=== PATIENT | female | born 1945 | race Caucasian/White ===

== ENCOUNTER 2017-09-01 05:35 | Day surgery (SDC) | payer MEDICARE ==
[2017-09-01] MEDS ORDERED: DIPRIVAN 200 MG/20 ML IV ONE (05:36)
[2017-09-01] MEDS ORDERED: Ketamine HCl 50 MG/ML IJ ONE (05:36)
[2017-09-01] MEDS ORDERED: Lactated Ringers 1,000 ML IV SCH (06:00)
[2017-09-01] MEDS ORDERED: Xopenex 1.25 MG/0.5 ML UD NEBULE IH ONE ×2 (06:27→06:43)
[2017-09-01] MEDS ORDERED: Sodium Chloride 3 ML UD NEBULES IH ONE (06:27)
[2017-09-01] MEDS ORDERED: Lactated Ringers 1,000 ML IV ONE (08:14)
[2017-09-01 09:10] VITALS: BP 149/70; O2SAT 92
[2017-09-01 09:12] VITALS: PULSE 101
--- NOTE | 2017-09-01 09:35 | OP ---
SURGERY DATE/TIME: 09/01/2017 0707 PREOPERATIVE DIAGNOSES: 1) Screening colonoscopy. 2) Family history of colon cancer. POSTOPERATIVE DIAGNOSIS: Five colon polyps. PROCEDURE: Colonoscopy. SURGEON: Dimitry June M.D. ANESTHESIA: MAC by Napoleon Juarez CRNA. ESTIMATED BLOOD LOSS: Minimal. SPECIMENS: Five hot forceps polypectomies. DESCRIPTION OF PROCEDURE: After informed written consent was obtained, the patient was taken to the endoscopy suite. She underwent monitored anesthesia and digital rectal exam showed normal sphincter tone. The scope was inserted into the rectum and sequentially the entire colonic mucosa was traversed. The level of cecum was reached and verified with direct visualization of ileocecal valve. Upon withdrawal there was a single sessile polyp in the ascending colon which was grasped with forceps and cauterized. The lesion was removed and sent for pathology. Two more lesions were encountered in similar fashion in the transverse colon and likewise removed with hot forceps. There were two more small sessile polyps encountered in the sigmoid colon region which were also removed with hot forceps and sent for pathology testing. Retroflexion was performed prior to withdrawal and showed no obvious internal lesions. The scope was removed and the patient was transferred to the recovery room in excellent condition.
== END 2017-09-01 09:05 | disposition home or self-care (01) ==
LOC: SDC 05:35
PROVIDERS: ATTEND Family Medicine
PROC: 0DBK8ZX Excision of Ascending Colon, Via Natural or Artificial Opening Endoscopic, Diagnostic (ICD-10-PCS; principal; 2017-09-01)
PROC: 0DBL8ZX Excision of Transverse Colon, Via Natural or Artificial Opening Endoscopic, Diagnostic (ICD-10-PCS; 2017-09-01)
PROC: 0DBN8ZX Excision of Sigmoid Colon, Via Natural or Artificial Opening Endoscopic, Diagnostic (ICD-10-PCS; 2017-09-01)
DX: K63.5 Polyp of colon (principal); Z12.11 Encounter for screening for malignant neoplasm of colon; Z80.0 Family history of malignant neoplasm of digestive organs
CPT/HCPCS: 00810; 36415; 82962; 94640; 99100; J2704; A9270-GY

== ENCOUNTER 2018-10-12 10:03 | Inpatient (IN) | payer MEDICARE ==
[2018-10-12] MEDS ORDERED: Sodium Chloride 0.9% 10 ML FLUSH Syringe IV PRN (12:15)
[2018-10-12] MEDS ORDERED: DUONEB 0.5-3 MG/3 ml Neb IH SCH (15:00)
[2018-10-12] MEDS: Zithromax 500 MG/ 250 ML NaCl Premix 500 MG/250 ML IVPB IV SCH (16:02)
[2018-10-12] MEDS: solu-MEDROL 125 MG IV SCH ×2 (16:02→17:21)
[2018-10-12] MEDS: Sodium Chloride 0.9% 10 ML FLUSH Syringe IV SCH ×2 (16:03→21:49)
[2018-10-12 16:04] LABS: BASOPHIL % 0.3 % (0.0-0.4); Basophil (Absolute #) 0.04 (0-0.4); Eosinophil % 1.9 % (0.00-5.0); Eosinophil (Absolute #) 0.25 (0-0.5); Granulocyte Absolute (ANC) 9.93 (1.4-6.9); Granulocytes % 76.8 % (36.0-66.0); Hematocrit 41.4 % (35-47); Hemoglobin 13.2 gm/dl (12.0-16.0); Lymphocytes % 14.7 % (24.0-44.0); Mean Cell Volume 92.4 fl (78-100); Mean Corpuscular Hemoglobin 29.5 pg (26-32); Mean Corpuscular Hgb Concent. 31.9 g/dl (32-36); Mean Platelet Volume 10.4 fl (6-9.5); Monocyte (Absolute #) 0.81 (0.0-1.3); Monocytes % 6.3 % (0.0-12.0); Platelet Count 336 K/mm3 (150-450); Red Blood Count 4.48 M/mm3 (4.1-5.4); Red Cell Distribution Width 13.3 % (11.5-14.0); White Blood Count 12.9 K/mm3 (4.0-10.5)
--- NOTE | 2018-10-12 16:12 | XRAY ---
Indication: Wheezing and cough. COPD. Comparison: March 13, 2017. PA/lateral chest remains clear. Heart and mediastinal structures within normal limits. Bony thorax intact again with mild osteopenia and degenerative changes. Again previous left carotid endarterectomy. Impression: Stable nonacute chest with chronic features.
[2018-10-12] MEDS: ROCEPHIN 1 Gm-D5w 50 ml Bag** 1 G/50 ML IVPB IV SCH (16:20)
[2018-10-12 16:49] LABS: ALBUMIN 4.2 g/dL (3.5-5.0); ALKALINE PHOSPHATASE 73 U/L (38-126); ANION GAP 12.7 MEQ/L (5-15); BLOOD UREA NITROGEN 13 mg/dL (7-17); CHLORIDE 96 mmol/L (98-107); Calcium 9.5 mg/dL (8.4-10.2); Carbon Dioxide 28 mmol/L (22-30); Creatinine 1 0.64 mg/dL (0.52-1.04); Glucose 146 mg/dL (74-106); Potassium 3.7 mmol/L (3.5-5.1); SGOT/AST 26 U/L (14-36); SGPT/ALT 16 U/L (0-35); SODIUM 134 mmol/L (137-145); Total Protein 7.3 g/dL (6.3-8.2)
[2018-10-12] MEDS ORDERED: NYSTOP POWDER 15 GM TP PRN (17:30)
[2018-10-12] MEDS ORDERED: Ventolin Hfa MDI IH PRN (17:30)
[2018-10-12] MEDS: NovoLOG Insulin SQ PRN ×2 (17:49→21:50)
[2018-10-12] MEDS: PROVENTIL 2.5 MG/3 ML NEB IH SCH (18:46)
[2018-10-12] MEDS: Advair Hfa 115/21 Common canister IH SCH (18:48)
[2018-10-12] MEDS: Spiriva 18 Mcg/Cap Inhaler IH SCH (18:49)
[2018-10-12] MEDS ORDERED: PROVENTIL 2.5 MG/3 ML NEB IH SCH (19:00)
[2018-10-12] MEDS: PLAVIX 75 MG Tablet PO SCH (21:48)
[2018-10-12] MEDS: Toprol Xl 50 MG PO SCH (21:48)
[2018-10-12] MEDS: Ambien 10 MG PO SCH (21:48)
[2018-10-12] MEDS: ZOCOR 20MG PO SCH (21:49)
[2018-10-12 21:59] LABS: Appearance CLEAR (CLEAR); Bilirubin NEGATIVE (NEGATIVE); Blood NEGATIVE Ery/ul (0-5); Glucose NEGATIVE (NEGATIVE); Ketones NEGATIVE (NEGATIVE); Leukocyte Esterase NEGATIVE (NEGATIVE); Nitrite NEGATIVE (NEGATIVE); Protein,Urine Dip NEGATIVE (Negative); Specific Gravity 1.008 (1.005-1.025); Urobilinogen NEGATIVE mg/dL (0-1)
[2018-10-12] MEDS ORDERED: ADVAIR 250-50 DISKUS 14 DOSE IH SCH (22:00)
[2018-10-13] MEDS: solu-MEDROL 125 MG IV SCH ×4 (00:10→18:15)
[2018-10-13] MEDS: Sodium Chloride 0.9% 10 ML FLUSH Syringe IV SCH ×3 (05:35→21:31)
[2018-10-13] MEDS: PROVENTIL 2.5 MG/3 ML NEB IH SCH ×4 (06:52→18:43)
[2018-10-13] MEDS: Advair Hfa 115/21 Common canister IH SCH ×2 (06:52→18:45)
[2018-10-13] MEDS ORDERED: MEDICATION INTERVENTION MC SCH (07:45)
[2018-10-13] MEDS: NovoLOG Insulin SQ SCH ×3 (08:11→16:33)
[2018-10-13] MEDS: NovoLOG Insulin SQ PRN ×4 (08:12→21:31)
--- NOTE | 2018-10-13 08:52 | PCM.NOTE ---
Date and Time: 10/13/18846 Subjective Assessment: Pt admitted from office yesterday with COPD exacerbation, failed OP antibiotics and steroid injection. Today she says she is feeling a little better, breathing easier. fletcher po. Objective Exam General Appearance: no apparent distress, obese Neurologic Exam: alert, oriented x 3, cooperative, other (R hand tremor at rest) Skin Exam: normal color, warm, dry, No rash Eye Exam: eyes nml inspection Ears, Nose, Throat Exam: moist mucous membranes Respiratory Exam: diminished breath sounds, prolonged expirations, wheezing ( throughout), No crackles/rales, No rhonchi Cardiovascular Exam: regular rate/rhythm, normal heart sounds, No murmur Extremity Exam: No pedal edema, No swelling OBJECTIVE DATA Vital Signs: Vital Signs - 24 hr Temp Pulse Resp BP Pulse Ox 10/13/18 08:00 22 10/13/18 06:57 76 22 94 L 10/13/18 06:56 97.7 F 88 20 133/63 93 L 10/13/18 04:00 97.9 F 75 20 124/59 95 10/13/18 00:00 98.3 F 86 18 126/58 96 10/12/18 20:00 18 10/12/18 19:33 98.8 F 104 H 18 136/64 91 L 10/12/18 18:46 103 H 19 90 L 10/12/18 16:30 97.8 F 101 H 20 136/72 96 10/12/18 15:50 101 H 20 96 Oxygen-Last 24 hours O2 Percentage 4 Liters = 36% Oxygen Flowrate (L/min)-RT 93 Pain Assessment - Last Documented Pain Scale Used 0-10 Pain Scale Intake and Output: Intake & Output 10/10/18 10/11/18 10/12/18 10/13/18 11:59 11:59 11:59 11:59 Intake Total 1020 Output Total 1300 Balance -280 Weight 104.8 kg Lab Results: Accuchecks Date 10/13/18 Date 10/12/18 Date 10/12/18 Date 10/12/18 Time 07:30 Time 21:00 Time 17:00 Time 16:30 Accucheck Value: 316 Accucheck Value: 250 Accucheck Value: 154 Accucheck Value: 154 Lab Results-Last 24 Hours 10/12/18 10/12/1818 Range/Units 15:43 15:43 15:43 WBC 12.9 H (4.0-10.5) K/mm3 RBC 4.48 (4.1-5.4) M/mm3 Hgb 13.2 (12.0-16.0) gm/dl Hct 41.4 (35-47) % MCV 92.4 (78-100) fl MCH 29.5 (26-32) pg MCHC 31.9 L (32-36) g/dl RDW 13.3 (11.5-14.0) % Plt Count 336 (150-450) K/mm3 MPV 10.4 H (6-9.5) fl Gran % 76.8 H (36.0-66.0) % Eos # (Auto) 0.25 (0-0.5) Absolute Lymphs (auto) 1.90 (1.0-4.6) Absolute Monos (auto) 0.81 (0.0-1.3) Lymphocytes % 14.7 L (24.0-44.0) % Monocytes % 6.3 (0.0-12.0) % Eosinophils % 1.9 (0.00-5.0) % Basophils % 0.3 (0.0-0.4) % Absolute Granulocytes 9.93 H (1.4-6.9) Basophils # 0.04 (0-0.4) Sodium 134 L (137-145) mmol/L Potassium 3.7 (3.5-5.1) mmol/L Chloride 96 L (98-107) mmol/L Carbon Dioxide 28 (22-30) mmol/L Anion Gap 12.7 (5-15) MEQ/L BUN 13 (7-17) mg/dL Creatinine 0.64 (0.52-1.04) mg/dL Estimated GFR > 60.0 ML/MIN Glucose 146 H (74-106) mg/dL Hemoglobin A1c 7.33 H (4.5-6.0) % Calcium 9.5 (8.4-10.2) mg/dL Total Bilirubin 0.40 (0.2-1.3) mg/dL AST 26 (14-36) U/L ALT 16 (0-35) U/L Alkaline Phosphatase 73 (38-126) U/L Serum Total Protein 7.3 (6.3-8.2) g/dL Albumin 4.2 (3.5-5.0) g/dL Urine Color (YELLOW) Urine Appearance (CLEAR) Urine pH (5-6) Ur Specific [place] (1.005-1.025) Urine Protein (Negative) Urine Ketones (NEGATIVE) Urine Blood (0-5) Tony/ul Urine Nitrite (NEGATIVE) Urine Bilirubin (NEGATIVE) Urine Urobilinogen (0-1) mg/dL Ur Leukocyte Esterase (NEGATIVE) Urine WBC (Auto) (0-5) /HPF Urine RBC (Auto) (0-2) /HPF U Epithel Cells (Auto) (FEW) /HPF Urine Bacteria (Auto) (NEGATIVE) /HPF Urine Glucose (NEGATIVE) mg/dL 10/12/18 Range/Units 21:32 WBC (4.0-10.5) K/mm3 RBC (4.1-5.4) M/mm3 Hgb (12.0-16.0) gm/dl Hct (35-47) % MCV (78-100) fl MCH (26-32) pg MCHC (32-36) g/dl RDW (11.5-14.0) % Plt Count (150-450) K/mm3 MPV (6-9.5) fl Gran % (36.0-66.0) % Eos # (Auto) (0-0.5) Absolute Lymphs (auto) (1.0-4.6) Absolute Monos (auto) (0.0-1.3) Lymphocytes % (24.0-44.0) % Monocytes % (0.0-12.0) % Eosinophils % (0.00-5.0) % Basophils % (0.0-0.4) % Absolute Granulocytes (1.4-6.9) Basophils # (0-0.4) Sodium (137-145) mmol/L Potassium (3.5-5.1) mmol/L Chloride (98-107) mmol/L Carbon Dioxide (22-30) mmol/L Anion Gap (5-15) MEQ/L BUN (7-17) mg/dL Creatinine (0.52-1.04) mg/dL Estimated GFR ML/MIN Glucose (74-106) mg/dL Hemoglobin A1c (4.5-6.0) % Calcium (8.4-10.2) mg/dL Total Bilirubin (0.2-1.3) mg/dL AST (14-36) U/L ALT (0-35) U/L Alkaline Phosphatase (38-126) U/L Serum Total Protein (6.3-8.2) g/dL Albumin (3.5-5.0) g/dL Urine Color YELLOW (YELLOW) Urine Appearance CLEAR (CLEAR) Urine pH 7.0 (5-6) Ur Specific [place] 1.008 (1.005-1.025) Urine Protein NEGATIVE (Negative) Urine Ketones NEGATIVE (NEGATIVE) Urine Blood NEGATIVE (0-5) Tony/ul Urine Nitrite NEGATIVE (NEGATIVE) Urine Bilirubin NEGATIVE (NEGATIVE) Urine Urobilinogen NEGATIVE (0-1) mg/dL Ur Leukocyte Esterase NEGATIVE (NEGATIVE) Urine WBC (Auto) NONE (0-5) /HPF Urine RBC (Auto) NONE (0-2) /HPF U Epithel Cells (Auto) NONE (FEW) /HPF Urine Bacteria (Auto) NONE SEEN (NEGATIVE) /HPF Urine Glucose NEGATIVE (NEGATIVE) mg/dL Radiology Exams: Radiology Procedures Category Date Time Status CHEST 2 VIEWS (PA AND LAT) Routine Exams 10/12/18 15:45 Completed Assessment/Plan (1) COPD exacerbation Current Visit: Yes Status: Acute Assessment & Plan: on IV rocephin and zithromax, and solumedrol 80mg IV q6h. Doing better. Will likely be here several days. Code(s): J44.1 - CHRONIC OBSTRUCTIVE PULMONARY DISEASE W (ACUTE) EXACERBATION (2) Diabetes mellitus Current Visit: Yes Status: Acute Qualifiers: Diabetes mellitus type: type 2 Diabetes mellitus middle or intermediate school principal insulin use: with mcc use Diabetes mellitus complication status: with unspecified complications Qualified Code(s): E11.8 - Type 2 diabetes mellitus with unspecified complications; Z79.4 - alf (current) use of insulin Assessment & Plan: To clarify, she takes 22 units lantus at home- fixing in EMR (our record indicated 100 units qhs). Will increase to 30 units here since BS will be elevated due to steroids. Code(s): E11.9 - TYPE 2 DIABETES MELLITUS WITHOUT COMPLICATIONS (3) Morbid obesity Current Visit: Yes Status: Chronic Code(s): E66.01 - MORBID (SEVERE) OBESITY DUE TO EXCESS CALORIES (4) Osteoarthritis Current Visit: Yes Status: Chronic Code(s): M19.90 - UNSPECIFIED OSTEOARTHRITIS, UNSPECIFIED SITE (5) CAD (coronary artery disease) Current Visit: Yes Status: Chronic Qualifiers: Coronary Disease-Associated Artery/Lesion type: [place] artery [place] vs. transplanted heart: [place] heart Associated angina: without angina Qualified Code(s): I25.10 - Atherosclerotic heart disease of [place] coronary artery without angina pectoris Code(s): I25.10 - ATHSCL HEART DISEASE OF [place] CORONARY ARTERY W/O ANG PCTRS (6) Hypothyroid Current Visit: Yes Status: Chronic Qualifiers: Hypothyroidism type: acquired Qualified Code(s): E03.9 - Hypothyroidism, unspecified Code(s): E03.9 - HYPOTHYROIDISM, UNSPECIFIED (7) Hypertension Current Visit: Yes Status: Chronic Qualifiers: Hypertension type: essential hypertension Qualified Code(s): I10 - Essential (primary) hypertension Code(s): I10 - ESSENTIAL (PRIMARY) HYPERTENSION (8) Tremor Current Visit: Yes Status: Chronic Assessment & Plan: Pt with tremor at rest, seems consistent with Parkinson's disease but I have not discussed this with pt as she has appt in November with neurology for workup and dx. Code(s): R25.1 - TREMOR, UNSPECIFIED
[2018-10-13] MEDS: ROCEPHIN 1 Gm-D5w 50 ml Bag** 1 G/50 ML IVPB IV SCH (09:28)
[2018-10-13] MEDS: ENOXAPARIN SODIUM SQ SCH (09:29)
[2018-10-13] MEDS: SYNTHROID 50 MCG PO SCH (09:30)
[2018-10-13] MEDS: CLARITIN 10 MG PO SCH (09:36)
[2018-10-13] MEDS: NORVASC 5 MG PO SCH (09:37)
[2018-10-13] MEDS: LASIX 20 MG PO SCH (09:37)
[2018-10-13] MEDS: MAG-OX 400 PO SCH (09:37)
[2018-10-13] MEDS: Cymbalta 30 MG Capsule PO SCH (09:37)
[2018-10-13] MEDS: Toprol Xl 50 MG PO SCH ×2 (09:38→21:30)
[2018-10-13] MEDS: Zithromax 500 MG/ 250 ML NaCl Premix 500 MG/250 ML IVPB IV SCH (09:38)
[2018-10-13] MEDS ORDERED: NON-FORMULARY ITEM (Aripiprazole [Abilify] 2 MG) PO SCH (10:00)
[2018-10-13] MEDS ORDERED: ARIPIPRAZOLE PO SCH (10:00)
[2018-10-13] MEDS ORDERED: NON-FORMULARY ITEM (Duloxetine Hcl [Cymbalta] 60 MG) PO SCH (10:00)
[2018-10-13] MEDS ORDERED: NON-FORMULARY ITEM (Pravastatin Sodium [Pravastatin Sodium] 80 MG) PO SCH (10:00)
[2018-10-13] MEDS ORDERED: NON-FORMULARY ITEM (Magnesium [Magnesium] 500 MG) PO SCH (10:00)
[2018-10-13] MEDS ORDERED: NON-FORMULARY ITEM (Amlodipine Besylate [Norvasc] 2.5 MG) PO SCH (10:00)
[2018-10-13] MEDS ORDERED: NON-FORMULARY ITEM (Cetirizine Hcl [Cetirizine Hcl] 10 MG) PO SCH (10:00)
[2018-10-13] MEDS: Spiriva 18 Mcg/Cap Inhaler IH SCH ×2 (18:47→18:51)
[2018-10-13] MEDS: ZOCOR 20MG PO SCH (21:30)
[2018-10-13] MEDS: Ambien 10 MG PO SCH (21:30)
[2018-10-13] MEDS: PLAVIX 75 MG Tablet PO SCH (21:30)
[2018-10-13] MEDS: Lantus Insulin SQ SCH (21:31)
[2018-10-14] MEDS: solu-MEDROL 125 MG IV SCH ×4 (00:48→17:42)
[2018-10-14] MEDS: Sodium Chloride 0.9% 10 ML FLUSH Syringe IV SCH ×3 (06:10→21:03)
[2018-10-14] MEDS: PROVENTIL 2.5 MG/3 ML NEB IH SCH (06:40)
[2018-10-14] MEDS: Advair Hfa 115/21 Common canister IH SCH ×2 (06:40→19:14)
[2018-10-14] MEDS: NovoLOG Insulin SQ SCH ×3 (08:06→17:42)
[2018-10-14] MEDS: NovoLOG Insulin SQ PRN ×2 (08:06→12:42)
--- NOTE | 2018-10-14 09:02 | PCM.NOTE ---
Date and Time: 10/14/18 0900 Subjective Assessment: Pt feels like she's worse. RT thinks she is having a reaction to her nebs because she seems worse afterward, almost like a bronchospasm. Pt fletcher po. Not on O2. - Review of Systems Constitutional: No Fever Respiratory: Cough, Short Of Breath Objective Exam General Appearance: no apparent distress, alert, obese Neurologic Exam: oriented x 3, cooperative Skin Exam: normal color, warm, dry, No rash Respiratory Exam: diminished breath sounds (poor to fair air exchange), wheezing (throughout), No crackles/rales, No rhonchi Cardiovascular Exam: regular rate/rhythm, normal heart sounds, No murmur OBJECTIVE DATA Vital Signs: Vital Signs - 24 hr Temp Pulse Resp BP Pulse Ox 10/14/18 07:04 98.1 F 70 20 120/58 92 L 10/14/18 06:42 75 20 92 L 10/14/18 04:00 98.6 F 75 21 111/56 93 L 10/14/18 00:00 18 10/13/18 23:40 98.3 F 73 18 121/56 92 L 10/13/18 20:00 18 10/13/18 19:14 98.6 F 86 18 170/65 99 10/13/18 18:43 79 20 95 10/13/18 16:10 98.1 F 87 20 126/57 94 L 10/13/18 16:00 20 10/13/18 14:53 82 20 92 L 10/13/18 12:00 20 10/13/18 11:11 85 20 92 L 10/13/18 11:09 98.2 F 83 20 137/61 94 L Pain Assessment - Last Documented Pain Intensity 0 Pain Scale Used 0-10 Pain Scale Intake and Output: Intake & Output 10/11/18 10/12/18 10/13/18 10/14/18 11:59 11:59 11:59 11:59 Intake Total 1380 1020 Output Total 1500 1950 Balance -120 -930 Weight 104.8 kg Lab Results: Accuchecks Date 10/13/18 Date 10/13/18 Date 10/13/18 Time 21:30 Time 16:30 Time 11:30 Accucheck Value: 367 Accucheck Value: 312 Accucheck Value: 261 Accucheck Value: 359 Radiology Exams: Radiology Procedures Category Date Time Status CHEST 2 VIEWS (PA AND LAT) Routine Exams 10/12/18 15:45 Completed Assessment/Plan (1) COPD exacerbation Current Visit: Yes Status: Acute Assessment & Plan: will add theophylline and mucinex today. hold breathing tx. if not improving will consult pulmonology. 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 insulin use: with ferry terminal agent use Diabetes mellitus complication status: with unspecified complications Qualified Code(s): E11.8 - Type 2 diabetes mellitus with unspecified complications; Z79.4 - alf (current) use of insulin Code(s): E11.9 - TYPE 2 DIABETES MELLITUS WITHOUT COMPLICATIONS (3) Morbid obesity Current Visit: Yes Status: Chronic Code(s): E66.01 - MORBID (SEVERE) OBESITY DUE TO EXCESS CALORIES (4) Osteoarthritis Current Visit: Yes Status: Chronic Code(s): M19.90 - UNSPECIFIED OSTEOARTHRITIS, UNSPECIFIED SITE (5) CAD (coronary artery disease) Current Visit: Yes Status: Chronic Qualifiers: Coronary Disease-Associated Artery/Lesion type: [place] artery [place] vs. transplanted heart: [place] heart Associated angina: without angina Qualified Code(s): I25.10 - Atherosclerotic heart disease of [place] coronary artery without angina pectoris Code(s): I25.10 - ATHSCL HEART DISEASE OF [place] CORONARY ARTERY W/O ANG PCTRS (6) Hypothyroid Current Visit: Yes Status: Chronic Qualifiers: Hypothyroidism type: acquired Qualified Code(s): E03.9 - Hypothyroidism, unspecified Code(s): E03.9 - HYPOTHYROIDISM, UNSPECIFIED (7) Hypertension Current Visit: Yes Status: Chronic Qualifiers: Hypertension type: essential hypertension Qualified Code(s): I10 - Essential (primary) hypertension Code(s): I10 - ESSENTIAL (PRIMARY) HYPERTENSION (8) Tremor Current Visit: Yes Status: Chronic Code(s): R25.1 - TREMOR, UNSPECIFIED
[2018-10-14] MEDS ORDERED: THEOPHYLLINE ER 24HR PO SCH (10:00)
[2018-10-14] MEDS: NORVASC 5 MG PO SCH (10:16)
[2018-10-14] MEDS: CLARITIN 10 MG PO SCH (10:17)
[2018-10-14] MEDS: Cymbalta 30 MG Capsule PO SCH (10:17)
[2018-10-14] MEDS: MAG-OX 400 PO SCH (10:17)
[2018-10-14] MEDS: Mucinex 600MG ER Tabs PO SCH ×2 (10:17→21:02)
[2018-10-14] MEDS: SYNTHROID 50 MCG PO SCH (10:18)
[2018-10-14] MEDS: ENOXAPARIN SODIUM SQ SCH (10:19)
[2018-10-14] MEDS: LASIX 20 MG PO SCH (10:19)
[2018-10-14] MEDS: ROCEPHIN 1 Gm-D5w 50 ml Bag** 1 G/50 ML IVPB IV SCH (10:22)
[2018-10-14] MEDS: Toprol Xl 50 MG PO SCH ×2 (10:29→21:02)
[2018-10-14] MEDS: Zithromax 500 MG/ 250 ML NaCl Premix 500 MG/250 ML IVPB IV SCH (11:03)
[2018-10-14] MEDS: Aminophylline 500 MG/20 ML*** 500 MG in Dextrose 5%/Water IV Soln. 500 ML 480 ML IV SCH (11:06)
[2018-10-14] MEDS: Abilify 10 MG PO SCH (17:38)
[2018-10-14] MEDS: Spiriva 18 Mcg/Cap Inhaler IH SCH (19:15)
[2018-10-14] MEDS: Lantus Insulin SQ SCH (21:01)
[2018-10-14] MEDS: Ambien 10 MG PO SCH (21:02)
[2018-10-14] MEDS: ZOCOR 20MG PO SCH (21:02)
[2018-10-14] MEDS: PLAVIX 75 MG Tablet PO SCH (21:02)
[2018-10-15] MEDS: solu-MEDROL 125 MG IV SCH ×5 (01:11→23:02)
[2018-10-15] MEDS: Sodium Chloride 0.9% 10 ML FLUSH Syringe IV SCH ×3 (06:49→21:04)
[2018-10-15] MEDS: Advair Hfa 115/21 Common canister IH SCH ×2 (07:04→20:33)
[2018-10-15] MEDS: NovoLOG Insulin SQ PRN ×3 (08:24→21:05)
[2018-10-15] MEDS: NovoLOG Insulin SQ SCH ×3 (08:24→17:05)
[2018-10-15] MEDS: ROCEPHIN 1 Gm-D5w 50 ml Bag** 1 G/50 ML IVPB IV SCH (09:18)
[2018-10-15] MEDS: ENOXAPARIN SODIUM SQ SCH (09:18)
[2018-10-15] MEDS: MAG-OX 400 PO SCH (09:18)
[2018-10-15] MEDS: Cymbalta 30 MG Capsule PO SCH (09:19)
[2018-10-15] MEDS: Mucinex 600MG ER Tabs PO SCH ×2 (09:19→21:04)
[2018-10-15] MEDS: LASIX 20 MG PO SCH (09:19)
[2018-10-15] MEDS: SYNTHROID 50 MCG PO SCH (09:19)
[2018-10-15] MEDS: CLARITIN 10 MG PO SCH (09:19)
[2018-10-15] MEDS: NORVASC 5 MG PO SCH (09:19)
[2018-10-15] MEDS: Abilify 10 MG PO SCH (09:19)
[2018-10-15] MEDS: Toprol Xl 50 MG PO SCH ×2 (09:19→21:04)
[2018-10-15] MEDS: Aminophylline 500 MG/20 ML*** 500 MG in Dextrose 5%/Water IV Soln. 500 ML 480 ML IV SCH (12:14)
--- NOTE | 2018-10-15 13:06 | PCM.NOTE ---
Date and Time: 10/15/18 1302 Subjective Assessment: Pt is feeling better, breathing is better. Having a hard time sleeping, she thinks due to steroids. Jemal po well. On room air in the day, and on home O2 of 4L at night. - Review of Systems Constitutional: No Fever Respiratory: Cough, Short Of Breath Objective Exam General Appearance: no apparent distress, alert, obese Neurologic Exam: oriented x 3, cooperative Skin Exam: normal color, warm, dry, No rash Ears, Nose, Throat Exam: moist mucous membranes Neck Exam: normal inspection Respiratory Exam: diminished breath sounds (fair to good air exchange), wheezing (exp wheezes throughout, but decreased from yesterday), No crackles/ rales, No rhonchi Cardiovascular Exam: regular rate/rhythm, normal heart sounds, No murmur OBJECTIVE DATA Vital Signs: Vital Signs - 24 hr Temp Pulse Resp BP Pulse Ox 10/15/18 12:00 18 10/15/18 11:40 99.1 F 65 18 161/67 93 L 10/15/18 08:00 98.2 F 64 20 148/66 93 L 10/15/18 07:07 65 22 92 L 10/15/18 04:00 98.5 F 64 18 116/59 96 10/15/18 00:00 21 10/14/18 23:44 98.9 F 67 21 120/58 94 L 10/14/18 20:00 21 10/14/18 19:55 67 22 93 L 10/14/18 19:33 98.2 F 76 18 118/57 94 L 10/14/18 15:40 98.7 F 71 18 115/55 94 L Oxygen-Last 24 hours O2 Percentage 4 Liters = 36% O2 Percentage 4 Liters = 36% Pain Assessment - Last Documented Pain Intensity 0 Pain Scale Used 0-10 Pain Scale Intake and Output: Intake & Output 10/13/18 10/14/18 10/15/18 10/16/18 11:59 11:59 11:59 11:59 Intake Total 1380 1020 1785 Output Total 1500 1950 8361 Balance -476 -832 -9246 Weight 104.8 kg 104.8 kg Lab Results: Accuchecks Date 10/15/18 Date 10/15/18 Date 10/14/18 Time 11:22 Time 08:53 Time 21:00 Accucheck Value: 236 Accucheck Value: 255 Accucheck Value: 150 Accucheck Value: 139 Lab Results-Last 24 Hours 10/15/18 Range/Units 05:35 Theophylline 5.6 L (10-20) ug/mL Assessment/Plan (1) COPD exacerbation Current Visit: Yes Status: Acute Onset Date: ~10/12/18 Assessment & Plan: Doing better on theophylline drip. Also on rocephin day #4. Had 3 days of IV zithromax. on Solumedrol 80mg IV q6h. My plan is decrease the steroid slightly , to 60mg IV q6h, and leave her on the theophylline drip until tomorrow. Code(s): J44.1 - CHRONIC OBSTRUCTIVE PULMONARY DISEASE W (ACUTE) EXACERBATION (2) Diabetes mellitus Current Visit: Yes Status: Chronic Qualifiers: Diabetes mellitus type: type 2 Diabetes mellitus assisted insulin use: with assisted use Diabetes mellitus complication status: with unspecified complications Qualified Code(s): E11.8 - Type 2 diabetes mellitus with unspecified complications; Z79.4 - assisted (current) use of insulin Code(s): E11.9 - TYPE 2 DIABETES MELLITUS WITHOUT COMPLICATIONS (3) Morbid obesity Current Visit: Yes Status: Chronic Code(s): E66.01 - MORBID (SEVERE) OBESITY DUE TO EXCESS CALORIES (4) Osteoarthritis Current Visit: Yes Status: Chronic Qualifiers: Osteoarthritis location: unspecified site Osteoarthritis type: unspecified Qualified Code(s): M19.90 - Unspecified osteoarthritis, unspecified site Code(s): M19.90 - UNSPECIFIED OSTEOARTHRITIS, UNSPECIFIED SITE (5) CAD (coronary artery disease) Current Visit: Yes Status: Chronic Qualifiers: Coronary Disease-Associated Artery/Lesion type: [place] artery [place] vs. transplanted heart: [place] heart Associated angina: without angina Qualified Code(s): I25.10 - Atherosclerotic heart disease of [place] coronary artery without angina pectoris Code(s): I25.10 - ATHSCL HEART DISEASE OF [place] CORONARY ARTERY W/O ANG PCTRS (6) Hypothyroid Current Visit: Yes Status: Chronic Qualifiers: Hypothyroidism type: acquired Qualified Code(s): E03.9 - Hypothyroidism, unspecified Code(s): E03.9 - HYPOTHYROIDISM, UNSPECIFIED (7) Hypertension Current Visit: Yes Status: Chronic Qualifiers: Hypertension type: essential hypertension Qualified Code(s): I10 - Essential (primary) hypertension Assessment & Plan: bp 115-161/55-67. The higher BP is isolated so will continue current medications and observe. Code(s): I10 - ESSENTIAL (PRIMARY) HYPERTENSION (8) Tremor Current Visit: Yes Status: Chronic Code(s): R25.1 - TREMOR, UNSPECIFIED
[2018-10-15] MEDS: Spiriva 18 Mcg/Cap Inhaler IH SCH (20:34)
[2018-10-15] MEDS: Ambien 10 MG PO SCH (21:04)
[2018-10-15] MEDS: ZOCOR 20MG PO SCH (21:04)
[2018-10-15] MEDS: Lantus Insulin SQ SCH (21:04)
[2018-10-15] MEDS: PLAVIX 75 MG Tablet PO SCH (21:04)
[2018-10-16] MEDS: Sodium Chloride 0.9% 10 ML FLUSH Syringe IV SCH ×3 (05:57→21:40)
[2018-10-16] MEDS: solu-MEDROL 125 MG IV SCH ×4 (05:57→23:29)
[2018-10-16] MEDS: Advair Hfa 115/21 Common canister IH SCH ×2 (07:20→19:27)
[2018-10-16] MEDS: NovoLOG Insulin SQ SCH ×3 (08:20→18:05)
[2018-10-16] MEDS: SYNTHROID 50 MCG PO SCH (08:21)
[2018-10-16] MEDS: NovoLOG Insulin SQ PRN ×3 (08:21→21:38)
[2018-10-16] MEDS: Abilify 10 MG PO SCH (08:22)
[2018-10-16] MEDS: Mucinex 600MG ER Tabs PO SCH ×2 (08:22→21:37)
[2018-10-16] MEDS: LASIX 20 MG PO SCH (08:22)
[2018-10-16] MEDS: CLARITIN 10 MG PO SCH (08:22)
[2018-10-16] MEDS: Cymbalta 30 MG Capsule PO SCH (08:22)
[2018-10-16] MEDS: NORVASC 5 MG PO SCH (08:22)
[2018-10-16] MEDS: MAG-OX 400 PO SCH (08:22)
[2018-10-16] MEDS: Toprol Xl 50 MG PO SCH ×2 (08:22→21:37)
[2018-10-16] MEDS: ENOXAPARIN SODIUM SQ SCH (08:22)
[2018-10-16] MEDS: ROCEPHIN 1 Gm-D5w 50 ml Bag** 1 G/50 ML IVPB IV SCH (09:36)
--- NOTE | 2018-10-16 14:50 | PCM.NOTE ---
Date and Time: 10/16/18 1448 Subjective Assessment: She is feeling much better. Would like to go home. Objective Exam General Appearance: no apparent distress, alert, obese Neurologic Exam: oriented x 3, cooperative Skin Exam: normal color, warm, dry, No rash Respiratory Exam: diminished breath sounds (good air exchange), wheezing ( scattered exp wheezes), No crackles/rales, No rhonchi Cardiovascular Exam: regular rate/rhythm, normal heart sounds, No murmur Gastrointestinal/Abdomen Exam: soft, No tenderness Extremity Exam: normal inspection OBJECTIVE DATA Vital Signs: Vital Signs - 24 hr Temp Pulse Resp BP Pulse Ox 10/16/18 11:39 98.3 F 63 18 115/74 96 10/16/18 08:00 20 10/16/18 07:22 65 20 92 L 10/16/18 07:17 98.3 F 62 18 121/61 92 L 10/16/18 04:00 98.5 F 68 18 156/68 94 L 10/16/18 00:00 19 10/15/18 23:41 98.6 F 65 19 120/57 94 L 10/15/18 21:07 61 18 95 10/15/18 20:00 18 10/15/18 19:36 98.7 F 74 18 112/59 94 L 10/15/18 16:00 98.2 F 66 20 144/66 94 L Oxygen-Last 24 hours O2 Percentage 4 Liters = 36% Pain Assessment - Last Documented Pain Intensity 0 Pain Scale Used 0-10 Pain Scale,FLACC Intake and Output: Intake & Output 10/14/18 10/15/18 10/16/18 10/17/18 11:59 11:59 11:59 11:59 Intake Total 1020 1785 850 Output Total 5436 8084 3800 Balance -611 -5142 -5497 Weight 104.8 kg Lab Results: Accuchecks Date 10/16/18 Date 10/15/18 Date 10/15/18 Time 08:21 Time 21:09 Time 16:39 Accucheck Value: 218 Accucheck Value: 196 Accucheck Value: 139 Lab Results-Last 24 Hours 10/16/18 Range/Units 10:15 Theophylline 9.1 L (10-20) ug/mL Multi-Disciplinary Progress Notes: Multi-Disciplinary Progress Notes 10/16/18 10:12 Case Management Note by Araceli San REVIEWED, PLANS TO RETURN HOME TO PRE EPISODIC LEVEL OF [facility]. WEARS HOME OXYGEN AT NOC, 4L PER NC. DENIES NEEDS FOR DISCHARGE, INDEPENDENT WITH ALL ADL'S. Initialized on 10/16/18 10:12 - END OF NOTE Assessment/Plan (1) COPD exacerbation Current Visit: Yes Status: Acute Onset Date: ~10/12/18 Assessment & Plan: Doing much better. Will d/c the aminophylline drip. Likely d/c home tomorrow.on day #5 rocephin IV (completed 3d zithromax IV). 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 Code(s): E11.9 - TYPE 2 DIABETES MELLITUS WITHOUT COMPLICATIONS (3) Morbid obesity Current Visit: Yes Status: Chronic Code(s): E66.01 - MORBID (SEVERE) OBESITY DUE TO EXCESS CALORIES (4) Osteoarthritis Current Visit: Yes Status: Chronic Qualifiers: Osteoarthritis location: unspecified site Osteoarthritis type: unspecified Qualified Code(s): M19.90 - Unspecified osteoarthritis, unspecified site Code(s): M19.90 - UNSPECIFIED OSTEOARTHRITIS, UNSPECIFIED SITE (5) CAD (coronary artery disease) Current Visit: Yes Status: Chronic Qualifiers: Coronary Disease-Associated Artery/Lesion type: [place] artery [place] vs. transplanted heart: [place] heart Associated angina: without angina Qualified Code(s): I25.10 - Atherosclerotic heart disease of [place] coronary artery without angina pectoris Code(s): I25.10 - ATHSCL HEART DISEASE OF [place] CORONARY ARTERY W/O ANG PCTRS (6) Hypothyroid Current Visit: Yes Status: Chronic Qualifiers: Hypothyroidism type: acquired Qualified Code(s): E03.9 - Hypothyroidism, unspecified Code(s): E03.9 - HYPOTHYROIDISM, UNSPECIFIED (7) Hypertension Current Visit: Yes Status: Chronic Qualifiers: Hypertension type: essential hypertension Qualified Code(s): I10 - Essential (primary) hypertension Code(s): I10 - ESSENTIAL (PRIMARY) HYPERTENSION (8) Tremor Current Visit: Yes Status: Chronic Code(s): R25.1 - TREMOR, UNSPECIFIED
[2018-10-16] MEDS: Spiriva 18 Mcg/Cap Inhaler IH SCH (19:31)
[2018-10-16] MEDS: ZOCOR 20MG PO SCH (21:37)
[2018-10-16] MEDS: PLAVIX 75 MG Tablet PO SCH (21:37)
[2018-10-16] MEDS: Ambien 10 MG PO SCH (21:37)
[2018-10-16] MEDS: Lantus Insulin SQ SCH (21:38)
[2018-10-17] MEDS: solu-MEDROL 125 MG IV SCH (06:35)
[2018-10-17] MEDS: Sodium Chloride 0.9% 10 ML FLUSH Syringe IV SCH (06:37)
[2018-10-17 07:13] VITALS: BP 133/71
[2018-10-17] MEDS: Advair Hfa 115/21 Common canister IH SCH (07:21)
[2018-10-17 07:24] VITALS: PULSE 62; O2SAT 90
[2018-10-17] MEDS: NovoLOG Insulin SQ SCH (09:04)
[2018-10-17] MEDS: Abilify 10 MG PO SCH (09:05)
[2018-10-17] MEDS: SYNTHROID 50 MCG PO SCH (09:05)
[2018-10-17] MEDS: MAG-OX 400 PO SCH (09:07)
[2018-10-17] MEDS: NORVASC 5 MG PO SCH (09:07)
[2018-10-17] MEDS: Toprol Xl 50 MG PO SCH (09:07)
[2018-10-17] MEDS: Cymbalta 30 MG Capsule PO SCH (09:07)
[2018-10-17] MEDS: CLARITIN 10 MG PO SCH (09:08)
[2018-10-17] MEDS: Mucinex 600MG ER Tabs PO SCH (09:08)
[2018-10-17] MEDS: LASIX 20 MG PO SCH (09:08)
[2018-10-17] MEDS: ENOXAPARIN SODIUM SQ SCH (09:09)
--- NOTE | 2018-10-17 09:13 | PCM.DS ---
Discharge Summary Date of Admission: 10/12/18 15:11 Admitting Physician: ALFREDITO BELLO Primary Care Provider: ALFREDITO BELLO Allergies Allergies acetaminophen [From Lortab] Allergy (Mild, Verified 09/01/17 06:00) Nausea hydrocodone bitartrate [From Lortab] Allergy (Mild, Verified 09/01/17 06:00) Hospital Summary - Hospital Course Hospital Course: Pt is 73 yo female pt of mine from [facility] with COPD and DM admitted through office with COPD exacerbation, failed OP antibiotics and IM steroids. CXR was stable, non-acute. She was here for several days with some improvement, then one morning was extremely wheezy. RT thought she was worsening with breathing treatments so those were discontinued. She was started on aminophylline drip with improvement. After 48 h that was discontinued and this morning she states her breathing is still "100% better" and she would like to go home. Pt wanted to go home yesterday but we were just stopping her aminophylline drip yesterday. O2 sat still 90% and up during the day (pt typically wears O2 at night). - Vitals & Intake/Output Vital Signs: Vital Signs Temperature 97.9 F 10/17/18 07:12 Pulse Rate 62 10/17/18 07:21 Respiratory Rate 18 10/17/18 07:21 Blood Pressure 133/71 10/17/18 07:12 O2 Sat by Pulse Oximetry 90 L 10/17/18 07:21 Oxygen-Last Documented O2 Percentage 4 Liters = 36% Intake & Output: Intake & Output 10/14/18 10/15/18 10/16/18 10/17/18 11:59 11:59 11:59 11:59 Intake Total 1020 1785 850 882 Output Total 4319 5844 3800 1000 Balance -930 -4065 -2950 -118 Weight 104.8 kg - Lab Result Diagrams: 10/12/18 15:43 10/12/18 15:43 Lab Results-Last 24 Hrs: Accuchecks Date 10/16/18 Date 10/16/18 Date 10/16/18 Time 22:00 Time 16:30 Time 12:00 Accucheck Value: 209 Accucheck Value: 124 Accucheck Value: 264 Lab Results-Last 24 Hours 10/16/18 Range/Units 10:15 Theophylline 9.1 L (10-20) ug/mL Micro Results-Entire Visit: Accuchecks Date 10/16/18 Date 10/16/18 Date 10/16/18 Time 22:00 Time 16:30 Time 12:00 Accucheck Value: 209 Accucheck Value: 124 Accucheck Value: 264 - Procedures and Test Procedures and Tests throughout Hospitalization: Therapy Orders & Screens 10/12/18 15:30 Oxygen NASAL CANNULA 2 lpm Comment: to keep sats >88-93% Respiratory Nebulizer UD Comment: to keep sats >88-93% Diagnosis: Duoneb QID 10/12/18 15:45 Respiratory Therapy Assessment DAILY Comment: 10/12/18 15:50 Peak Expiratory Flow Rate ONCE Comment: Reason For Exam: 10/12/18 15:53 Respiratory MDI UD Comment: SPIRIVA HS 10/12/18 16:53 Smoking Cessation Education ONCE Comment: Diagnosis: copd. MD bahena 2. Smoking Status: Current every day smoker How long have you smoked: 45 Have you smoked in the past 12 months: Yes Approximately how many cigarettes per day: 4-5 ppd Do you dip or chew tobacco: No 10/14/18 22:03 FLUTTER [Flutter Therapy] UD Comment: Diagnosis: copd. type 2. Discharge Exam General Appearance: no apparent distress, obese Neurologic Exam: alert, oriented x 3, cooperative Skin Exam: normal color, warm, dry, No rash Respiratory Exam: diminished breath sounds (good air exchange), wheezing (exp wheezing present throughout), No crackles/rales, No rhonchi Cardiovascular Exam: regular rate/rhythm, normal heart sounds, No murmur Gastrointestinal/Abdomen Exam: soft, normal bowel sounds, No tenderness Extremity Exam: normal inspection, No pedal edema, No swelling Final Diagnosis/Problem List - Final Discharge Diagnosis/Problem (1) COPD exacerbation Current Visit: Yes Status: Acute Onset Date: ~10/12/18 Assessment & Plan: She is feeling better - still wheezing but less than previously. No increased O2 requirement. Would like for her to start Daliresp when she is feeling better. Home on antibiotic (levaquin, as she failed OP augmentin) and steroid - f/u with me in 2 days. Pt to call [facility] and stop levaquin if any increased joint or muscle pain. (2) Diabetes mellitus Current Visit: Yes Status: Chronic (3) Morbid obesity Current Visit: Yes Status: Chronic (4) Osteoarthritis Current Visit: Yes Status: Chronic (5) CAD (coronary artery disease) Current Visit: Yes Status: Chronic (6) Hypothyroid Current Visit: Yes Status: Chronic (7) Hypertension Current Visit: Yes Status: Chronic (8) Tremor Current Visit: Yes Status: Chronic - Discharge Disposition: Home, Self-Care Condition: Stable Prescriptions: New Prednisone 20 mg [Deltasone 20 mg] 20 mg PO DAILY #21 tablet Levofloxacin [Levaquin] 500 mg PO DAILY #10 tablet Guaifenesin 600 mg ER [Mucinex 600MG ER Tabs] 600 mg PO BID PRN #15 tablet PRN Reason: Cough Continue Zolpidem Tartrate [Ambien] 10 mg PO HS Insulin Aspart [NovoLOG Insulin] 18 units SQ TIDWM Alendronate Sodium 70 mg [Fosamax 70 MG] 70 mg PO WEEKLY Metoprolol Succinate 50 mg [Toprol Xl 50 MG] 50 mg PO BID Levothyroxine Sodium 50 Mcg [Synthroid 50 Mcg] 50 mcg PO DAILY Aripiprazole [Abilify] 2 mg PO DAILY Amlodipine Besylate [Norvasc] 2.5 mg PO DAILY Pravastatin Sodium 80 mg PO DAILY Furosemide 20 mg [Lasix 20 mg] 20 mg PO DAILY Duloxetine HCl [Cymbalta] 60 mg PO DAILY Ergocalciferol (Vitamin D2) [Vitamin D] 50,000 unit PO WEEKLY Tiotropium [place] Inhaler [Spiriva 18 Mcg/Cap Inhaler] 2 puff IH DAILY Albuterol Sulfate [Proair Hfa] 1 - 2 puff IH Q4-6HPRN PRN PRN Reason: Shortness Of Breath Melatonin 5 - 10 mg PO HSPRN PRN PRN Reason: Insomnia Cetirizine HCl 10 mg PO DAILY Magnesium 400 mg PO DAILY Albuterol 2.5 mg/3 ml Neb [Proventil 2.5 mg/3 ml Neb] 2.5 mg IH TID Fluticasone/Salmeterol [Advair 250-50 Diskus] 1 puff IH BID Clopidogrel Bisulfate 75 mg [PLAVIX 75 MG Tablet] 75 mg PO HS Nystatin Powder 15 gm [Nystop Powder 15 gm] 15 gm TP BIDPRN PRN PRN Reason: Redness/Irritation Nitroglycerin 0.4 mg Tablet [Nitrostat 0.4 MG Tablet] 0.4 mg SL Q5MIN PRN MR X 3 PRN PRN Reason: Chest Pain Follow up with: ALFREDITO BELLO [Primary Care Provider] - 1 Week QUINN MOTT [NON-STAFF PHY W/O PRIVILEGES] - 11/21/18
== END 2018-10-17 09:50 | disposition home or self-care (01) | DRG 192 ==
LOC: OBSVTOIN 15:11 → MED SURG 15:11
PROVIDERS: ADMIT Family Medicine; ATTEND Family Medicine
DX: J44.1 Chronic obstructive pulmonary disease with (acute) exacerbation (principal); E11.9 Type 2 diabetes mellitus without complications; Z79.4 Long term (current) use of insulin; E66.01 Morbid (severe) obesity due to excess calories; M19.90 Unspecified osteoarthritis, unspecified site; I25.10 Atherosclerotic heart disease of native coronary artery without angina pectoris; E03.9 Hypothyroidism, unspecified; I10 Essential (primary) hypertension; R25.1 Tremor, unspecified; F32.9 Major depressive disorder, single episode, unspecified; K21.9 Gastro-esophageal reflux disease without esophagitis
CPT/HCPCS: 36415; 71046; 80053; 80198; 81001; 82962; 83036; 85025; 94150; 94640; 94667; 94668; 94760; J0280; J0456; J0696; J1650; J2930; J7609; A9270-GY

== ENCOUNTER 2019-07-27 08:20 | Emergency (ER) | payer MEDICARE ==
--- NOTE | 2019-07-27 08:37 | ERPHSYRPT ---
- History of Present Illness Time Seen by Provider: 07/27/19 08:25 Source: patient Exam Limitations: no limitations Patient Subjective Stated Complaint: Pt state "about an hour ago I fell and hurt my right arm and shoulder." Triage Nursing Assessment: Pt presented via ambulance scat 1 and placed in room 6. PT alert and oriented X 3, skin pwd Pt able to speak in clear full sentneces. pt in no apparent respiratory distress. Physician History: Right shoulder and upper arm pain after fall from bed onto the front of her shoulder when she leaned over to turn off her fan. Occurred: this morning Method of Injury: fell Quality: constant, aching Severity of Pain-Max: severe (with movement) Severity of Pain-Current: mild Extremities Pain Location: shoulder: right (front part), arm: right (upper arm) Modifying Factors: Improves With: immobilization, rest. Worsens With: movement Associated Symptoms: none Allergies/Adverse Reactions: acetaminophen [From Lortab] Allergy (Mild, Verified 09/01/17 06:00) Nausea hydrocodone bitartrate [From Lortab] Allergy (Mild, Verified 09/01/17 06:00) Home Medications: Alendronate Sodium 70 mg [Fosamax 70 MG] 70 mg PO WEEKLY 09/01/17 [History ] Amlodipine Besylate [Norvasc] 2.5 mg PO DAILY 09/01/17 [History] Aripiprazole [Abilify] 2 mg PO DAILY 09/01/17 [History] Duloxetine HCl [Cymbalta] 60 mg PO DAILY 09/01/17 [History] Ergocalciferol (Vitamin D2) [Vitamin D] 50,000 unit PO WEEKLY 09/01/17 [History] Furosemide 20 mg [Lasix 20 mg] 20 mg PO DAILY 09/01/17 [History] Insulin Aspart [NovoLOG Insulin] 18 units SQ TIDWM 09/01/17 [History] Levothyroxine Sodium 50 Mcg [Synthroid 50 Mcg] 50 mcg PO DAILY 09/01/17 [ History] Metoprolol Succinate 50 mg [Toprol Xl 50 MG] 50 mg PO BID 09/01/17 [ History] Pravastatin Sodium 80 mg PO DAILY 09/01/17 [History] Tiotropium [place] Inhaler [Spiriva 18 Mcg/Cap Inhaler] 2 puff IH DAILY [History] Zolpidem Tartrate [Ambien] 10 mg PO HS 09/01/17 [History] Albuterol 2.5 mg/3 ml Neb [Proventil 2.5 mg/3 ml Neb] 2.5 mg IH TID [History] Albuterol Sulfate [Proair Hfa] 1 - 2 puff IH Q4-6HPRN PRN 10/12/18 [History] Cetirizine HCl 10 mg PO DAILY 10/12/18 [History] Clopidogrel Bisulfate 75 mg [PLAVIX 75 MG Tablet] 75 mg PO HS 10/12/18 [ History] Fluticasone/Salmeterol [Advair 250-50 Diskus] 1 puff IH BID 10/12/18 [History] Magnesium 400 mg PO DAILY 10/12/18 [History] Melatonin 5 - 10 mg PO HSPRN PRN 10/12/18 [History] Nitroglycerin 0.4 mg Tablet [Nitrostat 0.4 MG Tablet] 0.4 mg SL Q5MIN PRN MR X 3 PRN 10/12/18 [History] Nystatin Powder 15 gm [Nystop Powder 15 gm] 15 gm TP BIDPRN PRN 10/12/18 [ History] Hx Tetanus, Diphtheria Vaccination/Date Given: No Hx Influenza Vaccination/Date Given: Yes Hx Pneumococcal Vaccination/Date Given: No Immunizations Up to Date: Yes - Review of Systems Constitutional: No Fever, No Chills Eyes: No Eye Pain, No Vision Changes Ears, Nose, & Throat: No Nose Pain, No Nose Discharge, No Epistaxis, No Mouth Swelling Respiratory: No Cough, No Dyspnea Cardiac: No Chest Pain, No Edema, No Syncope Abdominal/Gastrointestinal: No Abdominal Pain, No Nausea, No Vomiting, No Diarrhea Genitourinary Symptoms: No Dysuria, No Frequency, No Flank Pain Musculoskeletal: No Back Pain, No Neck Pain Skin: No Rash Neurological: No Dizziness, No Focal Weakness, No Sensory Changes Psychological: No Symptoms Endocrine: No Symptoms Hematologic/Lymphatic: No Easy Bleeding, No Easy Bruising All Other Systems: Reviewed and Negative - Past Medical History Pertinent Past Medical History: Yes Neurological History: Migraines, Peripheral Neuropathy ENT History: No Pertinent History Cardiac History: Coronary Artery Disease, Hypertension, Peripheral Vascular Disease Respiratory History: COPD, Pneumonia Endocrine Medical History: Diabetes Type II, Hypothyroidism Musculoskeletal History: No Pertinent History GI Medical History: No Pertinent History History: No Pertinent History Psycho-Social History: Depression Female Reproductive Disorders: No Pertinent History - Past Surgical History Past Surgical History: Yes Neuro Surgical History: No Pertinent History Cardiac: No Pertinent History, Cardiac Catheterization, Cardiac Stent, Vascular Surgery Respiratory: No Pertinent History Gastrointestinal: No Pertinent History Genitourinary: No Pertinent History Musculoskeletal: Joint Replacement, Orthopedic Surgery Female Surgical History: Section, Hysterectomy Other Surgical History: stent placed to l leg, priti. knee replacement, left femur fx with hdwe placed,right hip repair with hdwe placed - Social History Smoking Status: Former smoker How long have you smoked: 45 Exposure to second hand smoke: No Drug Use: none Patient Lives Alone: No - Female History Hx Now: No - Nursing Vital Signs Nursing Vital Signs: Initial Vital Signs Temperature 97.8 F 07/27/19 08:21 Pulse Rate 94 H 07/27/19 08:21 Respiratory Rate 16 07/27/19 08:21 Blood Pressure 111/62 07/27/19 08:21 O2 Sat by Pulse Oximetry 94 L 07/27/19 08:21 Pain Scale Pain Intensity 4 - Physical Exam General Appearance: no apparent distress, alert Eyes, Ears, Nose, Throat Exam: moist mucous membranes Neck Exam: normal inspection, non-tender, supple, full range of motion, No meningismus, No lymphadenopathy (R) Cardiovascular/Respiratory Exam: chest non-tender, normal breath sounds, regular rate/rhythm, no respiratory distress Abdominal Exam: non-tender, soft, No no organomegaly, No no hernia, No guarding Back Exam: normal inspection, No normal range of motion, No CVA tenderness, No vertebral tenderness Shoulder Exam: bone tenderness (right side only), limited ROM (right side only) , pain (right side only) Elbow/Forearm Exam: normal inspection, non-tender, no evidence of injury, normal ROM Wrist Exam: normal inspection, non-tender, no evidence of injury, normal ROM Hand Exam: normal inspection, non-tender, no evidence of injury, normal ROM DTR - Upper Extremity Exam: tricep (R): 2+, tricep (L): 2+ Neuro/Tendon Exam: normal sensation, normal motor functions, normal tendon functions Mental Status Exam: alert, oriented x 3, cooperative Skin Exam: normal color, warm, dry, No abrasion, No cyanosis, No laceration SpO2 Interpretation: normal SpO2: 94 O2 Delivery: Room Air - Radiology Exams Right Shoulder X-ray Interpretation: Reviewed by me, No Fracture (per radiologist interpretation: Right shoulder done straight some mild osteopenia, moderate a.c. degenerative arthropathy, glenoid process/humeral head degenerative subcortical cysts, and mild multilevel thoracic degenerative spondylosis. No other bony, articular, or soft tissue abnormalities.), Other Ordered Tests: Active Orders 24 hr Category Date Time Status SHOULDER Stat Exams 07/27/19 08:30 Completed - Progress Progress: improved Progress Note: 07/27/19 09:05 Counseled pt/family regarding: diagnosis, need for follow-up, rad results - Departure Departure Disposition: Home Clinical Impression: Right shoulder pain Qualifiers: Chronicity: acute Qualified Code(s): M25.511 - Pain in right shoulder Sprain of right shoulder Qualifiers: Encounter type: initial encounter Shoulder sprain type: unspecified sprain Qualified Code(s): S43.401A - Unspecified sprain of right shoulder joint, initial encounter Degenerative arthritis of right shoulder region Qualifiers: Osteoarthritis type: unspecified Qualified Code(s): M19.011 - Primary osteoarthritis, right shoulder Condition: Good Critical Care Time: No Referrals: ALFREDITO BELLO [Primary Care Provider] - 07/31/19 Instructions: Shoulder Tendinopathy (DC), Shoulder Sprain (DC), Osteoarthritis (DC) Additional Instructions: Your x-rays were read as negative today by the ED physician and radiologist. You did have some degenerative changes in the shoulder at multiple places. Followup with your doctor if pain is still significant on 07/31/2019. Return immediately back to the emergency room if any discoloration to the hand, loss of sensation the hand, loss of function to the hand, worsening pain, or any other new signs and symptoms of pain or injury that were not present at today's emergency department visit for immediate reevaluation in the emergency department. Continue to use your right shoulder and continue to use all range of motion to help prevent stiffness and loss of function to that right shoulder. Prescriptions: Meloxicam 7.5 mg [Mobic 7.5 MG] 7.5 mg PO DAILY PRN #14 tablet PRN Reason: Pain
--- NOTE | 2019-07-27 08:54 | XRAY ---
Indication: Pain following fall. Comparison: None 3 views of the right shoulder demonstrates mild osteopenia, moderate AC degenerative arthropathy, glenoid process/humeral head degenerative subcortical cysts, and mild multilevel thoracic degenerative spondylosis. No other bony, articular, or soft tissue abnormalities.
[2019-07-27 09:17] VITALS: BP 109/63; PULSE 90; O2SAT 98
== END 2019-07-27 09:25 | disposition home or self-care (01) ==
LOC: ED 08:20
DX: M25.511 Pain in right shoulder (principal); M19.011 Primary osteoarthritis, right shoulder; W06.XXXA Fall from bed, initial encounter
CPT/HCPCS: 73030; 99283

== ENCOUNTER 2019-07-28 06:03 | Emergency (ER) | payer MEDICARE ==
[2019-07-28 06:17] VITALS: O2SAT 94
--- NOTE | 2019-07-28 06:35 | ERPHSYRPT ---
- History of Present Illness Time Seen by Provider: 07/28/19 06:20 Source: patient Exam Limitations: no limitations Patient Subjective Stated Complaint: pt states she fell yesterday and came to er. today pt wrist is hurting but was not hurting yesterday after the fall. Triage Nursing Assessment: pt presents in er with redness and swelling on surface of wrist. pt rates pain in wrist at 9/10 Physician History: Left wrist pain after fall yesterday out of bed, which was mainly pain to the right shoulder. No x-ray imaging of the left wrist performed on 07/27/2019. Occurred: yesterday Method of Injury: fell (out of bed) Quality: constant, aching Severity of Pain-Max: moderate Severity of Pain-Current: moderate Extremities Pain Location: wrist: left Modifying Factors: Improves With: immobilization, pain medication. Worsens With : movement Associated Symptoms: No back pain, No chills, No chest discomfort, No chest pain , No dyspnea, No fever, No jaw pain, No nausea, No neck pain, No sweating, No short of breath, No vomiting Allergies/Adverse Reactions: acetaminophen [From Lortab] Allergy (Mild, Verified 07/28/19 06:16) Nausea hydrocodone bitartrate [From Lortab] Allergy (Mild, Verified 07/28/19 06:16) Home Medications: Alendronate Sodium 70 mg [Fosamax 70 MG] 70 mg PO WEEKLY 09/01/17 [History ] Amlodipine Besylate [Norvasc] 2.5 mg PO DAILY 09/01/17 [History] Aripiprazole [Abilify] 2 mg PO DAILY 09/01/17 [History] Duloxetine HCl [Cymbalta] 60 mg PO DAILY 09/01/17 [History] Ergocalciferol (Vitamin D2) [Vitamin D] 50,000 unit PO WEEKLY 09/01/17 [History] Furosemide 20 mg [Lasix 20 mg] 20 mg PO DAILY 09/01/17 [History] Insulin Aspart [NovoLOG Insulin] 18 units SQ TIDWM 09/01/17 [History] Levothyroxine Sodium 50 Mcg [Synthroid 50 Mcg] 50 mcg PO DAILY 09/01/17 [ History] Metoprolol Succinate 50 mg [Toprol Xl 50 MG] 50 mg PO BID 09/01/17 [ History] Pravastatin Sodium 80 mg PO DAILY 09/01/17 [History] Tiotropium [place] Inhaler [Spiriva 18 Mcg/Cap Inhaler] 2 puff IH DAILY [History] Zolpidem Tartrate [Ambien] 10 mg PO HS 09/01/17 [History] Albuterol 2.5 mg/3 ml Neb [Proventil 2.5 mg/3 ml Neb] 2.5 mg IH TID [History] Albuterol Sulfate [Proair Hfa] 1 - 2 puff IH Q4-6HPRN PRN 10/12/18 [History] Cetirizine HCl 10 mg PO DAILY 10/12/18 [History] Clopidogrel Bisulfate 75 mg [PLAVIX 75 MG Tablet] 75 mg PO HS 10/12/18 [ History] Fluticasone/Salmeterol [Advair 250-50 Diskus] 1 puff IH BID 10/12/18 [History] Magnesium 400 mg PO DAILY 10/12/18 [History] Melatonin 5 - 10 mg PO HSPRN PRN 10/12/18 [History] Nitroglycerin 0.4 mg Tablet [Nitrostat 0.4 MG Tablet] 0.4 mg SL Q5MIN PRN MR X 3 PRN 10/12/18 [History] Nystatin Powder 15 gm [Nystop Powder 15 gm] 15 gm TP BIDPRN PRN 10/12/18 [ History] Hx Tetanus, Diphtheria Vaccination/Date Given: No Hx Influenza Vaccination/Date Given: Yes Hx Pneumococcal Vaccination/Date Given: No - Review of Systems Constitutional: No Fever, No Chills Eyes: No Discharge, No Eye Pain Ears, Nose, & Throat: No Ear Pain, No Mouth Pain Respiratory: No Cough, No Dyspnea Cardiac: No Chest Pain, No Edema, No Syncope Abdominal/Gastrointestinal: No Abdominal Pain, No Nausea, No Vomiting Genitourinary Symptoms: No Dysuria, No Flank Pain Musculoskeletal: No Back Pain, No Neck Pain Skin: No Pruritis, No Rash Neurological: No Dizziness, No Focal Weakness, No Sensory Changes Psychological: No Symptoms Endocrine: No Symptoms All Other Systems: Reviewed and Negative - Past Medical History Pertinent Past Medical History: Yes Neurological History: Migraines, Peripheral Neuropathy ENT History: No Pertinent History Cardiac History: Coronary Artery Disease, Hypertension, Peripheral Vascular Disease Respiratory History: COPD, Pneumonia Endocrine Medical History: Diabetes Type II, Hypothyroidism Musculoskeletal History: No Pertinent History GI Medical History: No Pertinent History History: No Pertinent History Psycho-Social History: Depression Female Reproductive Disorders: No Pertinent History - Past Surgical History Past Surgical History: Yes Neuro Surgical History: No Pertinent History Cardiac: No Pertinent History, Cardiac Catheterization, Cardiac Stent, Vascular Surgery Respiratory: No Pertinent History Gastrointestinal: No Pertinent History Genitourinary: No Pertinent History Musculoskeletal: Joint Replacement, Orthopedic Surgery Female Surgical History: Section, Hysterectomy Other Surgical History: stent placed to l leg, priti. knee replacement, left femur fx with hdwe placed,right hip repair with hdwe placed - Social History Smoking Status: Former smoker How long have you smoked: 45 Exposure to second hand smoke: No Drug Use: none Patient Lives Alone: No - Nursing Vital Signs Nursing Vital Signs: Initial Vital Signs Temperature 97.9 F 07/28/19 06:07 Pulse Rate 88 07/28/19 06:07 Respiratory Rate 18 07/28/19 06:07 Blood Pressure 172/80 07/28/19 06:07 O2 Sat by Pulse Oximetry 94 L 07/28/19 06:07 Pain Scale Pain Intensity 9 - Physical Exam General Appearance: no apparent distress, alert Eyes, Ears, Nose, Throat Exam: moist mucous membranes Neck Exam: normal inspection, non-tender, supple Cardiovascular/Respiratory Exam: chest non-tender, normal breath sounds, regular rate/rhythm, no respiratory distress Abdominal Exam: non-tender, No guarding Back Exam: No normal range of motion, No CVA tenderness, No vertebral tenderness Elbow/Forearm Exam: normal inspection, non-tender, no evidence of injury, normal ROM Wrist Exam: bone tenderness (left wist at distal radial styloid), pain (left wist), soft tissue tenderness (left wist), swelling (left wist) Hand Exam: normal inspection, non-tender, no evidence of injury, normal ROM Neuro/Tendon Exam: normal sensation, normal motor functions Mental Status Exam: alert, oriented x 3, cooperative Skin Exam: normal color, warm, dry SpO2 Interpretation: normal SpO2: 94 O2 Delivery: Room Air Procedures - Splinting Location of Splint: Left, Wrist Type of Splint: Other (Orthoglass Reverse sugar tong splint) Splint Applied By: ED Nurse Pre-Proc Neuro Vasc Exam: normal Post-Proc Neuro Vasc Exam: neurovascular intact, unchanged from pre-exam - Course Nursing assessment & vital signs reviewed: Yes - Radiology Exams Left Wrist X-ray Interpretation: Interpreted by me, Reviewed by me, Displaced Fracture ( distal radial metaphyseal fracture with shortening and angulation) Ordered Tests: Active Orders 24 hr Category Date Time Status Sling Application STAT Care 07/28/19 06:51 Ordered Splint STAT Care 07/28/19 06:50 Ordered WRIST (MIN 3 VIEWS) Stat Exams 07/28/19 06:28 Ordered - Progress Progress: improved Counseled pt/family regarding: diagnosis, need for follow-up, rad results - Departure Departure Disposition: Home Clinical Impression: Colles' fracture of left radius, initial encounter for closed fracture Hypertension Qualifiers: Hypertension type: essential hypertension Qualified Code(s): I10 - Essential ( primary) hypertension Condition: Good Critical Care Time: No Referrals: ALFREDITO BELLO [Primary Care Provider] - 07/28/19 Instructions: Wrist Fracture, High Blood Pressure (DC) Additional Instructions: Follow-up with [facility] in [place], [place] in one hour. You have a fracture of your left wrist. It is important to follow-up for definitive therapy by Orthopedic Surgery.
[2019-07-28 07:30] VITALS: BP 158/86; PULSE 74
--- NOTE | 2019-07-28 08:47 | XRAY ---
Indication: Pain following fall. Comparison: None 3 views of the left wrist demonstrates nondisplaced slightly comminuted fracture involving the distal radius with intra-articular extension and soft tissue swelling. Elsewhere osteopenia, mild degenerative changes of all MCP/IP joints, and moderate degenerative changes of the 1st metacarpal multangular articulation.
== END 2019-07-28 07:30 | disposition home or self-care (01) ==
LOC: ED 06:03
DX: S52.532A Colles' fracture of left radius, initial encounter for closed fracture (principal); W08.XXXA Fall from other furniture, initial encounter; Y93.89 Activity, other specified; Y92.003 Bedroom of unspecified non-institutional (private) residence as the place of occurrence of the external cause; Z79.899 Other long term (current) drug therapy; I10 Essential (primary) hypertension; I25.10 Atherosclerotic heart disease of native coronary artery without angina pectoris; I73.9 Peripheral vascular disease, unspecified; J44.9 Chronic obstructive pulmonary disease, unspecified; E11.9 Type 2 diabetes mellitus without complications; Z79.4 Long term (current) use of insulin; E03.9 Hypothyroidism, unspecified; F32.9 Major depressive disorder, single episode, unspecified
CPT/HCPCS: 73110; 99284

== ENCOUNTER 2020-11-22 16:51 | Observation (INO) | payer MEDICARE ==
[2020-11-22] MEDS ORDERED: MORPHINE SULFATE 4 MG INJ IV PRN (17:40)
[2020-11-22] MEDS ORDERED: Zofran 4 MG/2 ML VIAL IV PRN (17:41)
[2020-11-22] MEDS ORDERED: HUMALOG SQ PRN (17:45)
[2020-11-22] MEDS: Sodium Chloride 0.9% 1000 ML 1,000 ML IV SCH (18:22)
[2020-11-22] MEDS ORDERED: Lantus Insulin SQ ONE ×2 (22:00)
[2020-11-22] MEDS ORDERED: Sinemet 25/100 MG PO ONE (22:00)
[2020-11-22] MEDS ORDERED: PLAVIX 75 MG Tablet PO ONE (22:00)
--- NOTE | 2020-11-22 22:11 | XRAY ---
Indication: Left abdomen pain. Constipation. Multiple contiguous axial images obtained through the abdomen and pelvis using 80 cc Isovue 370 contrast. Enteric contrast also used. Comparison: None Lung bases demonstrates minimal bibasilar fibrosis/scarring. No infiltrate or effusion. Heart is enlarged. Contrasted stomach and bowel loops appear nonobstructed. Normal appendix. There is mild scattered colonic fecal debris predominantly in the ascending and transverse colon. Scattered descending and sigmoid diverticulosis. Previous hysterectomy. No free fluid/air. 2 cm left adrenal gland mass, possible adenoma. Both kidneys enhance and excrete without hydronephrosis. Left mid kidney demonstrates 1 cm cyst. Right lower pole demonstrates 8mm cyst. Urinary bladder is significantly distended concerning for outlet obstruction versus neurogenic bladder. Remaining liver, gallbladder, pancreas, spleen, adrenal glands, kidneys, ureters, and bladder are unremarkable. Heavy scattered vascular calcifications. No AAA or pathologic retroperitoneal lymphadenopathy. Osseous structures demonstrates mild osteopenia, mild/moderate multilevel thoracolumbar degenerative spondylosis, remote L1/L2 compression fractures, and old bilateral femur fractures with incompletely visualized orthopedic hardware. Impression: 1. 2 cm left adrenal gland mass, possible adenoma. Noncontrast CT exam could confirm if clinically warranted. 2. Significantly distended urinary bladder. Rule out outlet obstruction versus neurogenic bladder. 3. Incidental cardiomegaly, bilateral renal cysts, colonic diverticulosis, extensive arteriosclerotic disease, and chronic bony findings. Comment: Preliminary interpretation was made by [facility] who does not report incidental distended urinary bladder.
[2020-11-22] MEDS ORDERED: NORVASC 5 MG ONE (22:50)
[2020-11-22] MEDS ORDERED: NORVASC 5 MG PO ONE (22:52)
[2020-11-23 06:20] LABS: Absolute Neutrophil Ct (ANC) 11.11 (1.4-6.9); BASOPHIL % 0.2 % (0.0-0.4); Basophil (Absolute #) 0.03 (0-0.4); Eosinophil % 0.8 % (0.00-5.0); Eosinophil (Absolute #) 0.11 (0-0.5); Hematocrit 38.1 % (35-47); Hemoglobin 11.9 gm/dl (12.0-16.0); Lymphocyte (Absolute #) 1.51 (1.0-4.6); Lymphocytes % 11.1 % (24.0-44.0); Mean Cell Volume 90.9 fl (78-100); Mean Corpuscular Hemoglobin 28.4 pg (26-32); Mean Corpuscular Hgb Concent. 31.2 g/dl (32-36); Mean Platelet Volume 10.7 fl (7.5-11.0); Monocyte (Absolute #) 0.88 (0.0-1.3); Monocytes % 6.5 % (0.0-12.0); Neutrophil % 81.4 % (36.0-66.0); Platelet Count 330 K/mm3 (150-450); Red Blood Count 4.19 M/mm3 (4.1-5.4); Red Cell Distribution Width 13.5 % (11.5-14.0); White Blood Count 13.6 K/mm3 (4.0-10.5)
[2020-11-23 06:28] LABS: ALKALINE PHOSPHATASE 83 U/L (38-126); ANION GAP 9.9 MEQ/L (5-15); BLOOD UREA NITROGEN 14 mg/dL (7-17); CHLORIDE 93 mmol/L (98-107); Calcium 9.1 mg/dL (8.4-10.2); Carbon Dioxide 27 mmol/L (22-30); Creatinine 1 0.72 mg/dL (0.52-1.04); EST GLOMERULAR FILTRATION RATE > 60.0 ML/MIN; Glucose 166 mg/dL (74-106); Potassium 4.5 mmol/L (3.5-5.1); SGOT/AST 23 U/L (14-36); SODIUM 126 mmol/L (137-145); Total Protein 7.2 g/dL (6.3-8.2)
[2020-11-23 06:58] LABS: SGPT/ALT 5 U/L (0-35)
[2020-11-23] MEDS: Sodium Chloride 0.9% 1000 ML 1,000 ML IV SCH ×3 (07:37→20:54)
--- NOTE | 2020-11-23 08:46 | PCM.NOTE ---
Date and Time: 11/23/2044 Subjective Assessment: c/o abdominal pain - Review of Systems Constitutional: No Fever, No Chills Eyes: No Symptoms Ears, Nose, & Throat: No Symptoms Respiratory: No Cough, No Short Of Breath Cardiac: No Chest Pain, No Edema, No Syncope Abdominal/Gastrointestinal: Abdominal Pain, No Nausea, No Vomiting, No Diarrhea Genitourinary Symptoms: No Dysuria Musculoskeletal: No Back Pain, No Neck Pain Skin: No Rash Neurological: No Dizziness, No Focal Weakness, No Sensory Changes Psychological: No Symptoms Endocrine: No Symptoms Hematologic/Lymphatic: No Symptoms Immunological/Allergic: No Symptoms Objective Exam General Appearance: no apparent distress, alert Neurologic Exam: alert, oriented x 3, cooperative, normal mood/affect, nml cerebellar function, sensation nml, No motor deficits Skin Exam: normal color, warm, dry Eye Exam: PERRL, EOMI, eyes nml inspection Ears, Nose, Throat Exam: normal ENT inspection, pharynx normal, moist mucous membranes Neck Exam: normal inspection, non-tender, supple, full range of motion Respiratory Exam: normal breath sounds, lungs clear, No respiratory distress Cardiovascular Exam: regular rate/rhythm, normal heart sounds Gastrointestinal/Abdomen Exam: soft, No tenderness, No mass Extremity Exam: normal inspection, normal range of motion Back Exam: normal inspection, normal range of motion, No CVA tenderness, No vertebral tenderness Pelvic Exam: deferred Rectal Exam: deferred OBJECTIVE DATA Vital Signs: Vital Signs - 24 hr Temp Pulse Resp BP Pulse Ox 11/23/20 08:00 98.5 F 88 18 164/72 95 11/23/20 07:32 98.5 F 92 H 18 164/72 95 11/23/20 04:00 98.3 F 95 H 19 138/91 97 11/23/20 00:00 98.3 F 76 19 144/64 95 11/22/20 20:00 98.3 F 76 19 144/64 95 11/22/20 18:27 98.7 F 106 H 24 186/82 96 11/22/20 17:56 98.7 F 106 H 186/82 96 11/22/20 17:55 98.7 F 106 H 186/82 106 H Pain Assessment - Last Documented Pain Intensity 0 Intake and Output: Intake & Output 11/20/20 11/21/20 11/22/20 11/23/20 11:59 11:59 11:59 11:59 Intake Total 1046 Balance 1046 Weight 118.5 kg Lab Results: Lab Results-Last 24 Hours 11/22/20 11/22/20 11/22/20 Range/Units 14:07 17:36 20:37 WBC (4.0-10.5) K/mm3 RBC (4.1-5.4) M/mm3 Hgb (12.0-16.0) gm/dl Hct (35-47) % MCV (78-100) fl MCH (26-32) pg MCHC (32-36) g/dl RDW (11.5-14.0) % Plt Count (150-450) K/mm3 MPV (7.5-11.0) fl Gran % (36.0-66.0) % Eos # (Auto) (0-0.5) Absolute Lymphs (auto) (1.0-4.6) Absolute Monos (auto) (0.0-1.3) Lymphocytes % (24.0-44.0) % Monocytes % (0.0-12.0) % Eosinophils % (0.00-5.0) % Basophils % (0.0-0.4) % Absolute Granulocytes (1.4-6.9) Basophils # (0-0.4) Sodium (137-145) mmol/L Potassium (3.5-5.1) mmol/L Chloride (98-107) mmol/L Carbon Dioxide (22-30) mmol/L Anion Gap (5-15) MEQ/L BUN (7-17) mg/dL Creatinine (0.52-1.04) mg/dL Estimated GFR ML/MIN Glucose (74-106) mg/dL POC Glucometer 176 H (74 to 106) mg/dL Hemoglobin A1c 6.91 H (4.5-6.0) % Lactic Acid 1.5 (0.4-2.0) Calcium (8.4-10.2) mg/dL Total Bilirubin (0.2-1.3) mg/dL AST (14-36) U/L ALT (0-35) U/L Alkaline Phosphatase (38-126) U/L Serum Total Protein (6.3-8.2) g/dL Albumin (3.5-5.0) g/dL 11/23/20 11/23/20 11/23/20 Range/Units 05:20 05:20 07:19 WBC 13.6 H (4.0-10.5) K/mm3 RBC 4.19 (4.1-5.4) M/mm3 Hgb 11.9 L (12.0-16.0) gm/dl Hct 38.1 (35-47) % MCV 90.9 (78-100) fl MCH 28.4 (26-32) pg MCHC 31.2 L (32-36) g/dl RDW 13.5 (11.5-14.0) % Plt Count 330 (150-450) K/mm3 MPV 10.7 (7.5-11.0) fl Gran % 81.4 H (36.0-66.0) % Eos # (Auto) 0.11 (0-0.5) Absolute Lymphs (auto) 1.51 (1.0-4.6) Absolute Monos (auto) 0.88 (0.0-1.3) Lymphocytes % 11.1 L (24.0-44.0) % Monocytes % 6.5 (0.0-12.0) % Eosinophils % 0.8 (0.00-5.0) % Basophils % 0.2 (0.0-0.4) % Absolute Granulocytes 11.11 H (1.4-6.9) Basophils # 0.03 (0-0.4) Sodium 126 L (137-145) mmol/L Potassium 4.5 (3.5-5.1) mmol/L Chloride 93 L (98-107) mmol/L Carbon Dioxide 27 (22-30) mmol/L Anion Gap 9.9 (5-15) MEQ/L BUN 14 (7-17) mg/dL Creatinine 0.72 (0.52-1.04) mg/dL Estimated GFR > 60.0 ML/MIN Glucose 166 H (74-106) mg/dL POC Glucometer 181 H (74 to 106) mg/dL Hemoglobin A1c (4.5-6.0) % Lactic Acid (0.4-2.0) Calcium 9.1 (8.4-10.2) mg/dL Total Bilirubin 0.90 (0.2-1.3) mg/dL AST 23 (14-36) U/L ALT 5 (0-35) U/L Alkaline Phosphatase 83 (38-126) U/L Serum Total Protein 7.2 (6.3-8.2) g/dL Albumin 4.0 (3.5-5.0) g/dL Radiology Exams: Radiology Procedures Category Date Time Status ABDOMEN AND PELVIS W CONTRAST [CT] Urgent Exams 11/22/20 17:41 Completed Multi-Disciplinary Progress Notes: Multi-Disciplinary Progress Notes 11/22/20 19:36 Respiratory Note by Maria Antonia Vasquez Patient stated that she no longer takes respiratory medications because she didn't need them. Assessed patient: SpO2 96% on room air, HR 98, RR 20, B/S clear and diminished throughout anterior/posterior. Initialized on 11/22/20 19:36 - END OF NOTE
[2020-11-23] MEDS: Flagyl 500 MG PO SCH ×2 (10:25→17:05)
[2020-11-23] MEDS ORDERED: NYSTOP POWDER 15 GM TP PRN ×2 (10:50→11:15)
[2020-11-23] MEDS ORDERED: Nitrostat 0.4 MG Tablet SL PRN (10:50)
[2020-11-23 11:01] LABS: 027 TOX PROD PRESUMPTIVE NEGATIVE (NEGATIVE); TOXIGENIC C. DIFF ORG NEGATIVE (NEGATIVE)
[2020-11-23] MEDS: Abilify 10 MG PO SCH (11:30)
[2020-11-23] MEDS: SYNTHROID 50 MCG PO SCH (11:30)
[2020-11-23] MEDS: LASIX 20 MG PO SCH (11:30)
[2020-11-23] MEDS: ECOTRIN 81 MG PO SCH (11:30)
[2020-11-23] MEDS: Paxil 20 MG PO SCH (11:30)
[2020-11-23] MEDS: Sinemet 25/100 MG PO SCH ×3 (11:32→21:00)
[2020-11-23] MEDS: PLAVIX 75 MG Tablet PO SCH ×2 (11:36→20:59)
[2020-11-23] MEDS ORDERED: Lomotil PO ONE (11:40)
[2020-11-23] MEDS: HUMALOG SQ SCH ×3 (11:41→17:34)
[2020-11-23] MEDS ORDERED: INSULIN ASPART 18 UNIT SQ SCH (12:00)
[2020-11-23] MEDS ORDERED: ZOCOR 20MG PO SCH (22:00)
[2020-11-23] MEDS ORDERED: NORVASC 5 MG PO SCH (22:00)
[2020-11-23] MEDS ORDERED: Lantus Insulin SQ SCH (22:00)
[2020-11-23] MEDS ORDERED: INSULIN GLARGINE HUM REC ANLOG 15 UNIT SQ SCH (22:00)
[2020-11-24] MEDS: Flagyl 500 MG PO SCH ×2 (02:06→09:17)
[2020-11-24 05:53] LABS: Absolute Neutrophil Ct (ANC) 14.01 (1.4-6.9); BASOPHIL % 0.2 % (0.0-0.4); Basophil (Absolute #) 0.03 (0-0.4); Eosinophil % 0.4 % (0.00-5.0); Eosinophil (Absolute #) 0.06 (0-0.5); Hematocrit 34.6 % (35-47); Hemoglobin 10.7 gm/dl (12.0-16.0); Lymphocyte (Absolute #) 1.23 (1.0-4.6); Lymphocytes % 7.6 % (24.0-44.0); Mean Cell Volume 92.8 fl (78-100); Mean Corpuscular Hemoglobin 28.7 pg (26-32); Mean Corpuscular Hgb Concent. 30.9 g/dl (32-36); Mean Platelet Volume 10.8 fl (7.5-11.0); Monocyte (Absolute #) 0.89 (0.0-1.3); Monocytes % 5.5 % (0.0-12.0); Neutrophil % 86.3 % (36.0-66.0); Platelet Count 299 K/mm3 (150-450); Red Blood Count 3.73 M/mm3 (4.1-5.4); Red Cell Distribution Width 13.8 % (11.5-14.0); White Blood Count 16.2 K/mm3 (4.0-10.5)
[2020-11-24] MEDS ORDERED: Fosamax 70 MG PO SCH (06:00)
[2020-11-24 06:16] LABS: ALBUMIN 3.4 g/dL (3.5-5.0); ALKALINE PHOSPHATASE 75 U/L (38-126); ANION GAP 9.9 MEQ/L (5-15); BLOOD UREA NITROGEN 15 mg/dL (7-17); CHLORIDE 100 mmol/L (98-107); Calcium 8.8 mg/dL (8.4-10.2); Carbon Dioxide 25 mmol/L (22-30); Creatinine 1 0.75 mg/dL (0.52-1.04); EST GLOMERULAR FILTRATION RATE > 60.0 ML/MIN; Glucose 203 mg/dL (74-106); Potassium 4.4 mmol/L (3.5-5.1); SGOT/AST 19 U/L (14-36); SODIUM 130 mmol/L (137-145); Total Protein 6.3 g/dL (6.3-8.2)
[2020-11-24 06:17] LABS: SGPT/ALT 4 U/L (0-35)
[2020-11-24] MEDS: HUMALOG SQ SCH ×2 (08:21→12:02)
[2020-11-24] MEDS: Abilify 10 MG PO SCH (09:17)
[2020-11-24] MEDS: SYNTHROID 50 MCG PO SCH (09:17)
[2020-11-24] MEDS: Sinemet 25/100 MG PO SCH (09:17)
[2020-11-24] MEDS: ECOTRIN 81 MG PO SCH (09:18)
[2020-11-24] MEDS: LASIX 20 MG PO SCH (09:18)
[2020-11-24] MEDS: Paxil 20 MG PO SCH (09:18)
[2020-11-24] MEDS ORDERED: VITAMIN D2 PO SCH (10:00)
[2020-11-24] MEDS ORDERED: NON-FORMULARY ITEM (Pravastatin Sodium [Pravastatin Sodium] 80 MG) PO SCH (10:00)
[2020-11-24] MEDS ORDERED: NON-FORMULARY ITEM (Paroxetine Hcl [Paroxetine Hcl] 40 MG) PO SCH (10:00)
[2020-11-24 11:38] VITALS: BP 154/68; PULSE 82; O2SAT 95
--- NOTE | 2020-11-24 11:42 | PCM.DS ---
Discharge Summary Date of Admission: 11/22/20 17:33 Admitting Physician: ALFREDITO RICHTER Primary Care Provider: ALFREDITO RICHTER Allergies Allergies acetaminophen [From Lortab] Allergy (Mild, Verified 07/28/19 06:16) Nausea hydrocodone bitartrate [From Lortab] Allergy (Mild, Verified 07/28/19 06:16) Hospital Summary - Hospital Course Hospital Course: Chief Complaint Diagnosis Abdominal pain Allergies Allergy/AdvReac Type Severity Reaction Status Date / Time acetaminophen [From Lortab] Allergy Mild Nausea Verified 07/28/19 06:16 hydrocodone bitartrate Allergy Mild Verified 07/28/19 06:16 [From Lortab] Vital Signs (Last 24 hours) Temp Pulse Resp BP Pulse Ox 11/24/20 11:37 97.6 F 82 16 154/68 95 11/24/20 07:57 98.6 F 66 16 168/72 94 L 11/24/20 04:00 98.7 F 95 H 12 146/65 94 L 11/23/20 23:55 99.1 F 90 16 149/64 96 11/23/20 19:54 98.2 F 79 23 132/63 95 11/23/20 16:00 98.5 F 79 17 144/65 95 Home Medications Medication Instructions Recorded Confirmed Last Taken Type Amlodipine Besylate 5 mg 10 mg PO QHS 11/22/20 11/22/20 11/22/20 08:30 History [Norvasc 5 mg] Aripiprazole 10 mg [Abilify 10 10 mg PO DAILY 11/22/20 11/22/20 11/21/20 09:00 History MG] Aspirin EC 81 mg [Ecotrin 81 81 mg PO DAILY 11/22/20 11/22/20 11/22/20 08:30 History mg] Carbidopa/Levodopa [Carbidopa-Levo 1.5 each PO TID 11/22/20 11/22/20 11/22/20 15:00 History 25-100 Tab] Insulin Glargine,Hum.rec.anlog 15 unit SQ HS 11/22/20 11/22/20 11/21/20 22:30 History [Lantus Solostar] PARoxetine HCL [Paroxetine HCl] 40 mg PO DAILY 11/22/20 11/22/20 11/22/20 08:30 History Current Medications Generic Name Dose Route Start Last Admin Trade Name Freq PRN Reason Stop Dose Admin Alendronate Sodium 70 mg 11/24/20 06:00 Fosamax 70 Mg PO 12/24/20 05:59 WEEKLY MICHAELA Amlodipine Besylate 10 mg 11/23/20 22:00 11/23/20 20:59 Norvasc 5 Mg PO 12/23/20 21:59 10 mg QHS MICHAELA Administration Aripiprazole 10 mg 11/23/20 10:00 11/24/20 09:17 Abilify 10 Mg PO 12/23/20 09:59 10 mg DAILY MICHAELA Administration Aspirin 81 mg 11/23/20 10:00 11/24/20 09:18 Ecotrin 81 Mg PO 12/23/20 09:59 81 mg DAILY MICHAELA Administration Carbidopa/Levodopa 1.5 tab 11/23/20 11:00 11/24/20 09:17 Sinemet 25/100 Mg PO 12/23/20 10:59 1.5 tab TID MICHAELA Administration Clopidogrel Bisulfate 75 mg 11/23/20 11:00 11/23/20 20:59 Plavix 75 Mg Tablet PO 12/23/20 10:59 75 mg HS MICHAELA Administration Ergocalciferol 50,000 unit 11/24/20 10:00 Vitamin D2 PO 12/24/20 09:59 WEEKLY MICHAELA Furosemide 20 mg 11/23/20 10:00 11/24/20 09:18 Lasix 20 Mg PO 12/23/20 09:59 20 mg DAILY MICHAELA Administration Sodium Chloride 1,000 mls @ 80 mls/hr 11/22/20 17:45 11/23/20 20:54 Sodium Chloride 0.9% 1000 Ml IV 12/22/20 17:44 80 mls/hr .[id number] MICHAELA Administration Insulin Glargine 15 unit 11/23/20 22:00 11/23/20 20:59 Lantus Insulin SQ 12/23/20 21:59 Not Given HS MICHAELA Insulin Human Lispro 0 unit 11/22/20 17:45 Humalog SQ 12/22/20 17:44 UD PRN Insulin Human Lispro 18 unit 11/23/20 12:00 11/24/20 08:21 Humalog SQ 12/23/20 11:59 18 unit TIDWM MICHAELA Administration Levothyroxine Sodium 50 mcg 11/23/20 11:15 11/24/20 09:17 Synthroid 50 Mcg PO 12/23/20 11:14 50 mcg DAILY MICHAELA Administration Metronidazole 500 mg 11/23/20 10:00 11/24/20 09:17 Flagyl 500 Mg PO 12/23/20 09:59 500 mg Q8H MICHAELA Administration Morphine Sulfate 4 mg 11/22/20 17:40 Morphine Sulfate 4 Mg Inj IV 11/27/20 17:39 Q4H PRN PRN PAIN Nitroglycerin 0.4 mg 11/23/20 10:50 Nitrostat 0.4 Mg Tablet SL 12/23/20 10:49 Q5MIN PRN MR X 3 PRN CHEST PAIN Nystatin 1 gm 11/23/20 11:15 11/23/20 21:36 Nystop Powder 15 Gm TP 12/23/20 10:49 1 gm BIDPRN PRN Administration REDNESS/IRRITATION Ondansetron HCl 4 mg 11/22/20 17:41 Zofran 4 Mg/2 Ml Vial IV 12/22/20 17:40 Q4H PRN PRN Paroxetine HCl 40 mg 11/23/20 10:00 11/24/20 09:18 Paxil 20 Mg PO 12/23/20 09:59 40 mg DAILY MICHAELA Administration Simvastatin 40 mg 11/23/20 22:00 11/23/20 20:59 Zocor 20mg PO 12/23/20 21:59 40 mg HS MICHAELA Administration Discontinued Medications Generic Name Dose Route Start Last Admin Trade Name Freq PRN Reason Stop Dose Admin Amlodipine Besylate Confirm 11/22/20 22:50 Norvasc 5 Mg Administered 11/22/20 22:51 Dose 10 mg .ROUTE .STK-MED ONE Amlodipine Besylate 10 mg 11/22/20 22:52 11/22/20 22:52 Norvasc 5 Mg PO 11/22/20 22:53 10 mg ONCE ONE Administration Carbidopa/Levodopa 1.5 tab 11/22/20 22:00 11/22/20 22:40 Sinemet 25/100 Mg PO 11/22/20 22:01 1.5 tab ONCE ONE Administration Clopidogrel Bisulfate 75 mg 11/22/20 22:00 11/22/20 22:40 Plavix 75 Mg Tablet PO 11/22/20 22:01 75 mg ONCE ONE Administration Diphenoxylate HCl/Atropine 2 tablet 11/23/20 11:40 11/23/20 11:46 Lomotil PO 11/23/20 11:41 2 tablet STAT ONE Administration Insulin Glargine 100 unit 11/22/20 22:00 11/22/20 23:09 Lantus Insulin SQ 11/22/20 22:01 Not Given ONCE ONE Insulin Glargine 15 unit 11/22/20 22:00 11/22/20 22:40 Lantus Insulin SQ 11/22/20 22:01 15 unit ONCE ONE Administration Nystatin 15 gm 11/23/20 10:50 Nystop Powder 15 Gm TP 12/23/20 10:49 BIDPRN PRN REDNESS/IRRITATION Intake & Output (Last 24 hours) 11/21/20 11/22/20 11/23/20 11/24/20 11:59 11:59 11:59 11:59 Intake Total 1526 2909 Output Total 300 2200 Balance 1226 709 Weight 118.5 kg Laboratory Results (Last 24 hours) 11/24/20 11/24/20 11/23/20 05:22 05:22 20:57 WBC 16.2 H RBC 3.73 L Hgb 10.7 L Hct 34.6 L MCV 92.8 MCH 28.7 MCHC 30.9 L RDW 13.8 Plt Count 299 MPV 10.8 Gran % 86.3 H Eos # (Auto) 0.06 Absolute Lymphs (auto) 1.23 Absolute Monos (auto) 0.89 Lymphocytes % 7.6 L Monocytes % 5.5 Eosinophils % 0.4 Basophils % 0.2 Absolute Granulocytes 14.01 H Basophils # 0.03 Sodium 130 L Potassium 4.4 Chloride 100 Carbon Dioxide 25 Anion Gap 9.9 BUN 15 Creatinine 0.75 Estimated GFR > 60.0 Glucose 203 H POC Glucometer 95 Calcium 8.8 Total Bilirubin 0.70 AST 19 ALT 4 Alkaline Phosphatase 75 Serum Total Protein 6.3 Albumin 3.4 L 11/23/20 11/23/20 20:18 15:54 WBC RBC Hgb Hct MCV MCH MCHC RDW Plt Count MPV Gran % Eos # (Auto) Absolute Lymphs (auto) Absolute Monos (auto) Lymphocytes % Monocytes % Eosinophils % Basophils % Absolute Granulocytes Basophils # Sodium Potassium Chloride Carbon Dioxide Anion Gap BUN Creatinine Estimated GFR Glucose POC Glucometer 59 L 92 Calcium Total Bilirubin AST ALT Alkaline Phosphatase Serum Total Protein Albumin Orders (Last 24 hours) Category Date Time Status CBC W DIFF AM.LAB Lab 11/24/20 05:22 Completed CMP AM.LAB Lab 11/24/20 05:22 Completed POCT GLUCOSE Stat Lab 11/23/20 11:14 Completed POCT GLUCOSE Stat Lab 11/23/20 15:54 Completed POCT GLUCOSE Stat Lab 11/23/20 20:18 Completed POCT GLUCOSE Stat Lab 11/23/20 20:57 Completed Alendronate Sodium 70 mg [Fosamax 70 MG] Med 11/24/20 06:00 Active 70 mg PO WEEKLY Amlodipine Besylate 5 mg [Norvasc 5 mg] Med 11/23/20 22:00 Active 10 mg PO QHS Carbidopa/Levodopa 25/100 mg [Sinemet 25/100 MG] Med 11/23/20 11:00 Active 1.5 tab PO TID Clopidogrel Bisulfate 75 mg [PLAVIX 75 MG Tablet] Med 11/23/20 11:00 Active 75 mg PO HS Diphenoxylate HCl/Atropine [Lomotil] Med 11/23/20 11:40 Discontinued 2 tablet PO STAT ONE Ergocalciferol (Vitamin D2) [Vitamin D2] Med 11/24/20 10:00 Active 50,000 unit PO WEEKLY Insulin Glargine [Lantus Insulin] Med 11/23/20 22:00 Active 15 unit SQ HS Insulin Lispro [Humalog] Med 11/23/20 12:00 Active 18 unit SQ TIDWM Levothyroxine Sodium 50 Mcg [Synthroid 50 Mcg] Med 11/23/20 11:15 Active 50 mcg PO DAILY Nitroglycerin 0.4 mg Tablet [Nitrostat 0.4 MG Tablet Med 11/23/20 10:50 Active ] 0.4 mg SL Q5MIN PRN MR X 3 PRN Nystatin Powder 15 gm [Nystop Powder 15 gm] Med 11/23/20 11:15 Active 1 gm TP BIDPRN PRN Nystatin Powder 15 gm [Nystop Powder 15 gm] Med 11/23/20 10:50 Discontinued 15 gm TP BIDPRN PRN Simvastatin 20Mg [Zocor 20Mg] Med 11/23/20 22:00 Active 40 mg PO HS - Vitals & Intake/Output Vital Signs: Vital Signs Temperature 97.6 F 11/24/20 11:37 Pulse Rate 82 11/24/20 11:37 Respiratory Rate 16 11/24/20 11:37 Blood Pressure 154/68 11/24/20 11:37 O2 Sat by Pulse Oximetry 95 11/24/20 11:37 Intake & Output: Intake & Output 11/21/20 11/22/20 11/23/20 11/24/20 11:59 11:59 11:59 11:59 Intake Total 1526 2909 Output Total 300 2200 Balance 1226 709 Weight 118.5 kg - Lab Result Diagrams: 11/24/20 05:22 11/24/20 05:22 Lab Results-Last 24 Hrs: Lab Results-Last 24 Hours 11/23/20 11/23/20 11/23/20 Range/Units 15:54 20:18 20:57 WBC (4.0-10.5) K/mm3 RBC (4.1-5.4) M/mm3 Hgb (12.0-16.0) gm/dl Hct (35-47) % MCV (78-100) fl MCH (26-32) pg MCHC (32-36) g/dl RDW (11.5-14.0) % Plt Count (150-450) K/mm3 MPV (7.5-11.0) fl Gran % (36.0-66.0) % Eos # (Auto) (0-0.5) Absolute Lymphs (auto) (1.0-4.6) Absolute Monos (auto) (0.0-1.3) Lymphocytes % (24.0-44.0) % Monocytes % (0.0-12.0) % Eosinophils % (0.00-5.0) % Basophils % (0.0-0.4) % Absolute Granulocytes (1.4-6.9) Basophils # (0-0.4) Sodium (137-145) mmol/L Potassium (3.5-5.1) mmol/L Chloride (98-107) mmol/L Carbon Dioxide (22-30) mmol/L Anion Gap (5-15) MEQ/L BUN (7-17) mg/dL Creatinine (0.52-1.04) mg/dL Estimated GFR ML/MIN Glucose (74-106) mg/dL POC Glucometer 92 59 L 95 (74 to 106) mg/dL Calcium (8.4-10.2) mg/dL Total Bilirubin (0.2-1.3) mg/dL AST (14-36) U/L ALT (0-35) U/L Alkaline Phosphatase (38-126) U/L Serum Total Protein (6.3-8.2) g/dL Albumin (3.5-5.0) g/dL 11/24/20 11/24/20 Range/Units 05:22 05:22 WBC 16.2 H (4.0-10.5) K/mm3 RBC 3.73 L (4.1-5.4) M/mm3 Hgb 10.7 L (12.0-16.0) gm/dl Hct 34.6 L (35-47) % MCV 92.8 (78-100) fl MCH 28.7 (26-32) pg MCHC 30.9 L (32-36) g/dl RDW 13.8 (11.5-14.0) % Plt Count 299 (150-450) K/mm3 MPV 10.8 (7.5-11.0) fl Gran % 86.3 H (36.0-66.0) % Eos # (Auto) 0.06 (0-0.5) Absolute Lymphs (auto) 1.23 (1.0-4.6) Absolute Monos (auto) 0.89 (0.0-1.3) Lymphocytes % 7.6 L (24.0-44.0) % Monocytes % 5.5 (0.0-12.0) % Eosinophils % 0.4 (0.00-5.0) % Basophils % 0.2 (0.0-0.4) % Absolute Granulocytes 14.01 H (1.4-6.9) Basophils # 0.03 (0-0.4) Sodium 130 L (137-145) mmol/L Potassium 4.4 (3.5-5.1) mmol/L Chloride 100 (98-107) mmol/L Carbon Dioxide 25 (22-30) mmol/L Anion Gap 9.9 (5-15) MEQ/L BUN 15 (7-17) mg/dL Creatinine 0.75 (0.52-1.04) mg/dL Estimated GFR > 60.0 ML/MIN Glucose 203 H (74-106) mg/dL POC Glucometer (74 to 106) mg/dL Calcium 8.8 (8.4-10.2) mg/dL Total Bilirubin 0.70 (0.2-1.3) mg/dL AST 19 (14-36) U/L ALT 4 (0-35) U/L Alkaline Phosphatase 75 (38-126) U/L Serum Total Protein 6.3 (6.3-8.2) g/dL Albumin 3.4 L (3.5-5.0) g/dL Micro Results-Entire Visit: Accuchecks Date 11/24/20 Date 11/23/20 Date 11/23/20 Time 07:58 Time 22:00 Time 16:34 - Radiology Exams Ordered Rad Exams-Entire Visit: Radiology Procedures Category Date Time Status ABDOMEN AND PELVIS W CONTRAST [CT] Urgent Exams 11/22/20 17:41 Completed - Procedures and Test Procedures and Tests throughout Hospitalization: Therapy Orders & Screens 11/22/20 18:45 RT Screen per Nursing Assess ONCE Comment: Protocol Order Physician Instructions: Greater than 3 points order RT Admission Screen Reason For Exam: Triggered on Admission Diagnosis: Abdominal pain Diagnosis: Abdominal pain Pneumonia: Yes Home O2: No Asthma: No CHF: Yes Home CPAP/BIPAP: No Home Nebs/MDI: No Total Points: 6 Discharge Exam General Appearance: no apparent distress, alert Neurologic Exam: alert, oriented x 3, cooperative, normal mood/affect, nml cerebellar function, sensation nml, No motor deficits Eye Exam: PERRL, EOMI, eyes nml inspection Ears, Nose, Throat Exam: normal ENT inspection, pharynx normal, moist mucous membranes Neck Exam: normal inspection, non-tender, supple, full range of motion Respiratory Exam: normal breath sounds, lungs clear, No respiratory distress Cardiovascular Exam: regular rate/rhythm, normal heart sounds Gastrointestinal/Abdomen Exam: soft, No tenderness, No mass Pelvic Exam: deferred Rectal Exam: deferred Back Exam: normal inspection, normal range of motion, No CVA tenderness, No vertebral tenderness Extremity Exam: normal inspection, normal range of motion Skin Exam: normal color, warm, dry Final Diagnosis/Problem List - Final Discharge Diagnosis/Problem (1) Colitis Current Visit: Yes Status: Acute Code(s): K52.9 - NONINFECTIVE G ASTROENTERITIS AND COLITIS, UNSPECIFIED (2) Abdominal pain Current Visit: Yes Status: Acute Code(s): R10.9 - UNSPECIFIED ABDOMINAL PAIN (3) Diabetes mellitus Current Visit: No Status: Chronic Code(s): E11.9 - TYPE 2 DIABETES MELLITUS WITHOUT COMPLICATIONS - Discharge Disposition: Home, Self-Care Condition: Stable Prescriptions: Continue Insulin Aspart [NovoLOG Insulin] 18 units SQ TIDWM Alendronate Sodium 70 mg [Fosamax 70 MG] 70 mg PO WEEKLY Levothyroxine Sodium 50 Mcg [Synthroid 50 Mcg] 50 mcg PO DAILY Pravastatin Sodium 80 mg PO DAILY Furosemide 20 mg [Lasix 20 mg] 20 mg PO DAILY Ergocalciferol (Vitamin D2) [Vitamin D] 50,000 unit PO WEEKLY Clopidogrel Bisulfate 75 mg [PLAVIX 75 MG Tablet] 75 mg PO HS Nystatin Powder 15 gm [Nystop Powder 15 gm] 15 gm TP BIDPRN PRN PRN Reason: Redness/Irritation Nitroglycerin 0.4 mg Tablet [Nitrostat 0.4 MG Tablet] 0.4 mg SL Q5MIN PRN MR X 3 PRN PRN Reason: Chest Pain Aspirin EC 81 mg [Ecotrin 81 mg] 81 mg PO DAILY Insulin Glargine,Hum.rec.anlog [Lantus Solostar] 15 unit SQ HS Carbidopa/Levodopa [Carbidopa-Levo 25-100 Tab] 1.5 each PO TID Amlodipine Besylate 5 mg [Norvasc 5 mg] 10 mg PO QHS Aripiprazole 10 mg [Abilify 10 MG] 10 mg PO DAILY PARoxetine HCL [Paroxetine HCl] 40 mg PO DAILY Instructions: Colitis Follow up with: ALFREDITO RICHTER [Primary Care Provider] - Call for Appointment
== END 2020-11-24 13:00 | disposition home or self-care (01) ==
LOC: MED SURG 17:33
PROVIDERS: ADMIT Family Medicine; ATTEND Family Medicine
DX: K52.9 Noninfective gastroenteritis and colitis, unspecified (principal); R10.9 Unspecified abdominal pain; E11.9 Type 2 diabetes mellitus without complications; Z79.899 Other long term (current) drug therapy; Z79.01 Long term (current) use of anticoagulants; I10 Essential (primary) hypertension; E03.9 Hypothyroidism, unspecified; Z79.4 Long term (current) use of insulin; J44.9 Chronic obstructive pulmonary disease, unspecified
CPT/HCPCS: 36415; 74021; 74177; 80053; 81001; 82150; 82947; 83036; 83605; 83690; 85025; 87493; 99214; G0378; 0097U; J1817; A9270-GY

== ENCOUNTER 2020-12-08 10:17 | Emergency (ER) | payer MEDICARE ==
[2020-12-08 10:53] LABS: A-aADO2 102; ABG POTASSIUM 3.6 (3.5-5.1); ABG SITE RIGHT BRACHIAL; ARTERIAL BLD GAS O2 SATURATION 98.4 % (95-100); ARTERIAL BLOOD GAS FIO2 36 %; ARTERIAL BLOOD GAS PCO2 43 mmHg (35-45); ARTERIAL BLOOD GAS PO2 101 mmHg (75-100); ARTERIAL BLOOD GAS pH 7.46 (7.35-7.45); CARBOXYHEMOGLOBIN 1.9 % THgb (0.0-6.9); HCO3- 30.6 (22-28); HGB O2 SAT 95.7 g/dF (94-100); Lactic Acid 0.9 (0.4-2.0); Methhemoglobin 0.8 % (1.4-1.5)
[2020-12-08 11:06] LABS: Absolute Neutrophil Ct (ANC) 7.89 (1.4-6.9); BASOPHIL % 0.1 % (0.0-0.4); Basophil (Absolute #) 0.01 (0-0.4); Eosinophil % 0.1 % (0.00-5.0); Eosinophil (Absolute #) 0.01 (0-0.5); Hematocrit 33.3 % (35-47); Hemoglobin 10.4 gm/dl (12.0-16.0); Lymphocyte (Absolute #) 0.73 (1.0-4.6); Mean Cell Volume 90.2 fl (78-100); Mean Corpuscular Hemoglobin 28.2 pg (26-32); Mean Corpuscular Hgb Concent. 31.2 g/dl (32-36); Monocyte (Absolute #) 0.48 (0.0-1.3); Monocytes % 5.3 % (0.0-12.0); Neutrophil % 86.5 % (36.0-66.0); Platelet Count 334 K/mm3 (150-450); Red Blood Count 3.69 M/mm3 (4.1-5.4); Red Cell Distribution Width 13.8 % (11.5-14.0); White Blood Count 9.1 K/mm3 (4.0-10.5)
[2020-12-08] MEDS ORDERED: DUONEB 0.5-3 MG/3 ml Neb IH ONE ×3 (11:16→13:48)
[2020-12-08 11:25] LABS: ALBUMIN 3.6 g/dL (3.5-5.0); ALKALINE PHOSPHATASE 66 U/L (38-126); ANION GAP 9.9 MEQ/L (5-15); BLOOD UREA NITROGEN 15 mg/dL (7-17); CHLORIDE 88 mmol/L (98-107); Calcium 8.7 mg/dL (8.4-10.2); Carbon Dioxide 31 mmol/L (22-30); Creatinine 1 0.74 mg/dL (0.52-1.04); EST GLOMERULAR FILTRATION RATE > 60.0 ML/MIN; Glucose 110 mg/dL (74-106); MAGNESIUM 1.7 mg/dL (1.6-2.3); NT PRO BNP 2020 pg/mL (0-900); Potassium 3.6 mmol/L (3.5-5.1); SGOT/AST 23 U/L (14-36); SODIUM 126 mmol/L (137-145); Total Protein 6.8 g/dL (6.3-8.2)
[2020-12-08] MEDS ORDERED: ROCEPHIN 1 Gm-D5w 50 ml Bag** 1 G/50 ML IVPB IV STA (11:36)
[2020-12-08] MEDS ORDERED: Zithromax 500 MG/ 250 ML NaCl Premix 500 MG/250 ML IVPB IV STA (11:36)
[2020-12-08] MEDS ORDERED: ROCEPHIN 1 Gm-D5w 50 ml Bag** 1 G/50 ML IVPB IV ONE (11:42)
[2020-12-08 11:48] LABS: SGPT/ALT 4 U/L (0-35)
[2020-12-08] MEDS ORDERED: BABY ASPIRIN 81 MG CHEW PO ONE (11:54)
[2020-12-08] MEDS ORDERED: Lasix 40 MG/4 ML IV ONE ×2 (12:09→13:56)
[2020-12-08] MEDS ORDERED: Zithromax 500 MG/ 250 ML NaCl Premix 500 MG/250 ML IVPB IV ONE (12:17)
--- NOTE | 2020-12-08 12:31 | ERPHSYRPT ---
- History of Present Illness Time Seen by Provider: 12/08/20 10:28 Source: patient, EMS Exam Limitations: no limitations Patient Subjective Stated Complaint: pt here for increase sob for 2 days now with cough, no fever Triage Nursing Assessment: pt alert, arrived per ambulance, face mask applied in er, audible wheezes heard, resp labored with movment. o2 at 4 lnc,skin w/d/p. slight edema to lower legs Physician History: 75 years old female with multiple medical problems including coronary artery disease status post stenting, congestive heart failure, COPD, hypertension, hyperlipidemia, diabetes mellitus, hypothyroidism presented in the ER with chief complaint of respiratory distress. Patient reports she was having gradually worsening cough and shortness of breath for the last 2 days. Cough is productive of clear to yellow sputum and last night it got worse. This morning she was getting short of breath with minimal activity and even at resting. On EMS arrival oxygen saturation was 87% on room air. She is given DuoNeb and steroid, placed on 4 L oxygen and her saturation is improving currently around 9 5% and her work of breathing is also improved. Patient also report generalized chest tightness and pressure. She denies any increased swelling in lower extremities than usual. No fever or chills reported. Denies any sick contact. Timing/Duration: day(s) (2), gradual onset, worse Activities at Onset: rest Severity of Dyspnea-Max: severe Severity of Dyspnea-Current: moderate Modifying Factors: Improves With: albuterol nebulizer, oxygen. Worsens With: activity, coughing, deep breath, exertion Associated Symptoms: cough, chest pain/discomfort, edema, wheezing, productive cough, tightness, No fever, No calf pain Allergies/Adverse Reactions: acetaminophen [From Lortab] Allergy (Mild, Verified 12/08/20 10:23) Nausea hydrocodone bitartrate [From Lortab] Allergy (Mild, Verified 12/08/20 10:23) Home Medications: Alendronate Sodium 70 mg [Fosamax 70 MG] 70 mg PO WEEKLY 09/01/17 [History] Ergocalciferol (Vitamin D2) [Vitamin D] 50,000 unit PO WEEKLY 09/01/17 [History] Furosemide 20 mg [Lasix 20 mg] 20 mg PO DAILY 09/01/17 [History] Insulin Aspart [NovoLOG Insulin] 18 units SQ TIDWM 09/01/17 [History] Levothyroxine Sodium 50 Mcg [Synthroid 50 Mcg] 50 mcg PO DAILY 09/01/17 [History] Pravastatin Sodium 80 mg PO DAILY 09/01/17 [History] Clopidogrel Bisulfate 75 mg [PLAVIX 75 MG Tablet] 75 mg PO HS 10/12/18 [History] Nitroglycerin 0.4 mg Tablet [Nitrostat 0.4 MG Tablet] 0.4 mg SL Q5MIN PRN MR X 3 PRN 10/12/18 [History] Nystatin Powder 15 gm [Nystop Powder 15 gm] 15 gm TP BIDPRN PRN 10/12/18 [History] Amlodipine Besylate 5 mg [Norvasc 5 mg] 10 mg PO QHS 11/22/20 [History] Aripiprazole 10 mg [Abilify 10 MG] 10 mg PO DAILY 11/22/20 [History] Aspirin EC 81 mg [Ecotrin 81 mg] 81 mg PO DAILY 11/22/20 [History] Carbidopa/Levodopa [Carbidopa-Levo 25-100 Tab] 1.5 each PO TID 11/22/20 [History] Insulin Glargine,Hum.rec.anlog [Lantus Solostar] 15 unit SQ HS 11/22/20 [History] PARoxetine HCL [Paroxetine HCl] 40 mg PO DAILY 11/22/20 [History] Hx Tetanus, Diphtheria Vaccination/Date Given: No Hx Influenza Vaccination/Date Given: Yes Hx Pneumococcal Vaccination/Date Given: No Immunizations Up to Date: Yes Travel Risk - International Travel Have you traveled outside of the country in past 3 weeks: No - Coronavirus Screening Are you exhibiting any of the following symptoms?: Yes Symptoms: Shortness of Breath Close contact with a COVID-19 positive Pt in past 14-21 Days: No - Review of Systems Constitutional: Fatigue, Weakness Eyes: No Symptoms Ears, Nose, & Throat: Nose Congestion, Sinus Drainage Respiratory: Cough, Dyspnea, Dyspnea on Exertion (PNEG), Wheezing Cardiac: Chest Pain, Edema Abdominal/Gastrointestinal: No Symptoms Genitourinary Symptoms: No Symptoms Musculoskeletal: No Symptoms Skin: No Symptoms Neurological: No Symptoms Psychological: No Symptoms Endocrine: No Symptoms Hematologic/Lymphatic: No Symptoms Immunological/Allergic: No Symptoms - Past Medical History Pertinent Past Medical History: Yes Neurological History: Migraines, Peripheral Neuropathy ENT History: Cataracts Cardiac History: Coronary Artery Disease, Hypertension, Peripheral Vascular Disease Respiratory History: COPD, Pneumonia Endocrine Medical History: Diabetes Type II, Hypothyroidism Musculoskeletal History: Arthritis GI Medical History: No Pertinent History History: No Pertinent History Psycho-Social History: Depression Female Reproductive Disorders: Fibroids - Past Surgical History Past Surgical History: Yes Neuro Surgical History: No Pertinent History Cardiac: No Pertinent History, Cardiac Catheterization, Cardiac Stent, Vascular Surgery Respiratory: No Pertinent History Gastrointestinal: No Pertinent History Genitourinary: No Pertinent History Musculoskeletal: Joint Replacement, Orthopedic Surgery Female Surgical History: Section, Hysterectomy Other Surgical History: stent placed to l leg, priti. knee replacement, left femur fx with hdwe placed,right hip repair with hdwe placed - Social History Smoking Status: Former smoker How long have you smoked: 45 Exposure to second hand smoke: No Drug Use: none Patient Lives Alone: No - Female History Hx Last Menstrual Period: post Hx Now: No - Nursing Vital Signs Nursing Vital Signs: Initial Vital Signs Respiratory Rate 20 12/08/20 10:18 O2 Sat by Pulse Oximetry 97 12/08/20 10:18 Pain Scale Pain Intensity 5 - Physical Exam General Appearance: mild distress, alert Eye Exam: PERRL/EOMI, eyes nml inspection Ears, Nose, Throat Exam: hearing grossly normal, sinus pain/drainage, nasal congestion, pharyngeal erythema Neck Exam: normal inspection, non-tender, full range of motion Respiratory Exam: respiratory distress, diminished breath sounds, accessory muscle use, crackles/rales, rhonchi, wheezing Cardiovascular/Chest Exam: normal heart sounds, regular rate/rhythm Abdominal/Gastrointestinal Exam: soft, normal bowel sounds, No tenderness Extremity Exam: non-tender, normal range of motion Neurologic Exam: alert, oriented x 3, cooperative, net front end developer II-XII nml as tested Skin Exam: normal color SpO2 Interpretation: normal SpO2: 93 O2 Delivery: Nasal Cannula - Course EKG Interpreted by Me: RATE (89), Sinus Rhythm, NORMAL AXIS, Other (Multifocal PVCs. Nonspecific T wave changes. No ST elevation. 1349. Right 105. Rhythm sinus tach. Ventricular bigeminy. Inferior Q waves. Nonspecific ST changes. No ST elevation.) Ordered Tests: Active Orders 24 hr Category Date Time Status Technical Agronomist STAT Care 12/08/20 10:35 Active EKG-ER Only STAT Care 12/08/20 10:34 Active IV Insertion STAT Care 12/08/20 10:34 Active Oxygen-ED Only Nasal Cannula 3 lpm Care 12/08/20 10:34 Active CHEST 1 VIEW (PORTABLE) Stat Exams 12/08/20 11:23 Taken CHEST WITH CONTRAST [CT] Stat Exams 12/08/20 13:34 Taken ARTERIAL BLOOD GASES Stat Lab 12/08/20 10:34 Completed BLOOD CULTURE Stat Lab 12/08/20 10:55 Received CBC W DIFF Stat Lab 12/08/20 10:34 Completed CMP Stat Lab 12/08/20 10:55 Completed D-DIMER QUANTITATIVE Stat Lab 12/08/20 11:57 Completed Lactic Acid Stat Lab 12/08/20 10:34 Completed MAGNESIUM Stat Lab 12/08/20 10:55 Completed NT PRO BNP Stat Lab 12/08/20 10:55 Completed TROPONIN Q3H Lab 12/08/20 10:55 Completed TROPONIN Q3H Lab 12/08/20 13:45 Ordered TROPONIN Q3H Lab 12/08/20 16:45 Ordered TROPONIN Q3H Lab 12/08/20 19:45 Ordered TROPONIN Q3H Lab 12/08/20 22:45 Ordered UA W/RFX UR CULTURE Stat Lab 12/08/20 13:30 Ordered Respiratory Therapy Assessment DAILY RT 12/08/20 11:36 Completed Medication Summary Discontinued Medications Generic Name Dose Route Start Last Admin Trade Name Freq PRN Reason Stop Dose Admin Albuterol/Ipratropium Confirm 12/08/20 11:16 Duoneb 0.5-3 Mg/3 Ml Neb Administered 12/08/20 11:17 Dose 3 ml IH .STK-MED ONE Albuterol/Ipratropium 3 ml 12/08/20 11:34 12/08/20 11:15 Duoneb 0.5-3 Mg/3 Ml Neb IH 12/08/20 11:35 3 ml STAT ONE Administration Albuterol/Ipratropium Confirm 12/08/20 13:48 Duoneb 0.5-3 Mg/3 Ml Neb Administered 12/08/20 13:49 Dose 3 ml IH .STK-MED ONE Aspirin 324 mg 12/08/20 11:54 12/08/20 11:57 Baby Aspirin 81 Mg Chew PO 12/08/20 11:55 324 mg STAT ONE Administration Furosemide 40 mg 12/08/20 12:09 12/08/20 12:49 Lasix 40 Mg/4 Ml IV 12/08/20 12:10 40 mg STAT ONE Administration Furosemide Confirm 12/08/20 12:47 Lasix 40 Mg/4 Ml Administered 12/08/20 12:48 Dose 40 mg .ROUTE .STK-MED ONE Azithromycin 500 mg in 250 mls @ 250 mls/hr 12/08/20 11:36 12/08/20 13:34 Zithromax 500 Mg/ 250 Ml Nacl Premix IV 12/08/20 12:35 Infused STAT STA Infusion Ceftriaxone Sodium/Dextrose 1 g in 50 mls @ 100 mls/hr 12/08/20 11:36 12/08/20 12:53 Rocephin 1 Gm-D5w 50 Ml Bag IV 12/08/20 12:05 Infused STAT STA Infusion Ceftriaxone Sodium/Dextrose Confirm 12/08/20 11:42 Rocephin 1 Gm-D5w 50 Ml Bag Administered 12/08/20 11:43 Dose 1 g in 50 mls @ ud IV .STK-MED ONE Azithromycin Confirm 12/08/20 12:17 Zithromax 500 Mg/ 250 Ml Nacl Premix Administered 12/08/20 12:18 Dose 500 mg in 250 mls @ ud IV .STK-MED ONE Lab/Rad Data: Laboratory Result Diagrams 12/08/20 10:34 12/08/20 10:55 Laboratory Results 12/08/20 12/08/20 12/08/20 Range/Units 11:57 11:49 10:55 WBC (4.0-10.5) K/mm3 RBC (4.1-5.4) M/mm3 Hgb (12.0-16.0) gm/dl Hct (35-47) % MCV (78-100) fl MCH (26-32) pg MCHC (32-36) g/dl RDW (11.5-14.0) % Plt Count (150-450) K/mm3 MPV (7.5-11.0) fl Gran % (36.0-66.0) % Eos # (Auto) (0-0.5) Absolute Lymphs (auto) (1.0-4.6) Absolute Monos (auto) (0.0-1.3) Lymphocytes % (24.0-44.0) % Monocytes % (0.0-12.0) % Eosinophils % (0.00-5.0) % Basophils % (0.0-0.4) % Absolute Granulocytes (1.4-6.9) Basophils # (0-0.4) D-Dimer 1669 H* (215-500) ng/mL Puncture Site pCO2 (35-45) mmHg pO2 (75-100) mmHg Base Excess (-2.0-2.0) O2 Saturation (94-100) g/dF ABG pH (7.35-7.45) ABG HCO3 (22-28) ABG O2 Sat (Measured) (95-100) % Jorge Test A-a Gradient a/A Ratio Hemoglobin Carboxyhemoglobin (0.0-6.9) % THgb Methemoglobin (1.4-1.5) % Potassium (3.5-5.1) Temperature C POC O2 Flow Rate % Sodium (137-145) mmol/L Chloride (98-107) mmol/L Carbon Dioxide (22-30) mmol/L Anion Gap (5-15) MEQ/L BUN (7-17) mg/dL Creatinine (0.52-1.04) mg/dL Estimated GFR ML/MIN Glucose (74-106) mg/dL Lactic Acid (0.4-2.0) Calcium (8.4-10.2) mg/dL Magnesium (1.6-2.3) mg/dL Total Bilirubin (0.2-1.3) mg/dL AST (14-36) U/L ALT (0-35) U/L Alkaline Phosphatase (38-126) U/L Troponin I 0.054 H* (0.000-0.034) ng/mL NT-Pro-B Natriuret Pep (0-900) pg/mL Serum Total Protein (6.3-8.2) g/dL Albumin (3.5-5.0) g/dL SARS-CoV-2 (PCR) POSITIVE A (NEGATIVE) 02/05/2112/08/20 12/08/20 Range/Units 10:55 10:34 10:34 WBC 9.1 (4.0-10.5) K/mm3 RBC 3.69 L (4.1-5.4) M/mm3 Hgb 10.4 L (12.0-16.0) gm/dl Hct 33.3 L (35-47) % MCV 90.2 (78-100) fl MCH 28.2 (26-32) pg MCHC 31.2 L (32-36) g/dl RDW 13.8 (11.5-14.0) % Plt Count 334 (150-450) K/mm3 MPV 10.0 (7.5-11.0) fl Gran % 86.5 H (36.0-66.0) % Eos # (Auto) 0.01 (0-0.5) Absolute Lymphs (auto) 0.73 L (1.0-4.6) Absolute Monos (auto) 0.48 (0.0-1.3) Lymphocytes % 8.0 L (24.0-44.0) % Monocytes % 5.3 (0.0-12.0) % Eosinophils % 0.1 (0.00-5.0) % Basophils % 0.1 (0.0-0.4) % Absolute Granulocytes 7.89 H (1.4-6.9) Basophils # 0.01 (0-0.4) D-Dimer (215-500) ng/mL Puncture Site RIGHT BRACHIAL pCO2 43 (35-45) mmHg pO2 101 H (75-100) mmHg Base Excess 6.0 H (-2.0-2.0) O2 Saturation 95.7 (94-100) g/dF ABG pH 7.46 H (7.35-7.45) ABG HCO3 30.6 H* (22-28) ABG O2 Sat (Measured) 98.4 (95-100) % Jorge Test NOT APPLICABLE A-a Gradient 102 a/A Ratio 0.50 Hemoglobin 11.0 Carboxyhemoglobin 1.9 (0.0-6.9) % THgb Methemoglobin 0.8 L (1.4-1.5) % Potassium 3.6 3.6 (3.5-5.1) Temperature 37.0 C POC O2 Flow Rate 36 % Sodium 126 L (137-145) mmol/L Chloride 88 L (98-107) mmol/L Carbon Dioxide 31 H (22-30) mmol/L Anion Gap 9.9 (5-15) MEQ/L BUN 15 (7-17) mg/dL Creatinine 0.74 (0.52-1.04) mg/dL Estimated GFR > 60.0 ML/MIN Glucose 110 H (74-106) mg/dL Lactic Acid 0.9 (0.4-2.0) Calcium 8.7 (8.4-10.2) mg/dL Magnesium 1.7 (1.6-2.3) mg/dL Total Bilirubin 0.50 (0.2-1.3) mg/dL AST 23 (14-36) U/L ALT 4 (0-35) U/L Alkaline Phosphatase 66 (38-126) U/L Troponin I (0.000-0.034) ng/mL NT-Pro-B Natriuret Pep 2020 H (0-900) pg/mL Serum Total Protein 6.8 (6.3-8.2) g/dL Albumin 3.6 (3.5-5.0) g/dL SARS-CoV-2 (PCR) (NEGATIVE) - Progress Progress: improved Air Movement: fair Progress Note: 12/08/20 12:32 75 years old is evaluated in the ER with worsening cough shortness of breath with respiratory distress. Patient is given DuoNeb and's steroid and currently on 4 L oxygen on presentation with sats around 96%. She is given another breathing treatment. EKG showed sinus rhythm with PVCs but no acute ST elevations. Initial troponins are mildly elevated 0.05 and also has elevated BNP and patient has loud crackling, given a dose of Lasix as well. As I think p atient has CHF exacerbation causing elevation and troponin and also because of respiratory failure. Chest x-ray showed congestion and bilateral airspace disease consistent with infective process and given a dose of Rocephin and Zithromax. She has mildly low sodium 126. Discussed with Dr. Medrano, recommended transfer to facility with cardiology services because of her elevated troponin. I have discussed with Dr. Napoleon Perdue at [facility], reviewed patient presentation/history/work-up and current management, agreed with transfer. Patient COVID-19 test is positive. 12/08/20 12:37 12/08/20 13:52 She has elevated D-dimers and CTA chest is obtained. When patient came back fr om CT she was climbing with more wheezing and crackling. She is given another dose of Lasix 20mg as her pressure is only 119 systolic. Repeated EKG which did not show any ST elevations. Blood Culture(s) Obtained: Yes Antibiotics given: Yes Discussed with : Jose Counseled pt/family regarding: lab results, diagnosis, rad results - Departure Departure Disposition: Transfer Clinical Impression: COPD exacerbation, COVID-19 Respiratory failure Qualifiers: Chronicity: acute Respiratory failure complication: hypoxia Qualified Code(s): J96.01 - Acute respiratory failure with hypoxia CHF exacerbation Qualifiers: Heart failure type: unspecified Qualified Code(s): I50.9 - Heart failure, unspecified Condition: Fair Critical Care Time: Yes Critical Care Time(excluding separately billable procedures): Critical 30-74 mins Referrals: ALFREDITO MEDRANO [Primary Care Provider] - Instructions: Heart Failure, Chronic Obstructive Pulmonary Disease
[2020-12-08] MEDS ORDERED: Lasix 40 MG/4 ML ONE ×2 (12:47→13:50)
[2020-12-08 14:01] LABS: Appearance CLOUDY (CLEAR); Bacteria FEW /HPF (NEGATIVE); Bilirubin NEGATIVE (NEGATIVE); Blood SMALL Ery/ul (0-5); Epithelial Cells RARE /HPF (FEW); Glucose NEGATIVE (NEGATIVE); Ketones NEGATIVE (NEGATIVE); Leukocyte Esterase LARGE (NEGATIVE); Nitrite POSITIVE (NEGATIVE); Protein,Urine Dip 100 (Negative); Specific Gravity 1.009 (1.005-1.025); Urobilinogen NEGATIVE mg/dL (0-1); WBC >100 /HPF (0-5)
[2020-12-08 15:18] VITALS: BP 120/63; PULSE 98; O2SAT 98
--- NOTE | 2020-12-08 18:06 | XRAY ---
Indication: Short of breath, elevated d-dimer, and positive COVID 19. Multiple contiguous axial images obtained through the chest using 80 cc Isovue 370 contrast and PE protocol. Comparison: None There is adequate opacification of the pulmonary arteries to include the lobar and segmental branches. No pulmonary embolus. Heart is enlarged. Aorta is minimally atherosclerotic without aneurysm/dissection. Small shotty mediastinal and bilateral hilar lymph nodes, none pathologically enlarged. Lungs demonstrates mild patchy peripheral airspace disease bilaterally. More consolidating airspace opacities seen in the perihilar distribution bilaterally. Minimal bibasilar compressive atelectasis with tiny effusions. Bony thorax intact with moderate degenerative changes throughout the spine, lymph nodes T10/T11 endplate fractures, and right shoulder arthroplasty. Limited upper abdomen degraded by respiration artifact with tiny gallbladder gravel/sludge and a few tiny left renal cysts. Impression: 1. Negative pulmonary embolus. 2. Diffuse consolidating and nonconsolidating bilateral airspace disease with tiny bilateral effusions. 3. Incidental cardiomegaly gallbladder gravel/sludge, left renal cyst, and chronic bony findings. Comment: Preliminary interpretation was made by [facility]. No critical discrepancy.
--- NOTE | 2020-12-08 18:08 | XRAY ---
Indication: Short of breath. Comparison: October 12, 2018. Portable chest demonstrates new cardiomegaly and diffuse bilateral patchy groundglass airspace disease with tiny bibasilar effusions. Bony thorax intact with interval right shoulder arthroplasty.
== END 2020-12-08 15:10 | disposition short-term general hospital (02) ==
LOC: ED 10:17
DX: J44.1 Chronic obstructive pulmonary disease with (acute) exacerbation (principal); U07.1 COVID-19; R79.1 Abnormal coagulation profile; J96.01 Acute respiratory failure with hypoxia; I50.9 Heart failure, unspecified; R06.02 Shortness of breath; R05 Cough; R07.89 Other chest pain; Z79.899 Other long term (current) drug therapy; I10 Essential (primary) hypertension; I73.9 Peripheral vascular disease, unspecified; E11.9 Type 2 diabetes mellitus without complications
CPT/HCPCS: 36000; 36415; 36600; 71045; 71260; 80053; 81001; 82375; 82803; 82947; 83605; 83735; 83880; 84484; 85025; 85379; 87040; 87077; 87086; 87186; 93005; 93041; 94640; 96365; 96367; 96374; 96376; 99285; 99291; U0003; J0456; J0696; J1940; A9270-GY

== ENCOUNTER 2021-03-13 10:42 | Emergency (ER) | payer MEDICARE ==
--- NOTE | 2021-03-13 10:48 | ERPHSYRPT ---
- History of Present Illness Time Seen by Provider: 03/13/21 10:48 Source: patient, EMS Exam Limitations: clinical condition Physician History: This is a morbidly obese 76-year-old white female patient of Dr. Medrano who has a history of peripheral neuropathy, insulin-dependent diabetes, peripheral vascular disease, COPD, recurrent pneumonia, Parkinson's disease, hypothyr oidism, hypercholesterol is him, CHF, hypertension, migraine headaches and coronary artery disease with coronary stents. She is on Plavix. She presents with worsening shortness of breath over the last 2 days. She denies chest pain. Her car racer is Dr. Douglas. Patient has had COVID-19 infection back in October 2020. She has not received a vaccination and does not plan to do so. Her shortness of breath has been associated with cough and wheezing. She has no abdominal pain. She has not had a fever. Timing/Duration: day(s) (2) Activities at Onset: none Severity of Dyspnea-Max: moderate Severity of Dyspnea-Current: moderate Possible Cause: occasional episodes Modifying Factors: Improves With: activity, coughing Associated Symptoms: cough, wheezing, weakness Allergies/Adverse Reactions: acetaminophen [From Lortab] Allergy (Mild, Verified 12/08/20 10:23) Nausea hydrocodone bitartrate [From Lortab] Allergy (Mild, Verified 12/08/20 10:23) Home Medications: Alendronate Sodium 70 mg [Fosamax 70 MG] 70 mg PO WEEKLY 09/01/17 [History] Ergocalciferol (Vitamin D2) [Vitamin D] 50,000 unit PO WEEKLY 09/01/17 [History] Furosemide 20 mg [Lasix 20 mg] 20 mg PO DAILY 09/01/17 [History] Insulin Aspart [NovoLOG Insulin] 18 units SQ TIDWM 09/01/17 [History] Levothyroxine Sodium 50 Mcg [Synthroid 50 Mcg] 50 mcg PO DAILY 09/01/17 [History] Pravastatin Sodium 80 mg PO HS 09/01/17 [History] Clopidogrel Bisulfate 75 mg [PLAVIX 75 MG Tablet] 75 mg PO HS 10/12/18 [History] Nitroglycerin 0.4 mg Tablet [Nitrostat 0.4 MG Tablet] 0.4 mg SL Q5MIN PRN MR X 3 PRN 10/12/18 [History] Amlodipine Besylate 5 mg [Norvasc 5 mg] 10 mg PO QHS 11/22/20 [History] Aripiprazole 10 mg [Abilify 10 MG] 10 mg PO DAILY 11/22/20 [History] Aspirin EC 81 mg [Ecotrin 81 mg] 81 mg PO DAILY 11/22/20 [History] Carbidopa/Levodopa [Carbidopa-Levo 25-100 Tab] 1.5 tab PO TID 11/22/20 [History] Insulin Glargine,Hum.rec.anlog [Lantus Solostar] 20 unit SQ HS 11/22/20 [History] PARoxetine HCL [Paroxetine HCl] 40 mg PO DAILY 11/22/20 [History] Hx Tetanus, Diphtheria Vaccination/Date Given: No Hx Influenza Vaccination/Date Given: Yes Hx Pneumococcal Vaccination/Date Given: No Travel Risk - International Travel Have you traveled outside of the country in past 3 weeks: No - Coronavirus Screening Symptoms: Cough: New Onset, Shortness of Breath Close contact with a COVID-19 positive Pt in past 14-21 Days: No - Vaccine Status Have you recieved a Covid-19 vaccination: No - Review of Systems Constitutional: Weakness Eyes: No Symptoms Ears, Nose, & Throat: No Symptoms Respiratory: Cough, Dyspnea on Exertion (PENG), Wheezing Cardiac: No Symptoms Abdominal/Gastrointestinal: No Symptoms Genitourinary Symptoms: No Symptoms Musculoskeletal: No Symptoms Skin: No Symptoms Neurological: No Symptoms Psychological: No Symptoms Endocrine: No Symptoms Hematologic/Lymphatic: No Symptoms Immunological/Allergic: No Symptoms All Other Systems: Reviewed and Negative - Past Medical History Pertinent Past Medical History: Yes Neurological History: Migraines, Peripheral Neuropathy ENT History: Cataracts Cardiac History: Coronary Artery Disease, Hypertension, Peripheral Vascular Disease Respiratory History: COPD, Pneumonia Endocrine Medical History: Diabetes Type II, Hypothyroidism Musculoskeletal History: Arthritis GI Medical History: No Pertinent History History: No Pertinent History Psycho-Social History: Depression Female Reproductive Disorders: Fibroids - Past Surgical History Past Surgical History: Yes Neuro Surgical History: No Pertinent History Cardiac: No Pertinent History, Cardiac Catheterization, Cardiac Stent, Vascular Surgery Respiratory: No Pertinent History Gastrointestinal: No Pertinent History Genitourinary: No Pertinent History Musculoskeletal: Joint Replacement, Orthopedic Surgery Female Surgical History: Section, Hysterectomy Other Surgical History: stent placed to l leg, priti. knee replacement, left femur fx with hdwe placed,right hip repair with hdwe placed - Social History Smoking Status: Former smoker How long have you smoked: 45 Exposure to second hand smoke: No Drug Use: none Patient Lives Alone: No - Nursing Vital Signs Nursing Vital Signs: Initial Vital Signs Temperature 97.7 F 03/13/21 10:44 Pulse Rate 112 H 03/13/21 10:44 Respiratory Rate 28 H 03/13/21 10:44 Blood Pressure 189/96 03/13/21 10:44 O2 Sat by Pulse Oximetry 78 L 03/13/21 10:44 Pain Scale Pain Intensity 0 - Physical Exam General Appearance: moderate distress, alert, anxiety, obese Eye Exam: PERRL/EOMI, eyes nml inspection Ears, Nose, Throat Exam: hearing grossly normal, normal ENT inspection Neck Exam: normal inspection, non-tender, supple, full range of motion Respiratory Exam: respiratory distress (Held), airway intact, rhonchi, wheezing Cardiovascular/Chest Exam: tachycardia Abdominal/Gastrointestinal Exam: soft, normal bowel sounds, tenderness Rectal Exam: not done Extremity Exam: non-tender, normal range of motion, pedal edema (Feet and ankles) Neurologic Exam: alert, oriented x 3, cooperative, accountant budget II-XII nml as tested, normal mood/affect, sensation nml Skin Exam: normal color, warm, dry Lymphatic Exam: No adenopathy SpO2 Interpretation: normal O2 Delivery: Room Air - Course Nursing assessment & vital signs reviewed: Yes EKG Interpreted by Me: RATE (103), Sinus Tach, NORMAL AXIS, prolonged QT interval (Borderline), NORMAL QRS, Non-specific ST Changes, Other (No acute ischemic changes. The patient does have ventricular bigeminy. When compared to the EKG dated 12/08/2020 there are no changes from this prior EKG) Ordered Tests: Active Orders 24 hr Category Date Time Status EKG-ER Only STAT Care 03/13/21 10:56 Active IV Insertion STAT Care 03/13/21 10:56 Active Pulse Oximetry (ED) STAT Care 03/13/21 10:56 Active CHEST 1 VIEW (PORTABLE) Stat Exams 03/13/21 10:57 Completed CHEST WITH CONTRAST [CT] Stat Exams 03/13/21 12:37 Completed ABG [ARTERIAL BLOOD GASES] Stat Lab 03/13/21 10:35 Completed BLOOD CULTURE Stat Lab 03/13/21 11:35 Received CBC W DIFF Stat Lab 03/13/21 11:16 Completed CMP Stat Lab 03/13/21 11:16 Completed D-DIMER QUANTITATIVE Stat Lab 03/13/21 11:16 Completed INFLUENZA A+B GARETH Stat Lab 03/13/21 12:52 Completed Lactic Acid Routine Lab 03/13/21 14:10 Completed Lactic Acid Stat Lab 03/13/21 10:35 Completed MAGNESIUM Stat Lab 03/13/21 11:16 Completed NT PRO BNP Stat Lab 03/13/21 11:16 Completed TROPONIN Q3H Lab 03/13/21 11:16 Completed TROPONIN Q3H Lab 03/13/21 14:05 Completed TROPONIN Q3H Lab 03/13/21 17:00 Ordered TROPONIN Q3H Lab 03/13/21 20:00 Ordered TROPONIN Q3H Lab 03/13/21 23:00 Ordered Medication Summary Generic Name Dose Route Start Last Admin Trade Name Freq PRN Reason Stop Dose Admin Sodium Chloride 1,000 mls @ 100 mls/hr 03/13/21 12:15 03/13/21 12:32 Sodium Chloride 0.9% 1000 Ml IV 04/12/21 12:14 100 mls/hr .Q10H MICHAELA Administration Discontinued Medications Generic Name Dose Route Start Last Admin Trade Name Freq PRN Reason Stop Dose Admin Furosemide 40 mg 03/13/21 12:20 03/13/21 12:32 Lasix 40 Mg/4 Ml IV 03/13/21 12:21 40 mg STAT ONE Administration Furosemide Confirm 03/13/21 12:30 Lasix 40 Mg/4 Ml Administered 03/13/21 12:31 Dose 40 mg .ROUTE .STK-MED ONE Meropenem 1 g/ Sodium Chloride 100 mls @ 200 mls/hr 03/13/21 12:19 03/13/21 12:31 IV 03/13/21 12:48 200 mls/hr STAT ONE Administration Sodium Chloride Confirm 03/13/21 12:29 Sodium Chloride 100ml Mini-Bag Plus Administered 03/13/21 12:30 Dose 100 mls @ ud IV .STK-MED ONE Meropenem Confirm 03/13/21 12:28 Merrem 1 Gm Administered 03/13/21 12:29 Dose 1 g IV .STK-MED ONE Lab/Rad Data: Laboratory Result Diagrams 03/13/21 11:16 03/13/21 11:16 Laboratory Results 03/13/21 03/13/21 03/13/21 Range/Units 14:10 14:05 12:52 WBC (4.0-10.5) K/mm3 RBC (4.1-5.4) M/mm3 Hgb (12.0-16.0) gm/dl Hct (35-47) % MCV (78-100) fl MCH (26-32) pg MCHC (32-36) g/dl RDW (11.5-14.0) % Plt Count (150-450) K/mm3 MPV (7.5-11.0) fl Gran % (36.0-66.0) % Eos # (Auto) (0-0.5) Absolute Lymphs (auto) (1.0-4.6) Absolute Monos (auto) (0.0-1.3) Lymphocytes % (24.0-44.0) % Monocytes % (0.0-12.0) % Eosinophils % (0.00-5.0) % Basophils % (0.0-0.4) % Absolute Granulocytes (1.4-6.9) Basophils # (0-0.4) D-Dimer (215-500) ng/mL Puncture Site pCO2 (35-45) mmHg pO2 (75-100) mmHg Base Excess (-2.0-2.0) O2 Saturation (94-100) g/dF ABG pH (7.35-7.45) ABG HCO3 (22-28) ABG O2 Sat (Measured) (95-100) % Jorge Test A-a Gradient a/A Ratio Hemoglobin Carboxyhemoglobin (0.0-6.9) % THgb Methemoglobin (1.4-1.5) % Potassium (3.5-5.1) Temperature C POC O2 Flow Rate % Sodium (137-145) mmol/L Chloride (98-107) mmol/L Carbon Dioxide (22-30) mmol/L Anion Gap (5-15) MEQ/L BUN (7-17) mg/dL Creatinine (0.52-1.04) mg/dL Estimated GFR ML/MIN Glucose (74-106) mg/dL Lactic Acid 1.1 (0.4-2.0) Calcium (8.4-10.2) mg/dL Magnesium (1.6-2.3) mg/dL Total Bilirubin (0.2-1.3) mg/dL AST (14-36) U/L ALT (0-35) U/L Alkaline Phosphatase (38-126) U/L Troponin I 0.552 H* (0.000-0.034) ng/mL NT-Pro-B Natriuret Pep (0-1800) pg/mL Serum Total Protein (6.3-8.2) g/dL Albumin (3.5-5.0) g/dL Influenza Type A Ag NEGATIVE (NEGATIVE) Influenza Type B Ag NEGATIVE (NEGATIVE) 03/13/21 03/13/21 03/13/21 Range/Units 11:16 11:16 11:16 WBC (4.0-10.5) K/mm3 RBC (4.1-5.4) M/mm3 Hgb (12.0-16.0) gm/dl Hct (35-47) % MCV (78-100) fl MCH (26-32) pg MCHC (32-36) g/dl RDW (11.5-14.0) % Plt Count (150-450) K/mm3 MPV (7.5-11.0) fl Gran % (36.0-66.0) % Eos # (Auto) (0-0.5) Absolute Lymphs (auto) (1.0-4.6) Absolute Monos (auto) (0.0-1.3) Lymphocytes % (24.0-44.0) % Monocytes % (0.0-12.0) % Eosinophils % (0.00-5.0) % Basophils % (0.0-0.4) % Absolute Granulocytes (1.4-6.9) Basophils # (0-0.4) D-Dimer 1788 H* (215-500) ng/mL Puncture Site pCO2 (35-45) mmHg pO2 (75-100) mmHg Base Excess (-2.0-2.0) O2 Saturation (94-100) g/dF ABG pH (7.35-7.45) ABG HCO3 (22-28) ABG O2 Sat (Measured) (95-100) % Jorge Test A-a Gradient a/A Ratio Hemoglobin Carboxyhemoglobin (0.0-6.9) % THgb Methemoglobin (1.4-1.5) % Potassium 4.0 (3.5-5.1) Temperature C POC O2 Flow Rate % Sodium 121 L (137-145) mmol/L Chloride 82 L (98-107) mmol/L Carbon Dioxide 26 (22-30) mmol/L Anion Gap 16.8 H (5-15) MEQ/L BUN 16 (7-17) mg/dL Creatinine 0.72 (0.52-1.04) mg/dL Estimated GFR > 60.0 ML/MIN Glucose 222 H (74-106) mg/dL Lactic Acid (0.4-2.0) Calcium 9.2 (8.4-10.2) mg/dL Magnesium 1.9 (1.6-2.3) mg/dL Total Bilirubin 1.40 H (0.2-1.3) mg/dL AST 45 H (14-36) U/L ALT 11 (0-35) U/L Alkaline Phosphatase 138 H (38-126) U/L Troponin I 0.474 H* (0.000-0.034) ng/mL NT-Pro-B Natriuret Pep 3230 H (0-1800) pg/mL Serum Total Protein 7.8 (6.3-8.2) g/dL Albumin 4.3 (3.5-5.0) g/dL Influenza Type A Ag (NEGATIVE) Influenza Type B Ag (NEGATIVE) 03/13/21 03/13/21 Range/Units 11:16 10:35 WBC 21.7 H (4.0-10.5) K/mm3 RBC 4.11 (4.1-5.4) M/mm3 Hgb 11.6 L (12.0-16.0) gm/dl Hct 36.3 (35-47) % MCV 88.3 (78-100) fl MCH 28.2 (26-32) pg MCHC 32.0 (32-36) g/dl RDW 13.7 (11.5-14.0) % Plt Count 419 (150-450) K/mm3 MPV 10.4 (7.5-11.0) fl Gran % 90.7 H (36.0-66.0) % Eos # (Auto) 0.01 (0-0.5) Absolute Lymphs (auto) 0.73 L (1.0-4.6) Absolute Monos (auto) 1.28 (0.0-1.3) Lymphocytes % 3.4 L (24.0-44.0) % Monocytes % 5.9 (0.0-12.0) % Eosinophils % 0.0 (0.00-5.0) % Basophils % 0.0 (0.0-0.4) % Absolute Granulocytes 19.66 H (1.4-6.9) Basophils # 0.01 (0-0.4) D-Dimer (215-500) ng/mL Puncture Site LEFT RADIAL pCO2 46 H (35-45) mmHg pO2 51 L (75-100) mmHg Base Excess -2.6 L (-2.0-2.0) O2 Saturation 80.5 L (94-100) g/dF ABG pH 7.32 L (7.35-7.45) ABG HCO3 23.7 (22-28) ABG O2 Sat (Measured) 82.5 L (95-100) % Jorge Test YES A-a Gradient 41 a/A Ratio 0.55 Hemoglobin 12.0 Carboxyhemoglobin 1.6 (0.0-6.9) % THgb Methemoglobin 0.8 L (1.4-1.5) % Potassium 4.3 (3.5-5.1) Temperature 37.0 C POC O2 Flow Rate 21 % Sodium (137-145) mmol/L Chloride (98-107) mmol/L Carbon Dioxide (22-30) mmol/L Anion Gap (5-15) MEQ/L BUN (7-17) mg/dL Creatinine (0.52-1.04) mg/dL Estimated GFR ML/MIN Glucose (74-106) mg/dL Lactic Acid 4.0 H (0.4-2.0) Calcium (8.4-10.2) mg/dL Magnesium (1.6-2.3) mg/dL Total Bilirubin (0.2-1.3) mg/dL AST (14-36) U/L ALT (0-35) U/L Alkaline Phosphatase (38-126) U/L Troponin I (0.000-0.034) ng/mL NT-Pro-B Natriuret Pep (0-1800) pg/mL Serum Total Protein (6.3-8.2) g/dL Albumin (3.5-5.0) g/dL Influenza Type A Ag (NEGATIVE) Influenza Type B Ag (NEGATIVE) - Progress Progress: improved, re-examined Air Movement: fair Progress Note: 03/13/21 12:20 Chest x-ray shows cardiomegaly with bilateral vascular changes. There is a small right pleural effusion. A superimposed pulmonary infiltrate cannot be excluded within the lung bases, right upper lung field and left midlung. 03/13/21 14:46 CAT scan of the chest with contrast shows bilateral infiltrates, pneumonia, evidence of CHF with small pleural effusions. There is no evidence of pulmonary emboli. The pneumonia is consistent with COVID-19 pattern and COVID-19 pneumonia should be considered in the differential. 03/13/21 15:25 Medical decision making: This patient needs transfer to a facility where there are multiple specialist present including cardiology and pulmonology. I could not provide this patient with boluses of intravenous fluid because she has a history of CHF and today has clinical findings of worsening CHF as well as radiographic findings of the same. We are trying to strike a balance to provide this patient with sepsis picture, elevated lactic acid with intravenous fluids with the fact that she has clinical signs and symptoms and radiographic evidence of worsening CHF. I have put a call into [facility] and I am currently awaiting a callback from the hospitalist. Blood Culture(s) Obtained: Yes Antibiotics given: Yes Counseled pt/family regarding: lab results, diagnosis, need for follow-up, rad results - Departure Departure Disposition: Transfer Clinical Impression: Leukocytosis, CHF (congestive heart failure), Elevated troponin, Sepsis, Hypoxia, Hyponatremia Condition: Fair Critical Care Time: Yes Critical Care Time(excluding separately billable procedures): Critical 75-104 mins Referrals: ALFREDITO MEDRANO [Primary Care Provider] - Instructions: Heart Failure
[2021-03-13 10:55] LABS: A-aADO2 41; ABG POTASSIUM 4.3 (3.5-5.1); ABG SITE LEFT RADIAL; ALLEN TEST OK? YES; ARTERIAL BLD GAS O2 SATURATION 82.5 % (95-100); ARTERIAL BLOOD GAS BASE EXCESS -2.6 (-2.0-2.0); ARTERIAL BLOOD GAS FIO2 21 %; ARTERIAL BLOOD GAS PCO2 46 mmHg (35-45); ARTERIAL BLOOD GAS PO2 51 mmHg (75-100); ARTERIAL BLOOD GAS pH 7.32 (7.35-7.45); CARBOXYHEMOGLOBIN 1.6 % THgb (0.0-6.9); HCO3- 23.7 (22-28); HGB O2 SAT 80.5 g/dF (94-100); Methhemoglobin 0.8 % (1.4-1.5)
[2021-03-13 11:19] LABS: Absolute Neutrophil Ct (ANC) 19.66 (1.4-6.9); Basophil (Absolute #) 0.01 (0-0.4); Eosinophil (Absolute #) 0.01 (0-0.5); Hematocrit 36.3 % (35-47); Hemoglobin 11.6 gm/dl (12.0-16.0); Lymphocyte (Absolute #) 0.73 (1.0-4.6); Lymphocytes % 3.4 % (24.0-44.0); Mean Cell Volume 88.3 fl (78-100); Mean Corpuscular Hemoglobin 28.2 pg (26-32); Mean Platelet Volume 10.4 fl (7.5-11.0); Monocyte (Absolute #) 1.28 (0.0-1.3); Monocytes % 5.9 % (0.0-12.0); Neutrophil % 90.7 % (36.0-66.0); Platelet Count 419 K/mm3 (150-450); Red Blood Count 4.11 M/mm3 (4.1-5.4); Red Cell Distribution Width 13.7 % (11.5-14.0); White Blood Count 21.7 K/mm3 (4.0-10.5)
[2021-03-13 11:31] LABS: ALBUMIN 4.3 g/dL (3.5-5.0); ALKALINE PHOSPHATASE 138 U/L (38-126); ANION GAP 16.8 MEQ/L (5-15); BLOOD UREA NITROGEN 16 mg/dL (7-17); CHLORIDE 82 mmol/L (98-107); Calcium 9.2 mg/dL (8.4-10.2); Carbon Dioxide 26 mmol/L (22-30); Creatinine 1 0.72 mg/dL (0.52-1.04); EST GLOMERULAR FILTRATION RATE > 60.0 ML/MIN; Glucose 222 mg/dL (74-106); MAGNESIUM 1.9 mg/dL (1.6-2.3); NT PRO BNP 3230 pg/mL (0-1800); SGOT/AST 45 U/L (14-36); SGPT/ALT 11 U/L (0-35); SODIUM 121 mmol/L (137-145); Total Protein 7.8 g/dL (6.3-8.2)
--- NOTE | 2021-03-13 11:37 | XRAY ---
Exam: AP upright portable chest film from 03/13/2021. Comparison: AP upright portable chest film from 12/08/2020. Indication: Shortness of breath for one week, history of COPD. Findings: The heart size remains moderately enlarged. There appears to be mild airspace disease/vascular congestion at both lung bases (right greater than left) extending to a lesser extent within the right upper lung field and the left midlung field. A dense consolidation is not seen. There is no pneumothorax. Some haziness within the right lateral costophrenic angle may be due to a small amount of pleural fluid. Surgical clips are noted within the left side of the neck representing no change. A reverse shoulder replacement arthroplasty is seen within the right shoulder representing no change. Lateral osteophyte formation is seen within the mid and lower thoracic spine. Impression: 1. Abnormal chest exam. Persistent moderate cardiomegaly, suspect bilateral vascular congestive changes, and a probable small right pleural effusion may indicate mild CHF and/or fluid volume overload. However, superimposed pneumonic infiltrates cannot be excluded within the lung bases, right upper lung field, and left midlung field as well. Correlate clinically.
[2021-03-13] MEDS ORDERED: Sodium Chloride 0.9% 1000 ML 1,000 ML ONE ×2 (12:14→12:30)
[2021-03-13] MEDS: Sodium Chloride 0.9% 1000 ML 1,000 ML IV SCH ×2 (12:15→12:32)
[2021-03-13] MEDS ORDERED: Merrem 1 GM 1 G in Sodium Chloride 100ML MINI-BAG PLUS 100 ML IV ONE (12:19)
[2021-03-13] MEDS ORDERED: Lasix 40 MG/4 ML IV ONE (12:20)
[2021-03-13] MEDS ORDERED: Merrem 1 GM IV ONE (12:28)
[2021-03-13] MEDS ORDERED: Sodium Chloride 100ML MINI-BAG PLUS 100 ML IV ONE (12:29)
[2021-03-13] MEDS ORDERED: Lasix 40 MG/4 ML ONE (12:30)
[2021-03-13 13:37] LABS: INFLUENZA A NEGATIVE (NEGATIVE); INFLUENZA B NEGATIVE (NEGATIVE)
--- NOTE | 2021-03-13 14:35 | XRAY ---
Exam: CT of the chest with IV contrast per PE protocol from 03/13/2021. Comparison: CT of the chest with IV contrast from 12/08/2020. Indication: 76-year-old female with shortness of air, elevated d-dimer (1788), history of COPD, and history of cardiac stent placement. Technique: Post-IV contrast axial images were obtained through the chest during automated injection of 100 cc of Isovue-370 contrast material. Reconstructed coronal and sagittal images were created and reviewed. Findings: The pulmonary arteries enhance well revealing no suspicious filling defects to suggest clot/emboli. The main pulmonary artery trunk measures up to 3.7 cm in diameter on axial image #129 which is unchanged. This is mildly dilated. Consider an element of pulmonary artery hypertension. The thoracic aorta reveals some atherosclerotic vascular calcification. No thoracic aortic aneurysm or dissection is seen. Extensive coronary artery calcification is seen bilaterally. There is mild to moderate cardiomegaly without evidence of pericardial effusion. I again see bilateral perihilar infiltrates and soft tissue density with some nonpathological mediastinal lymphadenopathy which is likely reactive. The lung stewart reveal patchy bilateral air space infiltrates within virtually every lobe of each lung. Some of these infiltrates are new. This is suggestive of bilateral pneumonia. Covid-19 pneumonia should be considered in the differential diagnosis. There again appears to be a mild posterior right pleural effusion which is perhaps slightly larger as compared to 12/08/2020. Minimal posterior right basilar compression atelectasis is seen. I also note some minor pleural thickening posteriorly at the left lung base, although no definite free-flowing pleural fluid is seen on this side. I see no evidence of pneumothorax. No acute fracture or aggressive bone lesion is seen. There is about a 50-60% compression fracture deformity of T12 which appears similar to 12/08/2020. I also note a mild anterior wedge fracture deformity which primarily involves the superior endplate of L1 representing no change. Advanced spondylosis is seen within the lower thoracic and visualized upper lumbar spine. Moderate degenerative disc disease is seen at both C5-C6 and C6-C7. The upper abdomen reveals an unremarkable appearance of the right adrenal gland. There is an oval-shaped soft tissue mass within the left adrenal gland on axial image #275 measuring about 2.7 cm x 1.9 cm in cross section. This measures +66 Hounsfield units. It is unchanged from 12/08/2020. Impression: 1. I see no evidence of acute pulmonary embolus. Neither do I see thoracic aortic aneurysm or dissection. 2. Scattered bilateral multifocal soft tissue densities/infiltrates are again seen as well as bilateral perihilar soft tissue densities with mediastinal lymphadenopathy. Some of the peripheral lung infiltrates are new suggesting worsening. I believe this is consistent with widespread bilateral pneumonia. Covid-19 pneumonia should be considered in the differential diagnosis. 3. Mild to moderate cardiomegaly with a mild posterior right pleural effusion. Mild CHF or fluid volume overload should be considered. 4. Indeterminate left adrenal nodule which in retrospect is essentially unchanged from 12/08/2020. 5. Other incidental findings, as discussed above.
[2021-03-13 15:18] LABS: COVID AG -BINAX NOW RAPID TEST NEGATIVE (NEGATIVE)
[2021-03-13] MEDS ORDERED: DUONEB 0.5-3 MG/3 ml Neb IH ONE ×2 (15:46→15:51)
[2021-03-13 17:12] VITALS: BP 150/70; PULSE 97; O2SAT 97
== END 2021-03-13 17:26 | disposition short-term general hospital (02) ==
LOC: ED 10:42
DX: D72.829 Elevated white blood cell count, unspecified (principal); I50.9 Heart failure, unspecified; R74.8 Abnormal levels of other serum enzymes; A41.9 Sepsis, unspecified organism; R65.20 Severe sepsis without septic shock; R09.02 Hypoxemia; E87.1 Hypo-osmolality and hyponatremia; G62.9 Polyneuropathy, unspecified; J44.9 Chronic obstructive pulmonary disease, unspecified; G20 Parkinson's disease; E11.9 Type 2 diabetes mellitus without complications; E03.9 Hypothyroidism, unspecified; I10 Essential (primary) hypertension; I25.810 Atherosclerosis of coronary artery bypass graft(s) without angina pectoris; Z79.899 Other long term (current) drug therapy; I73.9 Peripheral vascular disease, unspecified
CPT/HCPCS: 36000; 36415; 36600; 71045; 71260; 80053; 82375; 82803; 82947; 83605; 83735; 83880; 84484; 85025; 85379; 87040; 87400; 93005; 94640; 94760; 96365; 96374; 99000; 99285; 99291; 99292; J1940; A9270-GY

== ENCOUNTER 2021-09-19 15:51 | Inpatient (IN) | payer MEDICARE ==
--- NOTE | 2021-09-19 15:56 | ERPHSYRPT ---
- History of Present Illness Time Seen by Provider: 09/19/21 15:56 Source: patient Exam Limitations: no limitations Physician History: This is a 76-year-old obese white female patient of Dr. Mitchell Savage who saw Dr. Barajas today (platform beater) and he ordered lab test to be drawn today. Patient had a low sodium level of 117. Patient has no chest pain. She has no s hortness of breath. She has no abdominal pain. She denies nausea vomiting diarrhea. She does feel as though she is dizzy and unsteady on her feet. Patient does have a history of hypothyroidism, hypertension, insulin-dependent diabetes, Parkinson's disease, coronary artery disease, migraine headaches, peripheral neuropathy and peripheral vascular disease. Timing/Duration: today Severity: mild (Mild to moderate) Associated Symptoms: weakness, other (Unsteady on her feet, dizziness), No nausea, No vomiting, No abdominal pain, No shortness of breath, No chest pain, No headaches Allergies/Adverse Reactions: acetaminophen [From Lortab] Allergy (Mild, Verified 09/19/21 16:18) Nausea hydrocodone bitartrate [From Lortab] Allergy (Mild, Verified 09/19/21 16:18) Home Medications: Alendronate Sodium 70 mg [Fosamax 70 MG] 70 mg PO WEEKLY 09/01/17 [History] Ergocalciferol (Vitamin D2) [Vitamin D] 50,000 unit PO WEEKLY 09/01/17 [History] Furosemide 20 mg [Lasix 20 mg] 20 mg PO DAILY 09/01/17 [History] Insulin Aspart [NovoLOG Insulin] 18 units SQ TIDWM 09/01/17 [History] Levothyroxine Sodium 50 Mcg [Synthroid 50 Mcg] 50 mcg PO DAILY 09/01/17 [History] Pravastatin Sodium 80 mg PO HS 09/01/17 [History] Clopidogrel Bisulfate 75 mg [PLAVIX 75 MG Tablet] 75 mg PO HS 10/12/18 [History] Nitroglycerin 0.4 mg Tablet [Nitrostat 0.4 MG Tablet] 0.4 mg SL Q5MIN PRN MR X 3 PRN 10/12/18 [History] Amlodipine Besylate 5 mg [Norvasc 5 mg] 10 mg PO QHS 11/22/20 [History] Aripiprazole 10 mg [Abilify 10 MG] 10 mg PO DAILY 11/22/20 [History] Aspirin EC 81 mg [Ecotrin 81 mg] 81 mg PO DAILY 11/22/20 [History] Carbidopa/Levodopa [Carbidopa-Levo 25-100 Tab] 1.5 tab PO TID 11/22/20 [History] Insulin Glargine,Hum.rec.anlog [Lantus Solostar] 20 unit SQ HS 11/22/20 [History] PARoxetine HCL [Paroxetine HCl] 40 mg PO DAILY 11/22/20 [History] Hx Tetanus, Diphtheria Vaccination/Date Given: No Hx Influenza Vaccination/Date Given: Yes Hx Pneumococcal Vaccination/Date Given: No Travel Risk - International Travel Have you traveled outside of the country in past 3 weeks: No - Coronavirus Screening Are you exhibiting any of the following symptoms?: No Close contact with a COVID-19 positive Pt in past 14-21 Days: No - Vaccine Status Have you recieved a Covid-19 vaccination: No - Review of Systems Constitutional: Weakness Eyes: No Symptoms Ears, Nose, & Throat: No Symptoms Respiratory: No Symptoms Cardiac: No Symptoms Abdominal/Gastrointestinal: No Symptoms Genitourinary Symptoms: No Symptoms Musculoskeletal: No Symptoms Skin: No Symptoms Neurological: Dizziness, Other (Unsteady on her feet) Psychological: No Symptoms Endocrine: No Symptoms Hematologic/Lymphatic: No Symptoms Immunological/Allergic: No Symptoms All Other Systems: Reviewed and Negative - Past Medical History Pertinent Past Medical History: Yes Neurological History: Migraines, Peripheral Neuropathy ENT History: Cataracts Cardiac History: Coronary Artery Disease, Hypertension, Peripheral Vascular Disease Respiratory History: COPD, Pneumonia Endocrine Medical History: Diabetes Type II, Hypothyroidism Musculoskeletal History: Arthritis GI Medical History: No Pertinent History History: No Pertinent History Psycho-Social History: Depression Female Reproductive Disorders: Fibroids - Past Surgical History Past Surgical History: Yes Neuro Surgical History: No Pertinent History Cardiac: No Pertinent History, Cardiac Catheterization, Cardiac Stent, Vascular Surgery Respiratory: No Pertinent History Gastrointestinal: No Pertinent History Genitourinary: No Pertinent History Musculoskeletal: Joint Replacement, Orthopedic Surgery Female Surgical History: Section, Hysterectomy Other Surgical History: stent placed to l leg, priti. knee replacement, left femur fx with hdwe placed,right hip repair with hdwe placed - Social History Smoking Status: Former smoker How long have you smoked: 45 Exposure to second hand smoke: No Drug Use: none Patient Lives Alone: No - Nursing Vital Signs Nursing Vital Signs: Initial Vital Signs Temperature 96.6 F 09/19/21 16:04 Pulse Rate 98 H 09/19/21 16:04 Respiratory Rate 11 L 09/19/21 16:04 Blood Pressure 138/83 09/19/21 16:04 O2 Sat by Pulse Oximetry 98 09/19/21 16:04 Pain Scale Pain Intensity 0 - Physical Exam General Appearance: no apparent distress, alert, anxiety, obese Eye Exam: PERRL/EOMI, eyes nml inspection Ears, Nose, Throat Exam: normal ENT inspection, moist mucous membranes Neck Exam: normal inspection, non-tender, supple, full range of motion Respiratory Exam: normal breath sounds, lungs clear, airway intact, No chest tenderness, No respiratory distress Cardiovascular Exam: regular rate/rhythm, normal heart sounds, normal peripheral pulses Gastrointestinal/Abdomen Exam: soft, normal bowel sounds, No tenderness Pelvic Exam: not done Rectal Exam: not done Back Exam: normal inspection, normal range of motion, No CVA tenderness, No vertebral tenderness Extremity Exam: normal inspection, normal range of motion, pelvis stable Neurologic Exam: alert, oriented x 3, cooperative, 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, normal mood/affect, nml cerebellar function, nml station & gait, sensation nml Skin Exam: normal color, warm, dry Lymphatic Exam: No adenopathy SpO2 Interpretation: normal O2 Delivery: Room Air - Course Nursing assessment & vital signs reviewed: Yes Ordered Tests: Active Orders 24 hr Category Date Time Status IV Insertion STAT Care 09/19/21 16:11 Active HEAD WITHOUT CONTRAST [CT] Stat Exams 09/19/21 17:26 Taken BMP Stat Lab 09/19/21 16:26 Completed BMP Stat Lab 09/19/21 17:56 Completed BMP Stat Lab 09/19/21 21:00 Completed POTASSIUM, URINE RANDOM Stat Lab 09/19/21 16:55 Completed Sodium, Urine Stat Lab 09/19/21 16:55 Completed Transfer Order Routine Transfer 09/19/21 Ordered Medication Summary Generic Name Dose Route Start Last Admin Trade Name Freq PRN Reason Stop Dose Admin Sodium Chloride 500 mls @ 100 mls/hr 09/19/21 17:30 09/19/21 19:30 Sodium Chloride 3% Hypertonic IV 10/19/21 17:29 100 mls/hr .Q5H MICHAELA Infusion Sodium Chloride 500 mls @ 100 mls/hr 09/19/21 19:15 Sodium Chloride 3% Hypertonic IV 10/19/21 19:14 .Q5H MICHAELA Lab/Rad Data: Laboratory Result Diagrams 09/19/21 21:00 Laboratory Results 09/19/21 09/19/21 09/19/21 Range/Units 21:00 17:56 17:44 Sodium 118 L* 116 L* (137-145) mmol/L Potassium 4.7 4.9 (3.5-5.1) mmol/L Chloride 83 L 80 L (98-107) mmol/L Carbon Dioxide 30 29 (22-30) mmol/L Anion Gap 10.4 11.3 (5-15) MEQ/L BUN 21 H 21 H (7-17) mg/dL Creatinine 0.84 0.75 (0.52-1.04) mg/dL Estimated GFR > 60.0 > 60.0 ML/MIN Glucose 214 H 182 H (74-106) mg/dL Calcium 8.8 9.1 (8.4-10.2) mg/dL Urine Sodium (30-90) mmol/L Urine Potassium mmol/L Influenza Type A Ag NEGATIVE (NEGATIVE) Influenza Type B Ag NEGATIVE (NEGATIVE) RSV (PCR) NEGATIVE (Negative) SARS-CoV-2 (PCR) NEGATIVE (NEGATIVE) 09/19/21 09/19/21 Range/Units 16:55 16:26 Sodium 115 L* (137-145) mmol/L Potassium 4.6 (3.5-5.1) mmol/L Chloride 78 L (98-107) mmol/L Carbon Dioxide 28 (22-30) mmol/L Anion Gap 15.5 H (5-15) MEQ/L BUN 23 H (7-17) mg/dL Creatinine 0.79 (0.52-1.04) mg/dL Estimated GFR > 60.0 ML/MIN Glucose 194 H (74-106) mg/dL Calcium 9.1 (8.4-10.2) mg/dL Urine Sodium 24 L (30-90) mmol/L Urine Potassium 11.9 mmol/L Influenza Type A Ag (NEGATIVE) Influenza Type B Ag (NEGATIVE) RSV (PCR) (Negative) SARS-CoV-2 (PCR) (NEGATIVE) - Progress Progress: improved, re-examined Progress Note: 09/19/21 20:39 CAT scan of the head without contrast shows no acute intracranial findings. 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 09/19/21 21:34 Medical decision making: This patient is hemodynamically stable I reviewed this patient's history, laboratory reports and CAT scan of the head results with Dr. Mitchell Savage. We have given this patient to 100 mL boluses of 3% normal saline intravenously. We will now place her in observation in the hospital, provide her with normal saline 100 mL/h intravenously, repeat a BMP in the morning and place the patient on 1.5 L fluid restriction. Discussed with : Jose Counseled pt/family regarding: lab results, diagnosis, rad results - Departure Departure Disposition: Observation Clinical Impression: Hyponatremia Condition: Stable Critical Care Time: No Referrals: ALFREDITO HURTADO [Primary Care Provider] - Follow up/PCP as directed
[2021-09-19 16:52] LABS: ANION GAP 15.5 MEQ/L (5-15); BLOOD UREA NITROGEN 23 mg/dL (7-17); CHLORIDE 78 mmol/L (98-107); Calcium 9.1 mg/dL (8.4-10.2); Carbon Dioxide 28 mmol/L (22-30); Creatinine 1 0.79 mg/dL (0.52-1.04); EST GLOMERULAR FILTRATION RATE > 60.0 ML/MIN; Glucose 194 mg/dL (74-106); Potassium 4.6 mmol/L (3.5-5.1)
[2021-09-19 17:10] LABS: SODIUM 115 mmol/L (137-145)
[2021-09-19 18:02] LABS: POTASSIUM, URINE RANDOM 11.9 mmol/L
[2021-09-19 18:21] LABS: ANION GAP 11.3 MEQ/L (5-15); BLOOD UREA NITROGEN 21 mg/dL (7-17); CHLORIDE 80 mmol/L (98-107); Calcium 9.1 mg/dL (8.4-10.2); Carbon Dioxide 29 mmol/L (22-30); Creatinine 1 0.75 mg/dL (0.52-1.04); EST GLOMERULAR FILTRATION RATE > 60.0 ML/MIN; Glucose 182 mg/dL (74-106); Potassium 4.9 mmol/L (3.5-5.1)
[2021-09-19 18:30] LABS: SODIUM 116 mmol/L (137-145)
[2021-09-19 18:35] LABS: INFLUENZA A NEGATIVE (NEGATIVE); INFLUENZA B NEGATIVE (NEGATIVE); RESPIRATORY SYNCTIAL VIRUS NEGATIVE (Negative); SARS-CoV-2 Xpert Express NEGATIVE (NEGATIVE)
[2021-09-19 21:18] LABS: ANION GAP 10.4 MEQ/L (5-15); BLOOD UREA NITROGEN 21 mg/dL (7-17); CHLORIDE 83 mmol/L (98-107); Calcium 8.8 mg/dL (8.4-10.2); Carbon Dioxide 30 mmol/L (22-30); Creatinine 1 0.84 mg/dL (0.52-1.04); EST GLOMERULAR FILTRATION RATE > 60.0 ML/MIN; Glucose 214 mg/dL (74-106); Potassium 4.7 mmol/L (3.5-5.1)
[2021-09-19 21:21] LABS: SODIUM 118 mmol/L (137-145)
--- NOTE | 2021-09-19 22:22 | XRAY ---
Indication: Dizziness. Unsteadiness. Multiple contiguous axial images obtained through the head without contrast. Comparison: None Age-appropriate global atrophy and mild periventricular degenerative micro-ischemia bilaterally. Left devin demonstrates 7 mm remote infarct. No acute intracranial hemorrhage, abnormal extra-axial fluid collection, or mass effect. Fourth ventricle is midline without hydrocephalus. Bony calvarium intact. Visualized paranasal sinuses and mastoid air cells are clear. Impression: Tiny left devin remote infarct. Otherwise nonacute senile brain. Comment: Preliminary interpretation made by [facility]. No critical discrepancy.
[2021-09-19] MEDS ORDERED: Zofran 4 MG/2 ML VIAL IV PRN (22:40)
[2021-09-19] MEDS ORDERED: Sodium Chloride 0.9% 1000 ML 1,000 ML IV SCH (22:40)
[2021-09-20] MEDS ORDERED: Lasix 40 MG PO ONE (00:51)
[2021-09-20 07:13] LABS: ANION GAP 11.7 MEQ/L (5-15); Calcium 8.9 mg/dL (8.4-10.2); Creatinine 1 0.99 mg/dL (0.52-1.04); EST GLOMERULAR FILTRATION RATE 58.1 ML/MIN; Potassium 4.8 mmol/L (3.5-5.1)
[2021-09-20] MEDS: HUMULIN R SQ PRN ×3 (07:50→17:31)
--- NOTE | 2021-09-20 11:38 | PCM.HP ---
History of Present Illness - Chief Complaint Chief Complaint: Symptomatic hyponatremia History of Present Illness: is a 76 year old female pt of mine from [facility] with COPD, Parkinson's disease, DM on insulin, HTN, hypothyroid, OA, hx colon ca who was admitted through ER with hyponatremia. She has had chronic hyponatremia off and on since 2017 per our records but last night it was down to 116. She was c/o 1d of dizziness and unsteadiness which worsened throughout the day. Her CT head was nonacute. She was given three 100mL boluses of 3% saline, then started on NS at 100mL/hr. She is on 1.5 L fluid restriction. Said she was drinking a lot at home because she was thirsty. - Review of Systems Respiratory: Cough (chronic, but breathing has been good) Neurological: Dizziness Psychological: No Suicidal Ideations, No Homicidal Ideations Endocrine: Polydipsia All Other Systems: Reviewed and Negative Medications & Allergies Home Medications: Home Medication List Alendronate Sodium 70 mg [Fosamax 70 MG] 70 mg PO WEEKLY 09/01/17 [History Confirmed 09/19/21] Ergocalciferol (Vitamin D2) [Vitamin D] 50,000 unit PO WEEKLY 09/01/17 [History Confirmed 09/19/21] Furosemide 20 mg [Lasix 20 mg] 40 mg PO BID 09/01/17 [History Confirmed 09/19/21] Insulin Aspart [NovoLOG Insulin] 18 units SQ TIDWM 09/01/17 [History Confirmed 03/13/21] Levothyroxine Sodium 50 Mcg [Synthroid 50 Mcg] 50 mcg PO DAILY 09/01/17 [History Confirmed 09/19/21] Pravastatin Sodium 80 mg PO DAILY 09/01/17 [History Confirmed 09/19/21] Clopidogrel Bisulfate 75 mg [PLAVIX 75 MG Tablet] 75 mg PO DAILY 10/12/18 [History Confirmed 09/19/21] Nitroglycerin 0.4 mg Tablet [Nitrostat 0.4 MG Tablet] 0.4 mg SL Q5MIN PRN MR X 3 PRN 10/12/18 [History Confirmed 09/19/21] Aripiprazole 10 mg [Abilify 10 MG] 10 mg PO DAILY 11/22/20 [History Confirmed 09/19/21] Aspirin EC 81 mg [Ecotrin 81 mg] 81 mg PO DAILY 11/22/20 [History Confirmed 09/19/21] Carbidopa/Levodopa [Carbidopa-Levo 25-100 Tab] 1 tab PO TID 11/22/20 [History Confirmed 09/19/21] Insulin Glargine,Hum.rec.anlog [Lantus Solostar] 20 unit SQ HS 11/22/20 [History Confirmed 09/19/21] PARoxetine HCL [Paroxetine HCl] 40 mg PO DAILY 11/22/20 [History Confirmed 09/19/21] Famotidine 20 mg [Pepcid 20 MG] 20 mg PO BID 09/19/21 [History Confirmed 09/19/21] Lisinopril 10 mg [Zestril 10 MG] 10 mg PO DAILY 09/19/21 [History Confirmed 09/19/21] Allergies/Adverse Reactions: Allergies Allergy/AdvReac Type Severity Reaction Status Date / Time acetaminophen [From Lortab] Allergy Mild Nausea Verified 09/19/21 16:18 alprazolam [From Xanax] Allergy Mild Verified 09/19/21 23:30 hydrocodone bitartrate Allergy Mild Verified 09/19/21 16:18 [From Lortab] - Past Medical History Past Medical History: Yes Neurological History: Migraines, Peripheral Neuropathy ENT History: Cataracts Cardiac History: Coronary Artery Disease, Hypertension, Peripheral Vascular Disease Respiratory History: COPD, Pneumonia Endocrine Medical History: Diabetes Type II, Hypothyroidism Musculoskelatal History: Arthritis GI Medical History: No Pertinent History History: No Pertinent History Pyscho-Social History: Depression Reproductive Disorders: Fibroids Comment: Parkinsons - Female History Are you now?: No - Past Surgical History Past Surgical History: Yes Neuro Surgical History: No Pertinent History Cardiac History: No Pertinent History, Cardiac Catheterization, Cardiac Stent, Vascular Surgery Respiratory Surgery: No Pertinent History GI Surgical History: No Pertinent History Genitourinary Surgical Hx: No Pertinent History Musculskeletal Surgical Hx: Joint Replacement, Orthopedic Surgery Female Surgical History: Section, Hysterectomy Other Surgical History: stent placed to l leg, priti. knee replacement, left femur fx with hdwe placed,right hip repair with hdwe placed, right shoulder joint repair - Social History Smoking Status: Former smoker How long have you smoked: 50 yrs Exposure to second hand smoke: Yes Alcohol: None Drug Use: none - Physical Exam Vital Signs: Vital Signs - 24 hr Temp Pulse Resp BP Pulse Ox 09/20/21 08:24 96 09/20/21 08:00 97.7 F 78 18 121/55 96 09/20/21 04:00 97.0 F 62 22 120/79 98 09/20/21 00:00 18 09/19/21 23:40 76 18 95 09/19/21 23:01 97 F 73 18 125/56 94 L 09/19/21 21:00 82 18 140/63 98 09/19/21 20:00 64 18 121/55 100 09/19/21 19:11 100 H 19 97 09/19/21 18:12 93 H 17 151/63 95 09/19/21 17:10 104 H 19 169/93 98 09/19/21 16:04 96.6 F 98 H 11 L 138/83 98 General Appearance: no apparent distress, obese Neurologic Exam: alert, oriented x 3, cooperative Eye Exam: eyes nml inspection Ears, Nose, Throat Exam: moist mucous membranes Neck Exam: normal inspection, non-tender, No lymphadenopathy Respiratory Exam: normal breath sounds, lungs clear, prolonged expirations, No crackles/rales, No rhonchi, No wheezing Cardiovascular Exam: normal heart sounds, irregular, No murmur Gastrointestinal/Abdomen Exam: soft, normal bowel sounds, No tenderness, No distention, No mass, No guarding, No rebound Back Exam: normal inspection, No rash Extremity Exam: normal inspection, No pedal edema, No swelling Skin Exam: normal color, warm, dry, No rash Results - Labs Lab/Micro Results: Lab Results-Last 24 Hours 09/19/21 09/19/21 09/19/21 Range/Units 16:26 16:55 17:44 Sodium 115 L* (137-145) mmol/L Potassium 4.6 (3.5-5.1) mmol/L Chloride 78 L (98-107) mmol/L Carbon Dioxide 28 (22-30) mmol/L Anion Gap 15.5 H (5-15) MEQ/L BUN 23 H (7-17) mg/dL Creatinine 0.79 (0.52-1.04) mg/dL Estimated GFR > 60.0 ML/MIN Glucose 194 H (74-106) mg/dL POC Glucometer (74 to 106) mg/dL Calcium 9.1 (8.4-10.2) mg/dL Urine Sodium 24 L (30-90) mmol/L Urine Potassium 11.9 mmol/L Influenza Type A Ag NEGATIVE (NEGATIVE) Influenza Type B Ag NEGATIVE (NEGATIVE) RSV (PCR) NEGATIVE (Negative) SARS-CoV-2 (PCR) NEGATIVE (NEGATIVE) 09/19/21 09/19/21 09/20/21 Range/Units 17:56 21:00 06:10 Sodium 116 L* 118 L* 121 L (137-145) mmol/L Potassium 4.9 4.7 4.8 (3.5-5.1) mmol/L Chloride 80 L 83 L 84 L (98-107) mmol/L Carbon Dioxide 29 30 29 (22-30) mmol/L Anion Gap 11.3 10.4 11.7 (5-15) MEQ/L BUN 21 H 21 H 25 H (7-17) mg/dL Creatinine 0.75 0.84 0.99 (0.52-1.04) mg/dL Estimated GFR > 60.0 > 60.0 58.1 ML/MIN Glucose 182 H 214 H 174 H (74-106) mg/dL POC Glucometer (74 to 106) mg/dL Calcium 9.1 8.8 8.9 (8.4-10.2) mg/dL Urine Sodium (30-90) mmol/L Urine Potassium mmol/L Influenza Type A Ag (NEGATIVE) Influenza Type B Ag (NEGATIVE) RSV (PCR) (Negative) SARS-CoV-2 (PCR) (NEGATIVE) 09/20/21 09/20/21 Range/Units 07:57 11:26 Sodium (137-145) mmol/L Potassium (3.5-5.1) mmol/L Chloride (98-107) mmol/L Carbon Dioxide (22-30) mmol/L Anion Gap (5-15) MEQ/L BUN (7-17) mg/dL Creatinine (0.52-1.04) mg/dL Estimated GFR ML/MIN Glucose (74-106) mg/dL POC Glucometer 185 H 192 H (74 to 106) mg/dL Calcium (8.4-10.2) mg/dL Urine Sodium (30-90) mmol/L Urine Potassium mmol/L Influenza Type A Ag (NEGATIVE) Influenza Type B Ag (NEGATIVE) RSV (PCR) (Negative) SARS-CoV-2 (PCR) (NEGATIVE) Accuchecks Date 09/20/21 Date 09/20/21 Time 07:57 Time 08:01 - Radiology Impressions Radiology Exams & Impressions: Radiology Procedures Category Date Time Status HEAD WITHOUT CONTRAST [CT] Stat Exams 09/19/21 17:26 Completed - Other Procedures and Tests Respiratory Therapy 09/19/21 23:48 Oxygen NASAL CANNULA 2 lpm Assessment/Plan (1) Hyponatremia Current Visit: Yes Status: Acute Assessment & Plan: improved. I have decreased her SSRI from 40mg to 20mg/d; may need to add a second agent if it appears to be affecting her sodium. Code(s): E87.1 - HYPO-OSMOLALITY AND HYPONATREMIA (2) Arrhythmia Current Visit: Yes Status: Acute Qualifiers: Arrhythmia type: unspecified cardiac arrhythmia Qualified Code(s): I49.9 - Cardiac arrhythmia, unspecified Assessment & Plan: will order EKG Code(s): I49.9 - CARDIAC ARRHYTHMIA, UNSPECIFIED (3) CAD (coronary artery disease) Current Visit: No Status: Chronic Qualifiers: Assessment & Plan: on asa and plavix Code(s): I25.10 - ATHSCL HEART DISEASE OF [place] CORONARY ARTERY W/O ANG PCTRS (4) Diabetes mellitus Current Visit: No Status: Chronic Qualifiers: Diabetes mellitus type: type 2 Diabetes mellitus intermediate insulin use: with ceramist use Diabetes mellitus complication status: with hyperglycemia Qualified Code(s): E11.65 - Type 2 diabetes mellitus with hyperglycemia; 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 Code(s): E11.9 - TYPE 2 DIABETES MELLITUS WITHOUT COMPLICATIONS (5) Hypertension Current Visit: No Status: Chronic Qualifiers: Hypertension type: primary hypertension Qualified Code(s): I10 - Essential (primary) hypertension Code(s): I10 - ESSENTIAL (PRIMARY) HYPERTENSION (6) Hypothyroid Current Visit: No Status: Chronic Qualifiers: Hypothyroidism type: acquired Code(s): E03.9 - HYPOTHYROIDISM, UNSPECIFIED (7) Morbid obesity Current Visit: No Status: Chronic Code(s): E66.01 - MORBID (SEVERE) OBESITY DUE TO EXCESS CALORIES (8) Osteoarthritis Current Visit: No Status: Chronic Qualifiers: Osteoarthritis location: multiple joints Osteoarthritis type: unspecified Qualified Code(s): M15.9 - Polyosteoarthritis, unspecified Code(s): M19.90 - UNSPECIFIED OSTEOARTHRITIS, UNSPECIFIED SITE (9) Parkinsons disease Current Visit: Yes Status: Chronic Code(s): G20 - PARKINSON'S DISEASE
[2021-09-20] MEDS ORDERED: Nitrostat 0.4 MG Tablet SL PRN (11:55)
[2021-09-20] MEDS ORDERED: NON-FORMULARY ITEM (Insulin Aspart** [Novolog Insulin] 100 UNITS/ML Vial) SQ SCH (12:00)
[2021-09-20] MEDS: Sodium Chloride 0.9% 1000 ML 1,000 ML IV SCH (12:28)
[2021-09-20] MEDS: SYNTHROID 50 MCG PO SCH (14:41)
[2021-09-20] MEDS: Sinemet 25/100 MG PO SCH ×2 (14:42→23:34)
[2021-09-20] MEDS: ZOCOR 20MG PO SCH (14:42)
[2021-09-20] MEDS: Abilify 10 MG PO SCH (14:42)
[2021-09-20] MEDS: ECOTRIN 81 MG PO SCH (14:42)
[2021-09-20] MEDS: PLAVIX 75 MG Tablet PO SCH (14:42)
[2021-09-20] MEDS: Lasix 40 MG PO SCH (16:53)
[2021-09-20] MEDS: HUMALOG SQ SCH (17:35)
[2021-09-20] MEDS ORDERED: Lantus Insulin SQ SCH (22:00)
[2021-09-20] MEDS ORDERED: NON-FORMULARY ITEM (Insulin Glargine,Hum.Rec.Anlog [Lantus Solostar] 100 UNIT/ML Ml) SQ SCH (22:00)
[2021-09-20] MEDS ORDERED: LASIX 20 MG PO SCH (22:00)
[2021-09-20] MEDS: Pepcid 20 MG PO SCH (23:34)
[2021-09-21] MEDS: Sodium Chloride 0.9% 1000 ML 1,000 ML IV SCH (03:41)
[2021-09-21 06:16] LABS: ANION GAP 11.4 MEQ/L (5-15); BLOOD UREA NITROGEN 28 mg/dL (7-17); CHLORIDE 93 mmol/L (98-107); Calcium 8.8 mg/dL (8.4-10.2); Carbon Dioxide 28 mmol/L (22-30); Creatinine 1 0.85 mg/dL (0.52-1.04); EST GLOMERULAR FILTRATION RATE > 60.0 ML/MIN; Glucose 143 mg/dL (74-106); Potassium 4.5 mmol/L (3.5-5.1); SODIUM 128 mmol/L (137-145)
[2021-09-21] MEDS: HUMALOG SQ SCH ×2 (08:14→12:38)
[2021-09-21] MEDS: ECOTRIN 81 MG PO SCH (08:15)
[2021-09-21] MEDS: Sinemet 25/100 MG PO SCH ×2 (08:15→16:25)
[2021-09-21] MEDS: Pepcid 20 MG PO SCH (08:16)
[2021-09-21] MEDS: Abilify 10 MG PO SCH (08:16)
[2021-09-21] MEDS: PLAVIX 75 MG Tablet PO SCH (08:16)
[2021-09-21] MEDS: SYNTHROID 50 MCG PO SCH (08:16)
[2021-09-21] MEDS: Lasix 40 MG PO SCH (08:16)
[2021-09-21] MEDS: ZOCOR 20MG PO SCH (08:16)
[2021-09-21] MEDS ORDERED: NON-FORMULARY ITEM (Pravastatin Sodium [Pravastatin Sodium] 40 MG Tablet) PO SCH (10:00)
[2021-09-21] MEDS ORDERED: Paxil 20 MG PO SCH (10:00)
--- NOTE | 2021-09-21 15:00 | PCM.DS ---
Discharge Summary Date of Admission: 09/20/21 11:33 Admitting Physician: ALFREDITO HURTADO Primary Care Provider: ALFREDITO HURTADO Allergies Allergies acetaminophen [From Lortab] Allergy (Mild, Verified 09/19/21 16:18) Nausea alprazolam [From Xanax] Allergy (Mild, Verified 09/19/21 23:30) Altered mental status-per pt hydrocodone bitartrate [From Lortab] Allergy (Mild, Verified 09/19/21 16:18) Hospital Summary - Hospital Course Hospital Course: Pt is a 76 yo pt of mine with Parkinson's disease, CHF, COPD, CAD, DM, MD, HTN, hypothyroidism who was admitted through ER with hyponatremia when she came in c/o dizziness. Her Na was initially 117, and dropped to 116 in the first few hours. She was given 3% NS in three 100mL boluses, then started on NS. Fluids were restricted to 1.5L daily. Her sodium is 128 this morning (pt has chronic low sodium). Today she is feeling good, no dizziness. Tolerating po. Her SSRI was changed from 40mg po daily to 20mg po daily as this can cause a decrease in sodium. She will maintain a fluid restriction at home for at least the next 1 week then recheck BMP. F/u with me in 1 week. - Vitals & Intake/Output Vital Signs: Vital Signs Temperature 96.0 F 09/21/21 11:38 Pulse Rate 60 09/21/21 11:38 Respiratory Rate 16 09/21/21 12:00 Blood Pressure 115/49 09/21/21 11:38 O2 Sat by Pulse Oximetry 96 09/21/21 11:38 Intake & Output: Intake & Output 09/19/21 09/20/21 09/21/21 09/22/21 11:59 11:59 11:59 11:59 Intake Total 340 1882 Output Total 200 5850 Balance 140 -3968 Weight 117.9 kg 117 kg - Lab Result Diagrams: 09/21/21 05:30 Lab Results-Last 24 Hrs: Lab Results-Last 24 Hours 09/20/21 09/20/21 09/20/21 Range/Units 16:34 20:58 Unknown Sodium (137-145) mmol/L Potassium (3.5-5.1) mmol/L Chloride (98-107) mmol/L Carbon Dioxide (22-30) mmol/L Anion Gap (5-15) MEQ/L BUN (7-17) mg/dL Creatinine (0.52-1.04) mg/dL Estimated GFR ML/MIN Glucose (74-106) mg/dL POC Glucometer 178 H 149 H (74 to 106) mg/dL Calcium (8.4-10.2) mg/dL Stool Occult Blood NEGATIVE (NEGATIVE) 09/21/21 09/21/21 09/21/21 Range/Units 05:30 06:56 11:15 Sodium 128 L D (137-145) mmol/L Potassium 4.5 (3.5-5.1) mmol/L Chloride 93 L (98-107) mmol/L Carbon Dioxide 28 (22-30) mmol/L Anion Gap 11.4 (5-15) MEQ/L BUN 28 H (7-17) mg/dL Creatinine 0.85 (0.52-1.04) mg/dL Estimated GFR > 60.0 ML/MIN Glucose 143 H (74-106) mg/dL POC Glucometer 145 H 115 H (74 to 106) mg/dL Calcium 8.8 (8.4-10.2) mg/dL Stool Occult Blood (NEGATIVE) Micro Results-Entire Visit: Accuchecks Date 09/21/21 Date 09/21/21 Date 09/20/21 Time 11:39 Time 07:22 - Radiology Exams Ordered Rad Exams-Entire Visit: Radiology Procedures Category Date Time Status HEAD WITHOUT CONTRAST [CT] Stat Exams 09/19/21 17:26 Completed - Procedures and Test Procedures and Tests throughout Hospitalization: Therapy Orders & Screens 09/19/21 23:28 RT Screen per Nursing Assess ONCE Comment: Protocol Order Physician Instructions: Greater than 3 points order RT Admission Screen Reason For Exam: Triggered on Admission Diagnosis: Symptomatic hyponatremia Diagnosis: Symptomatic hyponatremia Pneumonia: No Home O2: Yes Asthma: No CHF: Yes Home CPAP/BIPAP: No Home Nebs/MDI: No Total Points: 8 09/19/21 23:48 Oxygen NASAL CANNULA 2 lpm Comment: Diagnosis: Symptomatic hyponatremia Respiratory Therapy Assessment DAILY Comment: Diagnosis: Symptomatic hyponatremia 09/20/21 11:40 EKG ROUTINE Comment: Diagnosis: Symptomatic hyponatremia Discharge Exam General Appearance: no apparent distress, obese Neurologic Exam: oriented x 3, cooperative Eye Exam: eyes nml inspection Ears, Nose, Throat Exam: moist mucous membranes Neck Exam: normal inspection Respiratory Exam: normal breath sounds, lungs clear, No crackles/rales, No rhonchi, No wheezing, No stridor Cardiovascular Exam: regular rate/rhythm, normal heart sounds, No murmur Gastrointestinal/Abdomen Exam: soft, No tenderness, No distention, No mass, No guarding, No rebound Back Exam: normal inspection, No rash Extremity Exam: normal inspection, No pedal edema, No swelling Skin Exam: normal color, warm, dry, No rash Final Diagnosis/Problem List - Final Discharge Diagnosis/Problem (1) Hyponatremia Current Visit: Yes Status: Acute Assessment & Plan: much improved (chronically, has been low). I think a combination between her SSRI, possibly, and high fluid low protein diet. Continue water restriction x 1 week; recheck BMP then. Code(s): E87.1 - HYPO-OSMOLALITY AND HYPONATREMIA (2) Arrhythmia Current Visit: Yes Status: Resolved Assessment & Plan: not apparent today Code(s): I49.9 - CARDIAC ARRHYTHMIA, UNSPECIFIED (3) CAD (coronary artery disease) Current Visit: No Status: Chronic Code(s): I25.10 - ATHSCL HEART DISEASE OF [place] CORONARY ARTERY W/O ANG PCTRS (4) Diabetes mellitus Current Visit: No Status: Chronic Code(s): E11.9 - TYPE 2 DIABETES MELLITUS WITHOUT COMPLICATIONS (5) Hypertension Current Visit: No Status: Chronic Code(s): I10 - ESSENTIAL (PRIMARY) HYPERTENSION (6) Hypothyroid Current Visit: No Status: Chronic Code(s): E03.9 - HYPOTHYROIDISM, UNS PECIFIED (7) Morbid obesity Current Visit: No Status: Chronic Code(s): E66.01 - MORBID (SEVERE) OBESITY DUE TO EXCESS CALORIES (8) Osteoarthritis Current Visit: No Status: Chronic Code(s): M19.90 - UNSPECIFIED OSTEOARTHRITIS, UNSPECIFIED SITE (9) Parkinsons disease Current Visit: Yes Status: Chronic Code(s): G20 - PARKINSON'S DISEASE - Discharge Disposition: Home, Self-Care Condition: Good Prescriptions: New Paroxetine HCl 20 mg [Paxil 20 MG] 20 mg PO DAILY #30 tablet Continue Insulin Aspart [NovoLOG Insulin] 18 units SQ TIDWM Alendronate Sodium 70 mg [Fosamax 70 MG] 70 mg PO WEEKLY Levothyroxine Sodium 50 Mcg [Synthroid 50 Mcg] 50 mcg PO DAILY Pravastatin Sodium 80 mg PO DAILY Furosemide 20 mg [Lasix 20 mg] 40 mg PO BID Ergocalciferol (Vitamin D2) [Vitamin D] 50,000 unit PO WEEKLY Clopidogrel Bisulfate 75 mg [PLAVIX 75 MG Tablet] 75 mg PO DAILY Nitroglycerin 0.4 mg Tablet [Nitrostat 0.4 MG Tablet] 0.4 mg SL Q5MIN PRN MR X 3 PRN PRN Reason: Chest Pain Aspirin EC 81 mg [Ecotrin 81 mg] 81 mg PO DAILY Insulin Glargine,Hum.rec.anlog [Lantus Solostar] 20 unit SQ HS Carbidopa/Levodopa [Carbidopa-Levo 25-100 Tab] 1 tab PO TID Aripiprazole 10 mg [Abilify 10 MG] 10 mg PO DAILY Famotidine 20 mg [Pepcid 20 MG] 20 mg PO BID Lisinopril 10 mg [Zestril 10 MG] 10 mg PO DAILY Discontinued PARoxetine HCL [Paroxetine HCl] 40 mg PO DAILY Instructions: Hyponatremia (DC), Fluid Restricted Diet Forms: Discharge Instructions
[2021-09-22 17:03] VITALS: BP 115/49; PULSE 60; O2SAT 96
== END 2021-09-21 16:28 | disposition home or self-care (01) | DRG 641 ==
LOC: ED 15:51 → MED SURG 22:40 → OBSVTOIN 09-20 11:33 → INTOOBSV 09-20 11:36
PROVIDERS: ADMIT Family Medicine; ATTEND Family Medicine
DX: E87.1 Hypo-osmolality and hyponatremia (principal); I49.9 Cardiac arrhythmia, unspecified; I25.10 Atherosclerotic heart disease of native coronary artery without angina pectoris; E11.9 Type 2 diabetes mellitus without complications; I10 Essential (primary) hypertension; E03.9 Hypothyroidism, unspecified; G20 Parkinson's disease; R53.1 Weakness; R42 Dizziness and giddiness; I73.9 Peripheral vascular disease, unspecified; E66.01 Morbid (severe) obesity due to excess calories; M19.90 Unspecified osteoarthritis, unspecified site; Z79.899 Other long term (current) drug therapy; Z87.891 Personal history of nicotine dependence; Z20.828 Contact with and (suspected) exposure to other viral communicable diseases
CPT/HCPCS: 0241U; 36000; 36415; 70450; 80048; 82947; 84133; 84300; 93005; 94760; 99284; G0328; G0378; 82274; J1815; J1817; A9270-GY

== ENCOUNTER 2023-08-24 11:15 | Observation (INO) | payer MEDICARE ==
--- NOTE | 2023-08-24 11:47 | ERPHSYRPT ---
- History of Present Illness Time Seen by Provider: 08/24/23 11:35 Source: patient Exam Limitations: no limitations Patient Subjective Stated Complaint: pt states she had covid a month ago. pt states that 2 days ago she began to get short of breath Triage Nursing Assessment: pt came into er via ambulance; pt was transferred to cot per staff; pt is axo x4; c/o shortness of breath; audible wheezing present; expiratory wheezing present; pt states SOB; pt denies cough; skin PDW; tachycardic Physician History: Patient is 78-year-old female with a history of COPD former smoker presents to our ED via EMS for evaluation of shortness of breath and wheezing. Patient diagnosed with COVID 1 month ago. Daughter at bedside is the primary historian. She reports that patient never fully recovered from COVID. Patient has been short of breath since her diagnosis 1 month ago. However shortness of breath worsened over the past 2 days. No associated chest pain. No nausea vomiting or diaphoresis. Symptoms are moderate in intensity. No specific worsening or improving factors. They voiced no other complaints or concerns at this time. Patient received a DuoNeb and 125 mg of Solu-Medrol by EMS just prior to arrival. Portions of this note were created with voice recognition technology. There may be grammatical, spelling, punctuation or sound alike errors Timing/Duration: day(s) (2 days) Activities at Onset: none Severity of Dyspnea-Max: moderate Severity of Dyspnea-Current: mild Possible Cause: occasional episodes Modifying Factors: Improves With: albuterol inhaler Associated Symptoms: cough, wheezing Allergies/Adverse Reactions: acetaminophen [From Lortab] Allergy (Mild, Verified 08/24/23 11:17) Nausea alprazolam [From Xanax] Allergy (Mild, Verified 08/24/23 11:17) Altered mental status-per pt hydrocodone bitartrate [From Lortab] Allergy (Mild, Verified 08/24/23 11:17) Home Medications: Alendronate Sodium 70 mg [Fosamax 70 MG] 70 mg PO WEEKLY 09/01/17 [Hi story] Ergocalciferol (Vitamin D2) [Vitamin D] 50,000 unit PO WEEKLY 09/01/17 [History] Insulin Aspart [NovoLOG Insulin] 18 units SQ TIDWM 09/01/17 [History] Levothyroxine Sodium 50 Mcg [Synthroid 50 Mcg] 50 mcg PO DAILY 09/01/17 [History] Pravastatin Sodium 80 mg PO DAILY 09/01/17 [History] Clopidogrel Bisulfate [PLAVIX Tablet] 75 mg PO DAILY 10/12/18 [History] Aripiprazole 10 mg [Abilify 10 MG] 10 mg PO DAILY 11/22/20 [History] Aspirin EC 81 mg [Ecotrin 81 mg] 81 mg PO DAILY 11/22/20 [History] Famotidine 20 mg [Pepcid 20 MG] 20 mg PO BID 09/19/21 [History] Lisinopril 10 mg [Zestril 10 MG] 10 mg PO DAILY 09/19/21 [History] Albuterol Common Canister [Ventolin Common Canister] 2 puff IH Q6HPRN PRN 07/21/23 [History] Amlodipine Besylate 5 mg [Norvasc 5 mg] 10 mg PO DAILY 07/21/23 [History] Carbidopa/Levodopa [Carbidopa-Levodopa 25-250 Tab] 1 each PO TID 07/21/23 [History] Fluoxetine HCl 20 mg [Prozac 20 MG] 40 mg PO DAILY 07/21/23 [History] Ferrous Sulfate [Iron] 325 mg PO DAILY 08/24/23 [History] Sertraline HCl 50 mg [Zoloft 50 mg Tablet] 50 mg PO DAILY 08/24/23 [History] Hx Tetanus, Diphtheria Vaccination/Date Given: No Hx Influenza Vaccination/Date Given: Yes Hx Pneumococcal Vaccination/Date Given: Yes Travel Risk - International Travel Have you traveled outside of the country in past 3 weeks: No - Coronavirus Screening Are you exhibiting any of the following symptoms?: No - Vaccine Status Have you recieved a Covid-19 vaccination: No - Review of Systems Constitutional: No Symptoms, No Fever, No Chills Eyes: No Symptoms Ears, Nose, & Throat: No Symptoms Respiratory: No Symptoms, No Cough, No Dyspnea Cardiac: No Symptoms, No Chest Pain, No Edema, No Syncope Abdominal/Gastrointestinal: No Symptoms, No Abdominal Pain, No Nausea, No Vom iting, No Diarrhea Genitourinary Symptoms: No Symptoms, No Dysuria Musculoskeletal: No Symptoms, No Back Pain, No Neck Pain Skin: No Symptoms, No Rash Neurological: No Symptoms, No Dizziness, No Focal Weakness, No Sensory Changes Psychological: No Symptoms Endocrine: No Symptoms Hematologic/Lymphatic: No Symptoms Immunological/Allergic: No Symptoms All Other Systems: Reviewed and Negative - Past Medical History Pertinent Past Medical History: Yes Neurological History: Migraines, Peripheral Neuropathy ENT History: Cataracts Cardiac History: Coronary Artery Disease, Hypertension, Peripheral Vascular Disease Respiratory History: COPD, Pneumonia Endocrine Medical History: Diabetes Type II, Hypothyroidism Musculoskeletal History: Arthritis GI Medical History: No Pertinent History History: No Pertinent History Psycho-Social History: Depression Female Reproductive Disorders: Fibroids Other Medical History: Parkinsons - Past Surgical History Past Surgical History: Yes Neuro Surgical History: No Pertinent History Cardiac: No Pertinent History, Cardiac Catheterization, Cardiac Stent, Vascular Surgery Respiratory: No Pertinent History Gastrointestinal: No Pertinent History Genitourinary: No Pertinent History Musculoskeletal: Joint Replacement, Orthopedic Surgery Female Surgical History: Section, Hysterectomy Other Surgical History: stent placed to l leg, priti. knee replacement, left femur fx with hdwe placed,right hip repair with hdwe placed, right shoulder joint repair - Social History Smoking Status: Former smoker How long have you smoked: 50 yrs Exposure to second hand smoke: Yes Drug Use: none Patient Lives Alone: No - Nursing Vital Signs Nursing Vital Signs: Initial Vital Signs Pulse Rate 98 H 08/24/23 11:15 Respiratory Rate 23 08/24/23 11:15 Blood Pressure 140/53 08/24/23 11:15 O2 Sat by Pulse Oximetry 94 L 08/24/23 11:15 Pain Scale Pain Intensity 0 - Physical Exam General Appearance: mild distress, alert Eye Exam: PERRL/EOMI, eyes nml inspection Ears, Nose, Throat Exam: hearing grossly normal, normal ENT inspection, normal pharynx Neck Exam: normal inspection, supple, full range of motion Respiratory Exam: respiratory distress (Hypoxia/respiratory distress), airway in tact, diminished breath sounds, wheezing Cardiovascular/Chest Exam: normal heart sounds, regular rate/rhythm Abdominal/Gastrointestinal Exam: soft, No tenderness, No distention, No mass Extremity Exam: non-tender, normal range of motion, normal inspection, no calf tenderness, no pedal edema Peripheral Pulses Exam: dorsalis-pedis (R): 2+, dorsalis-pedis (L): 2+ Neurologic Exam: alert, oriented x 3, 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 Cardiomegaly, hiatal hernia, remote T12 endplate fracture, osteopenia, spine arthritis, fatty liver, benign left adrenal mass) Ordered Tests: Active Orders 24 hr Category Date Time Status Flake [place] Helper STAT Care 08/24/23 12:03 Active EKG-ER Only STAT Care 08/24/23 12:02 Active IV Insertion STAT Care 08/24/23 12:02 Active Pulse Oximetry (ED) STAT Care 08/24/23 12:02 Active CHEST WITH CONTRAST [CT] Stat Exams 08/24/23 13:04 Completed BLOOD CULTURE Stat Lab 08/24/23 12:25 Received CBC W DIFF Stat Lab 08/24/23 12:07 Completed CMP Stat Lab 08/24/23 12:07 Completed D-DIMER QUANTITATIVE Stat Lab 08/24/23 12:07 Completed NT PRO BNPII Stat Lab 08/24/23 12:07 Completed TROPONIN Q4H Lab 08/24/23 12:07 Completed TROPONIN Q4H Lab 08/24/23 16:15 Ordered TROPONIN Q4H Lab 08/24/23 20:15 Ordered Respiratory Therapy Assessment DAILY RT 08/24/23 12:51 Active Transfer Order Routine Transfer 08/24/23 Ordered Medication Summary Discontinued Medications Generic Name Dose Route Start Last Admin Trade Name Freq PRN Reason Stop Dose Admin Albuterol Sulfate 2.5 mg 08/24/23 12:02 08/24/23 12:40 Albuterol Sulfate 2.5 Mg/3 Ml Neb IH 08/24/23 12:03 2.5 mg STAT ONE Administration Albuterol Sulfate Confirm 08/24/23 12:36 Albuterol Sulfate 2.5 Mg/3 Ml Neb Administered 08/24/23 12:37 Dose 2.5 mg IH .STK-MED ONE Ceftriaxone Sodium/Dextrose 2 g in 50 mls @ 100 mls/hr 08/24/23 12:04 08/24/23 12:47 Rocephin 2 Gm-D5w 50ml Bag IV 08/24/23 12:33 Infused STAT STA Infusion Azithromycin 500 mg in 250 mls @ 250 mls/hr 08/24/23 12:04 08/24/23 14:31 Zithromax 500 Mg/ 250 Ml Nacl Premix IV 08/24/23 13:03 Infused STAT STA Infusion Ceftriaxone Sodium/Dextrose Confirm 08/24/23 12:06 Rocephin 2 Gm-D5w 50ml Bag Administered 08/24/23 12:07 Dose 2 g in 50 mls @ ud IV .STK-MED ONE Azithromycin Confirm 08/24/23 12:56 Zithromax 500 Mg/ 250 Ml Nacl Premix Administered 08/24/23 12:57 Dose 500 mg in 250 mls @ ud IV .STK-MED ONE Lab/Rad Data: Laboratory Result Diagrams 08/24/23 12:07 08/24/23 12:07 Laboratory Results 08/24/23 08/24/23 08/24/23 Range/Units 12:10 12:07 12:07 WBC (4.0-10.5) x10^3/uL RBC (4.1-5.4) x10^6/uL Hgb (12.0-16.0) g/dL Hct (35-47) % MCV (78-100) fL MCH (26-32) pg MCHC (32-36) g/dL RDW (11.5-14.0) % Plt Count (150-450) x10^3/uL MPV (7.5-11.0) fL Gran % (36.0-66.0) % Immature Gran % (Auto) (0.00-0.4) % Nucleat RBC Rel Count (0.00-0.1) % Eos # (Auto) (0-0.5) x10^3/uL Immature Gran # (Auto) (0.00-0.03) x10^3u/L Absolute Lymphs (auto) (1.0-4.6) x10^3/uL Absolute Monos (auto) (0.0-1.3) x10^3/uL Absolute Nucleated RBC (0.00-0.01) x10^3u/L Lymphocytes % (24.0-44.0) % Monocytes % (0.0-12.0) % Eosinophils % (0.00-5.0) % Basophils % (0.0-0.4) % Absolute Granulocytes (1.4-6.9) x10^3/uL Basophils # (0-0.4) x10^3/uL D-Dimer (0.0-0.50) mg/L Sodium 122 L (137-145) mmol/L Potassium 4.4 (3.5-5.1) mmol/L Chloride 87 L (98-107) mmol/L Carbon Dioxide 26 (22-30) mmol/L Anion Gap 12.7 (5-15) MEQ/L BUN 17 (7-17) mg/dL Creatinine 0.69 (0.52-1.04) mg/dL Estimated GFR > 60.0 ML/MIN Glucose 191 H (74-106) mg/dL Calcium 8.4 (8.4-10.2) mg/dL Total Bilirubin 0.60 (0.2-1.3) mg/dL AST 24 (14-36) U/L ALT 13 (0-35) U/L Alkaline Phosphatase 89 (38-126) U/L Troponin I 0.013 (0.000-0.034) ng/mL NT-Pro-B Natriuret Pep 731 (<300) pg/mL Serum Total Protein 5.7 L (6.3-8.2) g/dL Albumin 3.3 L (3.5-5.0) g/dL Influenza Type A Ag NEGATIVE (NEGATIVE) Influenza Type B Ag NEGATIVE (NEGATIVE) RSV (PCR) NEGATIVE (NEGATIVE) SARS-CoV-2 (PCR) NEGATIVE (NEGATIVE) 08/24/23 08/24/23 Range/Units 12:07 12:07 WBC 12.0 H (4.0-10.5) x10^3/uL RBC 3.52 L (4.1-5.4) x10^6/uL Hgb 10.1 L (12.0-16.0) g/dL Hct 32.4 L (35-47) % MCV 92.0 (78-100) fL MCH 28.7 (26-32) pg MCHC 31.2 L (32-36) g/dL RDW 14.4 H (11.5-14.0) % Plt Count 268 (150-450) x10^3/uL MPV 9.5 (7.5-11.0) fL Gran % 85.5 H (36.0-66.0) % Immature Gran % (Auto) 1.0 H (0.00-0.4) % Nucleat RBC Rel Count 0.0 (0.00-0.1) % Eos # (Auto) 0.06 (0-0.5) x10^3/uL Immature Gran # (Auto) 0.12 H (0.00-0.03) x10^3u/L Absolute Lymphs (auto) 0.89 L (1.0-4.6) x10^3/uL Absolute Monos (auto) 0.63 (0.0-1.3) x10^3/uL Absolute Nucleated RBC 0.00 (0.00-0.01) x10^3u/L Lymphocytes % 7.4 L (24.0-44.0) % Monocytes % 5.2 (0.0-12.0) % Eosinophils % 0.5 (0.00-5.0) % Basophils % 0.4 (0.0-0.4) % Absolute Granulocytes 10.27 H (1.4-6.9) x10^3/uL Basophils # 0.05 (0-0.4) x10^3/uL D-Dimer 2.03 H* (0.0-0.50) mg/L Sodium (137-145) mmol/L Potassium (3.5-5.1) mmol/L Chloride (98-107) mmol/L Carbon Dioxide (22-30) mmol/L Anion Gap (5-15) MEQ/L BUN (7-17) mg/dL Creatinine (0.52-1.04) mg/dL Estimated GFR ML/MIN Glucose (74-106) mg/dL Calcium (8.4-10.2) mg/dL Total Bilirubin (0.2-1.3) mg/dL AST (14-36) U/L ALT (0-35) U/L Alkaline Phosphatase (38-126) U/L Troponin I (0.000-0.034) ng/mL NT-Pro-B Natriuret Pep (<300) pg/mL Serum Total Protein (6.3-8.2) g/dL Albumin (3.5-5.0) g/dL Influenza Type A Ag (NEGATIVE) Influenza Type B Ag (NEGATIVE) RSV (PCR) (NEGATIVE) SARS-CoV-2 (PCR) (NEGATIVE) - Progress Progress: improved Air Movement: fair Progress Note: 78-year-old female presents emergency department via EMS for evaluation of short ness of breath. Patient has a history of COPD. Patient has audible wheezing on physical examination. Patient was hypoxic at 90% upon arrival. Patient placed on 2 L nasal cannula. She does not require supplemental O2 normally. Diminished breath sounds. Mild tachypnea. Work-up reveals a leukocytosis of 12. Patient has a normal [place] anemia of 10. D-dimer positive. CTA chest negative for PE. Hyponatremia been observed on today's laboratory work-up. Patient received Solu-Medrol via EMS. She also received a DuoNeb in route. Upon arrival to our ED patient received an additional DuoNeb. Blood cultures obtained. Antibiotics administered. Patient reassessed. She feels much better however is not ready for discharge. Case discussed with Dr. Solorzano at 12:[address] Solorzano accepts admission to observation. Plan of care discussed with patient. She agrees to admission at [facility] for further evaluation and treatment. Portions of this note were created with voice recognition technology. There may be grammatical, spelling, punctuation or sound alike errors Complexity of problems addressed is high, severe exacerbation with hypoxia wheezing and labored breathing Critical care time is 1 hour. Critical care Vinnie : 1. Patient was then respiratory distress dressed with a hypoxia of 90% on room air. Patient normally does not require oxygen however s upplemental oxygen was applied. Patient received an immediate duo nebulizer treatment and 125 mg dose of Solu-Medrol in route via EMS. A second nebulizer treatment administered upon arrival to our ED. Supplemental oxygen administered as well. Patient requires hospitalization Complexity of data reviewed and analyzed extensive. Test ordered test reviewed. The results of the laboratory studies and imaging studies were analyzed and clinically correlated with history and physical examination. Patient reassessed. Management discussed with Dr. Solorzano at 12:[address] Solorzano accepts admission to observation. Risk of complication and or risk of morbidity/mortality of patient management is high. Patient received nebulizer treatment. Patient will require hospitalization for further evaluation and treatment. Time spent to admit patient is approximately 20 minutes. Vital stable. Plan of care established via shared decision making. Patient stabilized for transfer to floor/telemetry unit Portions of this note were created with voice recognition technology. There may be grammatical, spelling, punctuation or sound alike errors 08/24/23 14:53 Blood Culture(s) Obtained: Yes Antibiotics given: Yes Counseled pt/family regarding: lab results, diagnosis, rad results - Departure Departure Disposition: Home Clinical Impression: COPD exacerbation, Hypoxia, Leukocytosis, Normocytic anemia, Hyponatremia, Respiratory distress Condition: Stable Critical Care Time: Yes Critical Care Time(excluding separately billable procedures): Critical 30-74 mins Referrals: KIARA SHEPARD MD [Primary Care Provider] - Follow up/PCP as directed Instructions: Chronic Obstructive Pulmonary Disease
[2023-08-24] MEDS ORDERED: PROVENTIL 2.5 MG/3 ML NEB IH ONE ×2 (12:02→12:36)
[2023-08-24] MEDS ORDERED: ROCEPHIN 2 Gm-D5w 50ML BAG** 2 G/50 ML IVPB IV STA (12:04)
[2023-08-24] MEDS ORDERED: Zithromax 500 MG/ 250 ML NaCl Premix 500 MG/250 ML IVPB IV STA (12:04)
[2023-08-24] MEDS ORDERED: ROCEPHIN 2 Gm-D5w 50ML BAG** 2 G/50 ML IVPB IV ONE (12:06)
[2023-08-24 12:13] LABS: Absolute Neutrophil Ct (ANC) 10.27 x10^3/uL (1.4-6.9); BASOPHIL % 0.4 % (0.0-0.4); Basophil (Absolute #) 0.05 x10^3/uL (0-0.4); Eosinophil % 0.5 % (0.00-5.0); Eosinophil (Absolute #) 0.06 x10^3/uL (0-0.5); Hematocrit 32.4 % (35-47); Hemoglobin 10.1 g/dL (12.0-16.0); IMMATURE GRAN # 0.12 x10^3u/L (0.00-0.03); Lymphocyte (Absolute #) 0.89 x10^3/uL (1.0-4.6); Lymphocytes % 7.4 % (24.0-44.0); Mean Corpuscular Hemoglobin 28.7 pg (26-32); Mean Corpuscular Hgb Concent. 31.2 g/dL (32-36); Mean Platelet Volume 9.5 fL (7.5-11.0); Monocyte (Absolute #) 0.63 x10^3/uL (0.0-1.3); Monocytes % 5.2 % (0.0-12.0); Neutrophil % 85.5 % (36.0-66.0); Platelet Count 268 x10^3/uL (150-450); Red Blood Count 3.52 x10^6/uL (4.1-5.4); Red Cell Distribution Width 14.4 % (11.5-14.0)
[2023-08-24 12:28] LABS: ALBUMIN 3.3 g/dL (3.5-5.0); ALKALINE PHOSPHATASE 89 U/L (38-126); ANION GAP 12.7 MEQ/L (5-15); BLOOD UREA NITROGEN 17 mg/dL (7-17); CHLORIDE 87 mmol/L (98-107); Calcium 8.4 mg/dL (8.4-10.2); Carbon Dioxide 26 mmol/L (22-30); Creatinine 1 0.69 mg/dL (0.52-1.04); EST GLOMERULAR FILTRATION RATE > 60.0 ML/MIN; Glucose 191 mg/dL (74-106); NT PRO BNPII 731 pg/mL (<300); Potassium 4.4 mmol/L (3.5-5.1); SGOT/AST 24 U/L (14-36); SGPT/ALT 13 U/L (0-35); SODIUM 122 mmol/L (137-145); Total Protein 5.7 g/dL (6.3-8.2)
[2023-08-24] MEDS ORDERED: Zithromax 500 MG/ 250 ML NaCl Premix 500 MG/250 ML IVPB IV ONE (12:56)
[2023-08-24 13:05] LABS: INFLUENZA A NEGATIVE (NEGATIVE); INFLUENZA B NEGATIVE (NEGATIVE); RESPIRATORY SYNCTIAL VIRUS NEGATIVE (NEGATIVE); SARS-CoV-2 Xpert Express NEGATIVE (NEGATIVE)
--- NOTE | 2023-08-24 14:14 | XRAY ---
Indication: Short of breath. Elevated d-dimer. Multiple contiguous axial images obtained through the chest using 100 cc Isovue 370 contrast and PE protocol. Comparison: July 21, 2023 Good opacification of the pulmonary arteries to include the lobar and segmental branches. Mild diffuse respiration artifact now limits evaluation of the more distal lobar and segmental branches. No obvious pulmonary embolus. Heart remains borderline enlarged. Aorta again mildly arteriosclerotic without aneurysm/dissection. No pathologic mediastinal/hilar lymphadenopathy. Stable small hiatal hernia. Lungs again demonstrates bibasilar dependent atelectasis more than before. No suspicious pulmonary mass/nodule, infiltrate, or effusion. Bony thorax intact again with osteopenia, mild/moderate degenerative changes throughout the spine, remote T12 superior endplate fracture, and right shoulder arthroplasty. Limited upper abdomen again demonstrates fatty liver and small benign left adrenal mass. Impression: 1. Respiration artifact limits evaluation for pulmonary embolus. Continued grossly negative for pulmonary embolus. No new/acute abnormalities. 2. Again chronic findings including borderline cardiomegaly, hiatal hernia, fatty liver, benign left adrenal mass, and chronic bony findings.
[2023-08-24] MEDS ORDERED: DUONEB 0.5-3 MG/3 ml Neb IH PRN (15:12)
[2023-08-24] MEDS ORDERED: VENTOLIN COMMON CANISTER IH PRN (15:12)
--- NOTE | 2023-08-24 15:14 | PCM.HP ---
History of Present Illness - Chief Complaint Chief Complaint: COPD exacerbation, hypoxia, leukocytosis, normocytic anemia, hyponatremia Date: 08/24/23 History of Present Illness: is a 78 year old female with PMHX of migraines, peripheral neuropathy, CAD, HTN, PVD, COPD, Type II DM, hypothyroidism, arthritis, depression, and parkinson's. She presented to our ED via EMS for evaluation of shortness of breath and wheezing. Patient diagnosed with COVID 1 month ago. Daughter at bedside is the primary historian. She reports that patient never fully recovered from COVID. Patient has been short of breath since her diagnosis 1 month ago. However shortness of breath worsened over the past 2 days. No associated chest pain. No nausea vomiting or diaphoresis. Symptoms are moderate in intensity. No specific worsening or improving factors. They voiced no other complaints or concerns at this time. She was given azithromycin and prednisone in the ER. D-Dimer was elevated at 2.03, CT completed and negative for PE. - Review of Systems Constitutional: No Fever, No Chills Eyes: No Symptoms Ears, Nose, & Throat: No Symptoms Respiratory: Short Of Breath, No Cough Cardiac: No Chest Pain, No Edema, No Syncope Abdominal/Gastrointestinal: No Abdominal Pain, No Nausea, No Vomiting, No Diarr hea Genitourinary Symptoms: No Dysuria Musculoskeletal: No Back Pain, No Neck Pain Skin: No Rash Neurological: No Dizziness, No Focal Weakness, No Sensory Changes Psychological: No Symptoms Endocrine: No Symptoms Hematologic/Lymphatic: No Symptoms Immunological/Allergic: No Symptoms Medications & Allergies Home Medications: Home Medication List Alendronate Sodium 70 mg [Fosamax 70 MG] 70 mg PO WEEKLY 09/01/17 [History Confirmed 08/24/23] Ergocalciferol (Vitamin D2) [Vitamin D] 50,000 unit PO WEEKLY 09/01/17 [History Confirmed 08/24/23] Insulin Aspart [NovoLOG Insulin] 18 units SQ TIDWM 09/01/17 [History Confirmed 08/24/23] Levothyroxine Sodium 50 Mcg [Synthroid 50 Mcg] 50 mcg PO DAILY 09/01/17 [History Confirmed 08/24/23] Pravastatin Sodium 80 mg PO DAILY 09/01/17 [History Confirmed 08/24/23] Clopidogrel Bisulfate [PLAVIX Tablet] 75 mg PO DAILY 10/12/18 [History Confirmed 08/24/23] Aripiprazole 10 mg [Abilify 10 MG] 10 mg PO DAILY 11/22/20 [History Confirmed 08/24/23] Aspirin EC 81 mg [Ecotrin 81 mg] 81 mg PO DAILY 11/22/20 [History Confirmed 08/24/23] Famotidine 20 mg [Pepcid 20 MG] 20 mg PO BID 09/19/21 [History Confirmed 08/24/23] Lisinopril 10 mg [Zestril 10 MG] 10 mg PO DAILY 09/19/21 [History Confirmed 08/24/23] Albuterol Common Canister [Ventolin Common Canister] 2 puff IH Q6HPRN PRN 07/21/23 [History Confirmed 08/24/23] Carbidopa/Levodopa [Carbidopa-Levodopa 25-250 Tab] 1 each PO TID 07/21/23 [History Confirmed 08/24/23] Fluoxetine HCl 20 mg [Prozac 20 MG] 40 mg PO DAILY 07/21/23 [History Confirmed 08/24/23] Albuterol/Ipratropium 3ml Neb* [DUONEB 0.5-3 MG/3 ml Neb] 3 ml IH Q6H PRN 30 Days 07/23/23 [Rx Confirmed 08/24/23] Amlodipine Besylate [Norvasc] 10 mg PO DAILY 08/24/23 [History Confirmed 08/24/23] Ferrous Sulfate [Iron] 325 mg PO DAILY 08/24/23 [History Confirmed 08/24/23] Insulin Glargine,Hum.rec.anlog [Lantus Solostar] 22 unit SQ HS 08/24/23 [History Confirmed 08/24/23] Sertraline HCl 50 mg [Zoloft 50 mg Tablet] 50 mg PO DAILY 08/24/23 [History Confirmed 08/24/23] Allergies/Adverse Reactions: Allergies Allergy/AdvReac Type Severity Reaction Status Date / Time acetaminophen [From Lortab] Allergy Mild Nausea Verified 08/24/23 11:17 alprazolam [From Xanax] Allergy Mild Verified 08/24/23 11:17 hydrocodone bitartrate Allergy Mild Verified 08/24/23 11:17 [From Lortab] - Past Medical History Past Medical History: Yes Neurological History: Migraines, Peripheral Neuropathy ENT History: Cataracts Cardiac History: Coronary Artery Disease, Hypertension, Peripheral Vascular Disease Respiratory History: COPD, Pneumonia Endocrine Medical History: Diabetes Type II, Hypothyroidism Musculoskelatal History: Arthritis GI Medical History: No Pertinent History History: No Pertinent History Pyscho-Social History: Depression Reproductive Disorders: Fibroids Comment: Parkinsons - Past Surgical History Past Surgical History: Yes Neuro Surgical History: No Pertinent History Cardiac History: No Pertinent History, Cardiac Catheterization, Cardiac Stent, Vascular Surgery Respiratory Surgery: No Pertinent History GI Surgical History: No Pertinent History Genitourinary Surgical Hx: No Pertinent History Musculskeletal Surgical Hx: Joint Replacement, Orthopedic Surgery Female Surgical History: Section, Hysterectomy Other Surgical History: stent placed to l leg, priti. knee replacement, left femur fx with hdwe placed,right hip repair with hdwe placed, right shoulder joint repair - Social History Smoking Status: Former smoker How long have you smoked: 50 yrs Exposure to second hand smoke: Yes Alcohol: None Drug Use: none - Physical Exam Vital Signs: Vital Signs - 24 hr Temp Pulse Resp BP BP Pulse Ox 08/24/23 14:58 95 08/24/23 14:33 90 13 162/72 95 08/24/23 13:00 151/58 08/24/23 12:40 94 H 21 93 L 08/24/23 12:30 97 H 20 151/58 96 08/24/23 12:05 95 08/24/23 12:00 101 H 17 165/61 94 L 08/24/23 11:44 95 H 20 156/55 94 L 08/24/23 11:16 97.7 F 101 H 20 140/53 95 08/24/23 11:15 98 H 23 140/53 94 L General Appearance: no apparent distress, alert Neurologic Exam: alert, oriented x 3, cooperative, normal mood/affect, nml cerebellar function, nml station & gait, sensation nml, No motor deficits Eye Exam: PERRL/EOMI, eyes nml inspection Ears, Nose, Throat Exam: normal ENT inspection, TMs normal, pharynx normal, moist mucous membranes Neck Exam: normal inspection, non-tender, supple, full range of motion Respiratory Exam: wheezing, No respiratory distress Cardiovascular Exam: regular rate/rhythm, normal heart sounds, normal peripheral pulses Gastrointestinal/Abdomen Exam: soft, normal bowel sounds, No tenderness, No mass Back Exam: normal inspection, normal range of motion, No CVA tenderness, No vertebral tenderness Extremity Exam: normal inspection, normal range of motion, pelvis stable Skin Exam: normal color, warm, dry, No rash Lymphatic Exam: No adenopathy Results - Labs Lab/Micro Results: Lab Results-Last 24 Hours 08/24/23 08/24/23 08/24/23 Range/Units 12:07 12:07 12:07 WBC 12.0 H (4.0-10.5) x10^3/uL RBC 3.52 L (4.1-5.4) x10^6/uL Hgb 10.1 L (12.0-16.0) g/dL Hct 32.4 L (35-47) % MCV 92.0 (78-100) fL MCH 28.7 (26-32) pg MCHC 31.2 L (32-36) g/dL RDW 14.4 H (11.5-14.0) % Plt Count 268 (150-450) x10^3/uL MPV 9.5 (7.5-11.0) fL Gran % 85.5 H (36.0-66.0) % Immature Gran % (Auto) 1.0 H (0.00-0.4) % Nucleat RBC Rel Count 0.0 (0.00-0.1) % Eos # (Auto) 0.06 (0-0.5) x10^3/uL Immature Gran # (Auto) 0.12 H (0.00-0.03) x10^3u/L Absolute Lymphs (auto) 0.89 L (1.0-4.6) x10^3/uL Absolute Monos (auto) 0.63 (0.0-1.3) x10^3/uL Absolute Nucleated RBC 0.00 (0.00-0.01) x10^3u/L Lymphocytes % 7.4 L (24.0-44.0) % Monocytes % 5.2 (0.0-12.0) % Eosinophils % 0.5 (0.00-5.0) % Basophils % 0.4 (0.0-0.4) % Absolute Granulocytes 10.27 H (1.4-6.9) x10^3/uL Basophils # 0.05 (0-0.4) x10^3/uL D-Dimer 2.03 H* (0.0-0.50) mg/L Sodium (137-145) mmol/L Potassium (3.5-5.1) mmol/L Chloride (98-107) mmol/L Carbon Dioxide (22-30) mmol/L Anion Gap (5-15) MEQ/L BUN (7-17) mg/dL Creatinine (0.52-1.04) mg/dL Estimated GFR ML/MIN Glucose (74-106) mg/dL Calcium (8.4-10.2) mg/dL Total Bilirubin (0.2-1.3) mg/dL AST (14-36) U/L ALT (0-35) U/L Alkaline Phosphatase (38-126) U/L Troponin I 0.013 (0.000-0.034) ng/mL NT-Pro-B Natriuret Pep (<300) pg/mL Serum Total Protein (6.3-8.2) g/dL Albumin (3.5-5.0) g/dL Influenza Type A Ag (NEGATIVE) Influenza Type B Ag (NEGATIVE) RSV (PCR) (NEGATIVE) SARS-CoV-2 (PCR) (NEGATIVE) 08/24/23 08/24/23 Range/Units 12:07 12:10 WBC (4.0-10.5) x10^3/uL RBC (4.1-5.4) x10^6/uL Hgb (12.0-16.0) g/dL Hct (35-47) % MCV (78-100) fL MCH (26-32) pg MCHC (32-36) g/dL RDW (11.5-14.0) % Plt Count (150-450) x10^3/uL MPV (7.5-11.0) fL Gran % (36.0-66.0) % Immature Gran % (Auto) (0.00-0.4) % Nucleat RBC Rel Count (0.00-0.1) % Eos # (Auto) (0-0.5) x10^3/uL Immature Gran # (Auto) (0.00-0.03) x10^3u/L Absolute Lymphs (auto) (1.0-4.6) x10^3/uL Absolute Monos (auto) (0.0-1.3) x10^3/uL Absolute Nucleated RBC (0.00-0.01) x10^3u/L Lymphocytes % (24.0-44.0) % Monocytes % (0.0-12.0) % Eosinophils % (0.00-5.0) % Basophils % (0.0-0.4) % Absolute Granulocytes (1.4-6.9) x10^3/uL Basophils # (0-0.4) x10^3/uL D-Dimer (0.0-0.50) mg/L Sodium 122 L (137-145) mmol/L Potassium 4.4 (3.5-5.1) mmol/L Chloride 87 L (98-107) mmol/L Carbon Dioxide 26 (22-30) mmol/L Anion Gap 12.7 (5-15) MEQ/L BUN 17 (7-17) mg/dL Creatinine 0.69 (0.52-1.04) mg/dL Estimated GFR > 60.0 ML/MIN Glucose 191 H (74-106) mg/dL Calcium 8.4 (8.4-10.2) mg/dL Total Bilirubin 0.60 (0.2-1.3) mg/dL AST 24 (14-36) U/L ALT 13 (0-35) U/L Alkaline Phosphatase 89 (38-126) U/L Troponin I (0.000-0.034) ng/mL NT-Pro-B Natriuret Pep 731 (<300) pg/mL Serum Total Protein 5.7 L (6.3-8.2) g/dL Albumin 3.3 L (3.5-5.0) g/dL Influenza Type A Ag NEGATIVE (NEGATIVE) Influenza Type B Ag NEGATIVE (NEGATIVE) RSV (PCR) NEGATIVE (NEGATIVE) SARS-CoV-2 (PCR) NEGATIVE (NEGATIVE) - Radiology Impressions Radiology Exams & Impressions: Radiology Procedures Category Date Time Status CHEST WITH CONTRAST [CT] Stat Exams 08/24/23 13:04 Completed - Other Procedures and Tests Respiratory Therapy 08/24/23 12:51 Respiratory Therapy Assessment DAILY Assessment/Plan (1) COPD exacerbation Current Visit: Yes Status: Acute Onset Date: ~10/12/18 Assessment & Plan: - ceftriaxone, solumedrol - will need OP f/u with Pulmonology- does not have a physician - D-dimer 2.03- CT negative for PE - 95% RA Code(s): J44.1 - CHRONIC OBSTRUCTIVE PULMONARY DISEASE W (ACUTE) EXACERBATION (2) Hypertension Current Visit: No Status: Chronic Qualifiers: Assessment & Plan: - stable- resume home meds Code(s): I10 - ESSENTIAL (PRIMARY) HYPERTENSION (3) Hypothyroid Current Visit: No Status: Chronic Qualifiers: Assessment & Plan: - resume synthroid Code(s): E03.9 - HYPOTHYROIDISM, UNSPECIFIED (4) Morbid obesity Current Visit: No Status: Chronic Assessment & Plan: - advised diet control Code status: SCO/ DNR D/C plan: 1-2 days Code(s): E66.01 - MORBID (SEVERE) OBESITY DUE TO EXCESS CALORIES
[2023-08-24] MEDS ORDERED: Sinemet 25/250 MG PO SCH (17:00)
[2023-08-24] MEDS: Sinemet 10/100 MG PO SCH (17:07)
[2023-08-24] MEDS: DUONEB 0.5-3 MG/3 ml Neb IH SCH (17:43)
[2023-08-24] MEDS: HUMALOG SQ SCH (17:45)
[2023-08-24] MEDS: HUMALOG SQ PRN ×2 (17:45→22:34)
[2023-08-24] MEDS: Lantus Insulin SQ SCH (22:33)
[2023-08-24] MEDS: PLAVIX Tablet PO SCH (22:34)
[2023-08-24] MEDS: solu-MEDROL 40 MG, Sterile H2O 10 ml 1 ML IV SCH ×2 (22:34)
[2023-08-24] MEDS: Pepcid 20 MG PO SCH (22:34)
[2023-08-25 05:28] LABS: Hematocrit 32.1 % (35-47); Hemoglobin 10.4 g/dL (12.0-16.0); Mean Cell Volume 89.4 fL (78-100); Mean Corpuscular Hgb Concent. 32.4 g/dL (32-36); Mean Platelet Volume 10.1 fL (7.5-11.0); Platelet Count 305 x10^3/uL (150-450); Red Blood Count 3.59 x10^6/uL (4.1-5.4); Red Cell Distribution Width 14.4 % (11.5-14.0); White Blood Count 11.9 x10^3/uL (4.0-10.5)
[2023-08-25] MEDS: DUONEB 0.5-3 MG/3 ml Neb IH SCH ×4 (05:36→18:47)
[2023-08-25 06:07] LABS: ALBUMIN 3.7 g/dL (3.5-5.0); ALKALINE PHOSPHATASE 82 U/L (38-126); ANION GAP 12.4 MEQ/L (5-15); BLOOD UREA NITROGEN 19 mg/dL (7-17); CHLORIDE 90 mmol/L (98-107); Calcium 8.4 mg/dL (8.4-10.2); Carbon Dioxide 24 mmol/L (22-30); Creatinine 1 0.75 mg/dL (0.52-1.04); EST GLOMERULAR FILTRATION RATE > 60.0 ML/MIN; Glucose 235 mg/dL (74-106); Potassium 5.2 mmol/L (3.5-5.1); SGOT/AST 29 U/L (14-36); SGPT/ALT 14 U/L (0-35); SODIUM 121 mmol/L (137-145); Total Protein 6.6 g/dL (6.3-8.2)
[2023-08-25] MEDS ORDERED: Dextrose 5%-NS IV Solution 1000 ML 1,000 ML IV SCH (08:00)
[2023-08-25] MEDS: HUMALOG SQ SCH ×3 (08:02→17:17)
[2023-08-25] MEDS: HUMALOG SQ PRN ×4 (08:02→21:10)
[2023-08-25] MEDS ORDERED: Lasix 40 MG/4 ML IV ONE (08:15)
[2023-08-25] MEDS: Pepcid 20 MG PO SCH ×2 (09:36→21:08)
[2023-08-25] MEDS: SYNTHROID 50 MCG PO SCH (09:36)
[2023-08-25] MEDS: FEOSOL 325 MG PO SCH (09:36)
[2023-08-25] MEDS: Abilify 10 MG PO SCH (09:36)
[2023-08-25] MEDS: Sinemet 10/100 MG PO SCH ×3 (09:36→17:17)
[2023-08-25] MEDS: NORVASC 5 MG PO SCH (09:36)
[2023-08-25] MEDS: Zestril 10 MG PO SCH (09:37)
[2023-08-25] MEDS: solu-MEDROL 40 MG, Sterile H2O 10 ml 1 ML IV SCH ×4 (09:37→21:09)
[2023-08-25] MEDS: ZOCOR 20MG PO SCH (09:37)
[2023-08-25] MEDS: ROCEPHIN 1 Gm-D5w 50 ml Bag** 1 G/50 ML IVPB IV SCH (09:37)
[2023-08-25] MEDS: ECOTRIN 81 MG PO SCH (09:37)
[2023-08-25] MEDS ORDERED: NON-FORMULARY ITEM (Amlodipine Besylate [Norvasc] 10 MG Tablet) PO SCH (10:00)
[2023-08-25] MEDS ORDERED: ZOLOFT 50 MG TABLET PO SCH (10:00)
[2023-08-25] MEDS ORDERED: PLAVIX Tablet PO SCH (10:00)
[2023-08-25] MEDS ORDERED: Prozac 20 MG PO SCH (10:00)
[2023-08-25] MEDS ORDERED: ENOXAPARIN SODIUM SQ SCH (10:00)
[2023-08-25 11:29] LABS: ALBUMIN 3.8 g/dL (3.5-5.0); ALKALINE PHOSPHATASE 73 U/L (38-126); ANION GAP 11.3 MEQ/L (5-15); BLOOD UREA NITROGEN 21 mg/dL (7-17); CHLORIDE 89 mmol/L (98-107); Calcium 8.5 mg/dL (8.4-10.2); Carbon Dioxide 25 mmol/L (22-30); Creatinine 1 0.93 mg/dL (0.52-1.04); EST GLOMERULAR FILTRATION RATE > 60.0 ML/MIN; Glucose 190 mg/dL (74-106); Potassium 4.8 mmol/L (3.5-5.1); SGOT/AST 31 U/L (14-36); SGPT/ALT 12 U/L (0-35); SODIUM 121 mmol/L (137-145); Total Protein 6.6 g/dL (6.3-8.2)
--- NOTE | 2023-08-25 13:32 | PCM.NOTE ---
Date and Time: 08/25/23 1326 Subjective Assessment: 08/24/23 is a 78 year old female with PMHX of migraines, peripheral neuropathy, CAD, HTN, PVD, COPD, Type II DM, hypothyroidism, arthritis, depression, and parkinson's. She presented to our ED via EMS for evaluation of shortness of breath and wheezing. Patient diagnosed with COVID 1 month ago. Daughter at bedside is the primary historian. She reports that patient never fully recovered from COVID. Patient has been short of breath since her diagnosis 1 month ago. However shortness of breath worsened over the past 2 days. No associated chest pain. No nausea vomiting or diaphoresis. Symptoms are moderate in intensity. No specific worsening or improving factors. They voiced no other complaints or concerns at this time. She was given azithromycin and prednisone in the ER. D-Dimer was elevated at 2.03, CT completed and negative for PE. 08/25/23 Pt resting in bed. She continues to have wheezing today. Continue steroids, antibiotics, and bronchodilators. She will need to f/u with Pulm Op. Na+ low and sertraline and fluoxetine stopped. Appears to be SIADH related. Fluid restr iction of 1 L daily. We do not have salt tabs per pharmacy. Lasix ordered for K+ of 5.2. Troponins went up slightly overnight. Pt denies CP. Echo ordered for further evaluation. She denies further concerns at this time. - Review of Systems Constitutional: No Fever, No Chills Eyes: No Symptoms Ears, Nose, & Throat: No Symptoms Respiratory: Wheezing, No Cough, No Short Of Breath Cardiac: No Chest Pain, No Edema, No Syncope Abdominal/Gastrointestinal: No Abdominal Pain, No Nausea, No Vomiting, No Diarrhea Genitourinary Symptoms: No Dysuria Musculoskeletal: No Back Pain, No Neck Pain Skin: No Rash Neurological: No Dizziness, No Focal Weakness, No Sensory Changes Psychological: No Symptoms Endocrine: No Symptoms Hematologic/Lymphatic: No Symptoms Immunological/Allergic: No Symptoms Objective Exam General Appearance: no apparent distress, alert, obese Neurologic Exam: alert, oriented x 3, cooperative, normal mood/affect, nml cerebellar function, sensation nml, No motor deficits Skin Exam: normal color, warm, dry Eye Exam: PERRL, EOMI, eyes nml inspection Ears, Nose, Throat Exam: normal ENT inspection, pharynx normal, moist mucous membranes Neck Exam: normal inspection, non-tender, supple, full range of motion Respiratory Exam: normal breath sounds, lungs clear, No respiratory distress Cardiovascular Exam: regular rate/rhythm, normal heart sounds Gastrointestinal/Abdomen Exam: soft, No tenderness, No mass Extremity Exam: normal inspection, normal range of motion Back Exam: normal inspection, normal range of motion, No CVA tenderness, No vertebral tenderness Pelvic Exam: deferred Rectal Exam: deferred OBJECTIVE DATA Vital Signs: Vital Signs - 24 hr Temp Pulse Resp BP BP Pulse Ox 08/25/23 12:00 97.3 F 92 H 20 137/58 97 08/25/23 11:12 88 20 96 08/25/23 08:00 97.3 F 94 H 20 156/87 97 08/25/23 05:37 92 H 18 98 08/25/23 04:00 98.5 F 86 20 137/60 97 08/24/23 23:39 98.5 F 96 H 22 140/63 95 08/24/23 20:00 98.1 F 98 H 22 130/56 97 08/24/23 17:44 98 H 22 92 L 08/24/23 15:36 98.0 F 106 H 24 136/65 91 L 08/24/23 14:59 91 L 08/24/23 14:58 95 08/24/23 14:33 90 13 162/72 95 Pain Assessment - Last Documented Pain Intensity 0 Intake and Output: Intake & Output 08/23/23 08/24/23 08/25/23 08/26/23 11:59 11:59 11:59 11:59 Intake Total 1160 Output Total 2600 1000 Balance -1440 -1000 Weight 125.3 kg 124.5 kg Lab Results: Lab Results-Last 24 Hours 08/24/23 08/24/23 08/24/23 Range/Units 16:29 16:43 16:47 WBC (4.0-10.5) x10^3/uL RBC (4.1-5.4) x10^6/uL Hgb (12.0-16.0) g/dL Hct (35-47) % MCV (78-100) fL MCH (26-32) pg MCHC (32-36) g/dL RDW (11.5-14.0) % Plt Count (150-450) x10^3/uL MPV (7.5-11.0) fL Sodium (137-145) mmol/L Potassium (3.5-5.1) mmol/L Chloride (98-107) mmol/L Carbon Dioxide (22-30) mmol/L Anion Gap (5-15) MEQ/L BUN (7-17) mg/dL Creatinine (0.52-1.04) mg/dL Estimated GFR ML/MIN Glucose (74-106) mg/dL POC Glucometer 261 H (74 to 106) mg/dL Calcium (8.4-10.2) mg/dL Total Bilirubin (0.2-1.3) mg/dL AST (14-36) U/L ALT (0-35) U/L Alkaline Phosphatase (38-126) U/L Troponin I 0.042 H* (0.000-0.034) ng/mL Serum Total Protein (6.3-8.2) g/dL Albumin (3.5-5.0) g/dL Prealbumin 17.94 (17.6-36.0) mg/dL Urine Sodium (30-90) mmol/L 08/24/23 08/24/23 08/25/23 Range/Units 20:07 21:46 04:46 WBC 11.9 H (4.0-10.5) x10^3/uL RBC 3.59 L (4.1-5.4) x10^6/uL Hgb 10.4 L (12.0-16.0) g/dL Hct 32.1 L (35-47) % MCV 89.4 (78-100) fL MCH 29.0 (26-32) pg MCHC 32.4 (32-36) g/dL RDW 14.4 H (11.5-14.0) % Plt Count 305 (150-450) x10^3/uL MPV 10.1 (7.5-11.0) fL Sodium (137-145) mmol/L Potassium (3.5-5.1) mmol/L Chloride (98-107) mmol/L Carbon Dioxide (22-30) mmol/L Anion Gap (5-15) MEQ/L BUN (7-17) mg/dL Creatinine (0.52-1.04) mg/dL Estimated GFR ML/MIN Glucose (74-106) mg/dL POC Glucometer 220 H (74 to 106) mg/dL Calcium (8.4-10.2) mg/dL Total Bilirubin (0.2-1.3) mg/dL AST (14-36) U/L ALT (0-35) U/L Alkaline Phosphatase (38-126) U/L Troponin I 0.045 H* (0.000-0.034) ng/mL Serum Total Protein (6.3-8.2) g/dL Albumin (3.5-5.0) g/dL Prealbumin (17.6-36.0) mg/dL Urine Sodium (30-90) mmol/L 08/25/23 08/25/23 08/25/23 Range/Units 04:46 07:02 11:00 WBC (4.0-10.5) x10^3/uL RBC (4.1-5.4) x10^6/uL Hgb (12.0-16.0) g/dL Hct (35-47) % MCV (78-100) fL MCH (26-32) pg MCHC (32-36) g/dL RDW (11.5-14.0) % Plt Count (150-450) x10^3/uL MPV (7.5-11.0) fL Sodium 121 L (137-145) mmol/L Potassium 5.2 H (3.5-5.1) mmol/L Chloride 90 L (98-107) mmol/L Carbon Dioxide 24 (22-30) mmol/L Anion Gap 12.4 (5-15) MEQ/L BUN 19 H (7-17) mg/dL Creatinine 0.75 (0.52-1.04) mg/dL Estimated GFR > 60.0 ML/MIN Glucose 235 H (74-106) mg/dL POC Glucometer 257 H (74 to 106) mg/dL Calcium 8.4 (8.4-10.2) mg/dL Total Bilirubin 0.70 (0.2-1.3) mg/dL AST 29 (14-36) U/L ALT 14 (0-35) U/L Alkaline Phosphatase 82 (38-126) U/L Troponin I (0.000-0.034) ng/mL Serum Total Protein 6.6 (6.3-8.2) g/dL Albumin 3.7 (3.5-5.0) g/dL Prealbumin (17.6-36.0) mg/dL Urine Sodium 49 (30-90) mmol/L 08/25/23 08/25/23 Range/Units 11:02 11:32 WBC (4.0-10.5) x10^3/uL RBC (4.1-5.4) x10^6/uL Hgb (12.0-16.0) g/dL Hct (35-47) % MCV (78-100) fL MCH (26-32) pg MCHC (32-36) g/dL RDW (11.5-14.0) % Plt Count (150-450) x10^3/uL MPV (7.5-11.0) fL Sodium 121 L (137-145) mmol/L Potassium 4.8 (3.5-5.1) mmol/L Chloride 89 L (98-107) mmol/L Carbon Dioxide 25 (22-30) mmol/L Anion Gap 11.3 (5-15) MEQ/L BUN 21 H (7-17) mg/dL Creatinine 0.93 (0.52-1.04) mg/dL Estimated GFR > 60.0 ML/MIN Glucose 190 H (74-106) mg/dL POC Glucometer 189 H (74 to 106) mg/dL Calcium 8.5 (8.4-10.2) mg/dL Total Bilirubin 0.60 (0.2-1.3) mg/dL AST 31 (14-36) U/L ALT 12 (0-35) U/L Alkaline Phosphatase 73 (38-126) U/L Troponin I (0.000-0.034) ng/mL Serum Total Protein 6.6 (6.3-8.2) g/dL Albumin 3.8 (3.5-5.0) g/dL Prealbumin (17.6-36.0) mg/dL Urine Sodium (30-90) mmol/L Radiology Exams: Radiology Procedures Category Date Time Status CHEST WITH CONTRAST [CT] Stat Exams 08/24/23 13:04 Completed ECHO W/2D AND DOPPLER [US] Routine Exams 08/25/23 11:16 Ordered Assessment/Plan (1) COPD exacerbation Current Visit: Yes Status: Acute Onset Date: ~10/12/18 Assessment & Plan: - ceftriaxone, solumedrol, duonebs - will need OP f/u with Pulmonology- does not have a physician - D-dimer 2.03- CT negative for PE - 95% RA 08/25 - 2lNC- baseline RA - + wheezing Code(s): J44.1 - CHRONIC OBSTRUCTIVE PULMONARY DISEASE W (ACUTE) EXACERBATION (2) SIADH (syndrome of inappropriate ADH production) Current Visit: Yes Status: Acute Assessment & Plan: - Hold sertraline and fluoxetine - 1 L fluid restriction - Na+ 121- baseline 133 - Pt states she has felt worse since new SSRI added. - May need to consider alternate meds for depression OP that do not affect sodium levels. - urine os, urine Na+, Serum os, and ADH labs ordered - Urine Na+ 49 (3) Hypertension Current Visit: No Status: Chronic Qualifiers: Assessment & Plan: - stable- resume home meds Code(s): I10 - ESSENTIAL (PRIMARY) HYPERTENSION (4) Hypothyroid Current Visit: No Status: Chronic Qualifiers: Assessment & Plan: - resume synthroid Code(s): E03.9 - HYPOTHYROIDISM, UNSPECIFIED (5) Morbid obesity Current Visit: No Status: Chronic Assessment & Plan: - advised diet control Code(s): E66.01 - MORBID (SEVERE) OBESITY DUE TO EXCESS CALORIES (6) Hyperkalemia Current Visit: Yes Status: Acute Assessment & Plan: - K+ 5.2- lasix IV x1 gave - repeat K+ resolved. Code status: SCO/ DNR D/C plan: 1-2 days Code(s): E87.5 - HYPERKALEMIA
[2023-08-25] MEDS: Wellbutrin SR 150 MG PO SCH ×2 (15:44→21:09)
[2023-08-25 16:18] LABS: ALBUMIN 3.7 g/dL (3.5-5.0); ALKALINE PHOSPHATASE 76 U/L (38-126); ANION GAP 9.3 MEQ/L (5-15); BLOOD UREA NITROGEN 27 mg/dL (7-17); CHLORIDE 89 mmol/L (98-107); Calcium 8.5 mg/dL (8.4-10.2); Carbon Dioxide 28 mmol/L (22-30); Creatinine 1 0.94 mg/dL (0.52-1.04); EST GLOMERULAR FILTRATION RATE > 60.0 ML/MIN; Glucose 197 mg/dL (74-106); Potassium 4.8 mmol/L (3.5-5.1); SGOT/AST 30 U/L (14-36); SGPT/ALT 11 U/L (0-35); SODIUM 122 mmol/L (137-145); Total Protein 6.5 g/dL (6.3-8.2)
[2023-08-25] MEDS: PLAVIX Tablet PO SCH (21:09)
[2023-08-25] MEDS: Lantus Insulin SQ SCH (21:09)
[2023-08-25 22:58] LABS: ALBUMIN 3.8 g/dL (3.5-5.0); ANION GAP 10.8 MEQ/L (5-15); BILIRUBIN,TOTAL 0.4 mg/dL (0.2-1.3); Calcium 8.9 mg/dL (8.4-10.2); Creatinine 1 1.03 mg/dL (0.52-1.04); EST GLOMERULAR FILTRATION RATE 55.2 ML/MIN; Potassium 4.8 mmol/L (3.5-5.1); Total Protein 6.5 g/dL (6.3-8.2)
[2023-08-26 04:54] LABS: Hematocrit 32.8 % (35-47); Hemoglobin 10.4 g/dL (12.0-16.0); Mean Cell Volume 89.9 fL (78-100); Mean Corpuscular Hemoglobin 28.5 pg (26-32); Mean Corpuscular Hgb Concent. 31.7 g/dL (32-36); Mean Platelet Volume 10.2 fL (7.5-11.0); Platelet Count 310 x10^3/uL (150-450); Red Blood Count 3.65 x10^6/uL (4.1-5.4); Red Cell Distribution Width 14.8 % (11.5-14.0); White Blood Count 13.5 x10^3/uL (4.0-10.5)
[2023-08-26] MEDS: DUONEB 0.5-3 MG/3 ml Neb IH SCH ×2 (07:05→11:08)
[2023-08-26 07:10] VITALS: RESP 22; TEMP 97.3
[2023-08-26] MEDS: Sinemet 10/100 MG PO SCH ×2 (07:49→11:45)
[2023-08-26] MEDS: HUMALOG SQ PRN ×2 (07:50→11:45)
[2023-08-26] MEDS: HUMALOG SQ SCH ×2 (07:50→11:45)
[2023-08-26 09:24] LABS: ALBUMIN 3.6 g/dL (3.5-5.0); ALKALINE PHOSPHATASE 84 U/L (38-126); ANION GAP 7.6 MEQ/L (5-15); BLOOD UREA NITROGEN 33 mg/dL (7-17); CHLORIDE 92 mmol/L (98-107); Calcium 8.7 mg/dL (8.4-10.2); Carbon Dioxide 29 mmol/L (22-30); Creatinine 1 0.95 mg/dL (0.52-1.04); EST GLOMERULAR FILTRATION RATE > 60.0 ML/MIN; Glucose 219 mg/dL (74-106); SGOT/AST 31 U/L (14-36); SGPT/ALT 13 U/L (0-35); SODIUM 124 mmol/L (137-145); Total Protein 6.4 g/dL (6.3-8.2)
[2023-08-26] MEDS: NORVASC 5 MG PO SCH (10:11)
[2023-08-26] MEDS: Pepcid 20 MG PO SCH (10:11)
[2023-08-26] MEDS: FEOSOL 325 MG PO SCH (10:11)
[2023-08-26] MEDS: ZOCOR 20MG PO SCH (10:11)
[2023-08-26] MEDS: SYNTHROID 50 MCG PO SCH (10:11)
[2023-08-26] MEDS: ROCEPHIN 1 Gm-D5w 50 ml Bag** 1 G/50 ML IVPB IV SCH (10:11)
[2023-08-26] MEDS: Zestril 10 MG PO SCH (10:11)
[2023-08-26] MEDS: Wellbutrin SR 150 MG PO SCH (10:11)
[2023-08-26] MEDS: ECOTRIN 81 MG PO SCH (10:11)
[2023-08-26] MEDS: Abilify 10 MG PO SCH (10:11)
[2023-08-26] MEDS: solu-MEDROL 40 MG, Sterile H2O 10 ml 1 ML IV SCH ×2 (10:11)
[2023-08-26 12:15] VITALS: BP 170/66; PULSE 88; O2SAT 95
--- NOTE | 2023-08-26 12:26 | PCM.DS ---
Discharge Summary Date of Admission: 08/24/23 14:57 Date of Discharge: 08/26/23 Admitting Physician: EDEN CAGE MD Primary Care Provider: KIARA SHEPARD Allergies Allergies acetaminophen [From Lortab] Allergy (Mild, Verified 08/24/23 11:17) Nausea alprazolam [From Xanax] Allergy (Mild, Verified 08/24/23 11:17) Altered mental status-per pt hydrocodone bitartrate [From Lortab] Allergy (Mild, Verified 08/24/23 11:17) Hospital Summary - Hospital Course Hospital Course: 08/24/23 is a 78 year old female with PMHX of migraines, peripheral neuropathy, CAD, HTN, PVD, COPD, Type II DM, hypothyroidism, arthritis, depression, and parkinson's. She presented to our ED via EMS for evaluation of shortness of breath and wheezing. Patient diagnosed with COVID 1 month ago. Daughter at bedside is the primary historian. She reports that patient never fully recovered from COVID. Patient has been short of breath since her diagnosis 1 month ago. However shortness of breath worsened over the past 2 days. No associated chest pain. No nausea vomiting or diaphoresis. Symptoms are moderate in intensity. No specific worsening or improving factors. They voiced no other complaints or concerns at this time. She was given azithromycin and prednisone in the ER. D-Dimer was elevated at 2.03, CT completed and negative for PE. 08/25/23 Pt resting in bed. She continues to have wheezing today. Continue steroids, antibiotics, and bronchodilators. She will need to f/u with Pulm Op. Na+ low and sertraline and fluoxetine stopped. Appears to be SIADH related. Fluid restriction of 1 L daily. We do not have salt tabs per pharmacy. Lasix ordered for K+ of 5.2. Troponins went up slightly overnight. Pt denies CP. Echo ordered for further evaluation. She denies further concerns at this time. 08/26/23 Pt sitting up in chair today. She explains she is feeling much better. Discussed meds with Dr. Shepard yesterday. Started wellbutrin and stopped SSRI's due to associated SIADH. Will d/c home with salt tabs to increase sodium. She reports she has no inhalers at home. Will d/c home with inhalers for COPD. She does not wear oxygen at night or wear a CPAP. Overnight pulse ox ordered and PCP to review if pt needs oxygen. She may also need an OP sleep study with oxygen. EF is 40-45% per echo reading. Discussed she needs to f/u with cardiology next week and pulmonology. Appointments were made. She denies any further concerns at this time. - Vitals & Intake/Output Vital Signs: Vital Signs Temperature 97.3 F 08/26/23 07:09 Pulse Rate 90 08/26/23 11:13 Respiratory Rate 22 08/26/23 11:13 Blood Pressure 133/60 08/26/23 07:09 O2 Sat by Pulse Oximetry 92 L 08/26/23 11:13 Intake & Output: Intake & Output 08/24/23 08/25/23 08/26/23 08/27/23 11:59 11:59 11:59 11:59 Intake Total 1160 470 Output Total 2600 3600 Balance -1440 -3130 Weight 125.3 kg 124.5 kg - Lab Result Diagrams: 08/26/23 04:12 08/26/23 04:20 Lab Results-Last 24 Hrs: Lab Results-Last 24 Hours 08/25/23 08/25/23 08/25/23 Range/Units 15:59 16:47 20:49 WBC (4.0-10.5) x10^3/uL RBC (4.1-5.4) x10^6/uL Hgb (12.0-16.0) g/dL Hct (35-47) % MCV (78-100) fL MCH (26-32) pg MCHC (32-36) g/dL RDW (11.5-14.0) % Plt Count (150-450) x10^3/uL MPV (7.5-11.0) fL Sodium 122 L (137-145) mmol/L Potassium 4.8 (3.5-5.1) mmol/L Chloride 89 L (98-107) mmol/L Carbon Dioxide 28 (22-30) mmol/L Anion Gap 9.3 (5-15) MEQ/L BUN 27 H (7-17) mg/dL Creatinine 0.94 (0.52-1.04) mg/dL Estimated GFR > 60.0 ML/MIN Glucose 197 H (74-106) mg/dL POC Glucometer 216 H 281 H (74 to 106) mg/dL Calcium 8.5 (8.4-10.2) mg/dL Total Bilirubin 0.50 (0.2-1.3) mg/dL AST 30 (14-36) U/L ALT 11 (0-35) U/L Alkaline Phosphatase 76 (38-126) U/L Serum Total Protein 6.5 (6.3-8.2) g/dL Albumin 3.7 (3.5-5.0) g/dL 08/25/23 08/26/23 08/26/23 Range/Units 22:35 04:12 04:20 WBC 13.5 H (4.0-10.5) x10^3/uL RBC 3.65 L (4.1-5.4) x10^6/uL Hgb 10.4 L (12.0-16.0) g/dL Hct 32.8 L (35-47) % MCV 89.9 (78-100) fL MCH 28.5 (26-32) pg MCHC 31.7 L (32-36) g/dL RDW 14.8 H (11.5-14.0) % Plt Count 310 (150-450) x10^3/uL MPV 10.2 (7.5-11.0) fL Sodium 124 L 124 L (137-145) mmol/L Potassium 4.8 5.0 (3.5-5.1) mmol/L Chloride 89 L 92 L (98-107) mmol/L Carbon Dioxide 29 29 (22-30) mmol/L Anion Gap 10.8 7.6 (5-15) MEQ/L BUN 31 H 33 H (7-17) mg/dL Creatinine 1.03 0.95 (0.52-1.04) mg/dL Estimated GFR 55.2 > 60.0 ML/MIN Glucose 233 H 219 H (74-106) mg/dL POC Glucometer (74 to 106) mg/dL Calcium 8.9 8.7 (8.4-10.2) mg/dL Total Bilirubin 0.40 0.40 (0.2-1.3) mg/dL AST 32 31 (14-36) U/L ALT 14 13 (0-35) U/L Alkaline Phosphatase 89 84 (38-126) U/L Serum Total Protein 6.5 6.4 (6.3-8.2) g/dL Albumin 3.8 3.6 (3.5-5.0) g/dL 08/26/23 08/26/23 Range/Units 06:27 11:02 WBC (4.0-10.5) x10^3/uL RBC (4.1-5.4) x10^6/uL Hgb (12.0-16.0) g/dL Hct (35-47) % MCV (78-100) fL MCH (26-32) pg MCHC (32-36) g/dL RDW (11.5-14.0) % Plt Count (150-450) x10^3/uL MPV (7.5-11.0) fL Sodium (137-145) mmol/L Potassium (3.5-5.1) mmol/L Chloride (98-107) mmol/L Carbon Dioxide (22-30) mmol/L Anion Gap (5-15) MEQ/L BUN (7-17) mg/dL Creatinine (0.52-1.04) mg/dL Estimated GFR ML/MIN Glucose (74-106) mg/dL POC Glucometer 227 H 167 H (74 to 106) mg/dL Calcium (8.4-10.2) mg/dL Total Bilirubin (0.2-1.3) mg/dL AST (14-36) U/L ALT (0-35) U/L Alkaline Phosphatase (38-126) U/L Serum Total Protein (6.3-8.2) g/dL Albumin (3.5-5.0) g/dL Micro Results-Entire Visit: Microbiology 08/24/23 12:25 Blood Culture - Preliminary Blood 08/24/23 12:15 Blood Culture - Preliminary Blood Accuchecks Date 08/26/23 Time 07:08 - Radiology Exams Ordered Rad Exams-Entire Visit: Radiology Procedures Category Date Time Status CHEST WITH CONTRAST [CT] Stat Exams 08/24/23 13:04 Completed ECHO W/2D AND DOPPLER [US] Routine Exams 08/25/23 11:16 Taken - Procedures and Test Procedures and Tests throughout Hospitalization: Therapy Orders & Screens 08/24/23 12:51 Respiratory Therapy Assessment DAILY Comment: 08/24/23 16:29 OT Screen per Nursing Assess ONCE Comment: Protocol Order Physician Instructions: Greater than 3 points order OT Admission Screening Reason For Exam: Triggered on Admission Diagnosis: COPD exacerbation, hypoxia, leukocytosis, normocytic anemia, hyponatremia Open Wound/Cellutlitis/Pressure Ulcers: No Acute Fx/ORIF/Change in wt bearing status: No Severe MUSCULOSKELETAL pain: No ADL Dysfunction: Yes Acute CVA w/Hemiparesis/Hemiplegia: No Decreased Functional Mobility/Strength: Yes Sprain/Strain: No Acute Post-op Mobility Dysfunction: No Total Points: 4 PT Screen per Nursing Assess ONCE Comment: Protocol Order Physician Instructions: Greater than 3 points order PT Admission Screenin Reason For Exam: Triggered on Admission Diagnosis: COPD exacerbation, hypoxia, leukocytosis, normocytic anemia, hyponatremia Open Wound/Cellutlitis/Pressure Ulcers: No Acute Fx/ORIF/Change in wt bearing status: No Severe MUSCULOSKELETAL pain: No ADL Dysfunction: Yes Acute CVA w/Hemiparesis/Hemiplegia: No Decreased Functional Mobility/Strength: Yes Sprain/Strain: No Acute Post-op Mobility Dysfunction: No Total Points: 4 08/24/23 16:49 Oxygen Nasal Cannula 2 lpm Comment: Diagnosis: COPD exacerbation, hypoxia, leukocytosis, normocytic anemia, hyponatremia Discharge Exam General Appearance: no apparent distress, alert, obese Neurologic Exam: alert, oriented x 3, cooperative, normal mood/affect, nml cerebellar function, sensation nml, No motor deficits Eye Exam: PERRL, EOMI, eyes nml inspection Ears, Nose, Throat Exam: normal ENT inspection, pharynx normal, moist mucous membranes Neck Exam: normal inspection, non-tender, supple, full range of motion Respiratory Exam: normal breath sounds, lungs clear, No respiratory distress Cardiovascular Exam: regular rate/rhythm, normal heart sounds Gastrointestinal/Abdomen Exam: soft, No tenderness, No mass Pelvic Exam: deferred Rectal Exam: deferred Back Exam: normal inspection, normal range of motion, No CVA tenderness, No vertebral tenderness Extremity Exam: normal inspection, normal range of motion Skin Exam: normal color, warm, dry Final Diagnosis/Problem List - Final Discharge Diagnosis/Problem (1) COPD exacerbation Current Visit: Yes Status: Acute Onset Date: ~10/12/18 Code(s): J44.1 - CHRONIC OBSTRUCTIVE PULMONARY DISEASE W (ACUTE) EXACERBATION (2) SIADH (syndrome of inappropriate ADH production) Current Visit: Yes Status: Acute (3) Hypertension Current Visit: No Status: Chronic Code(s): I10 - ESSENTIAL (PRIMARY) HYPERTENSION (4) Hypothyroid Current Visit: No Status: Chronic Code(s): E03.9 - HYPOTHYROIDISM, UNSPECIFIED (5) Morbid obesity Current Visit: No Status: Chronic Code(s): E66.01 - MORBID (SEVERE) OBESITY DUE TO EXCESS CALORIES (6) Hyperkalemia Current Visit: Yes Status: Acute Assessment & Plan: (1) COPD exacerbation Current Visit: Yes Status: Acute Onset Date: ~10/12/18 Assessment & Plan: - ceftriaxone, solumedrol, duonebs - will need OP f/u with Pulmonology- does not have a physician - D-dimer 2.03- CT negative for PE - 95% RA 08/25 - 2lNC- baseline RA - + wheezing 08/26 - sxs resolved Code(s): J44.1 - CHRONIC OBSTRUCTIVE PULMONARY DISEASE W (ACUTE) EXACERBATION (2) SIADH (syndrome of inappropriate ADH production) Current Visit: Yes Status: Acute Assessment & Plan: - Hold sertraline and fluoxetine - 1 L fluid restriction - Na+ 121- baseline 133 - Pt states she has felt worse since new SSRI added. - May need to consider alternate meds for depression OP that do not affect sodium levels. - urine os, urine Na+, Serum os, and ADH labs ordered - Urine Na+ 49 (3) Hypertension Current Visit: No Status: Chronic Qualifiers: Assessment & Plan: - stable- resume home meds - EF 40-45% Code(s): I10 - ESSENTIAL (PRIMARY) HYPERTENSION (4) Hypothyroid Current Visit: No Status: Chronic Qualifiers: Assessment & Plan: - resume synthroid Code(s): E03.9 - HYPOTHYROIDISM, UNSPECIFIED (5) Morbid obesity Current Visit: No Status: Chronic Assessment & Plan: - advised diet control Code(s): E66.01 - MORBID (SEVERE) OBESITY DUE TO EXCESS CALORIES (6) Hyperkalemia Current Visit: Yes Status: Acute Assessment & Plan: - K+ 5.2- lasix IV x1 gave - repeat K+ resolved. Code(s): E87.5 - HYPERKALEMIA - Discharge Discharge Date: 08/26/23 Disposition: Home, Self-Care Condition: Stable Prescriptions: New Bupropion HCl 150 mg Sr [Wellbutrin SR 150 MG] 150 mg PO BID 30 Days #60 tablet Continue Insulin Aspart [NovoLOG Insulin] 18 units SQ TIDWM Alendronate Sodium 70 mg [Fosamax 70 MG] 70 mg PO WEEKLY Levothyroxine Sodium 50 Mcg [Synthroid 50 Mcg] 50 mcg PO DAILY Pravastatin Sodium 80 mg PO DAILY Ergocalciferol (Vitamin D2) [Vitamin D] 50,000 unit PO WEEKLY Clopidogrel Bisulfate [PLAVIX Tablet] 75 mg PO HS Aspirin EC 81 mg [Ecotrin 81 mg] 81 mg PO DAILY Aripiprazole 10 mg [Abilify 10 MG] 10 mg PO DAILY Famotidine 20 mg [Pepcid 20 MG] 20 mg PO BID Lisinopril 10 mg [Zestril 10 MG] 10 mg PO DAILY Carbidopa/Levodopa [Carbidopa-Levodopa 25-250 Tab] 1 each PO TID Fluoxetine HCl 20 mg [Prozac 20 MG] 40 mg PO DAILY Sertraline HCl 50 mg [Zoloft 50 mg Tablet] 50 mg PO DAILY Ferrous Sulfate [Iron] 325 mg PO DAILY Amlodipine Besylate [Norvasc] 10 mg PO DAILY Insulin Glargine,Hum.rec.anlog [Lantus Solostar] 22 unit SQ HS Discontinued Albuterol Common Canister [Ventolin Common Canister] 2 puff IH Q6HPRN PRN PRN Reason: Shortness Of Breath Albuterol/Ipratropium 3ml Neb* [DUONEB 0.5-3 MG/3 ml Neb] 3 ml IH Q6H PRN 30 Days PRN Reason: Shortness Of Breath Additional Instructions: Follow up with Dr. Douglas next week for appointment as scheduled. Follow up with: CARLO BARBOZA [CONSULTING PHYSICIAN] - 09/10/23 10:30 am
--- NOTE | 2023-08-27 09:42 | PCM.DCORD ---
- Discharge Discharge Date: 08/26/23 Disposition: Home, Self-Care Condition: Stable Prescriptions: New Bupropion HCl 150 mg Sr [Wellbutrin SR 150 MG] 150 mg PO BID 30 Days #60 tablet Sodium Chloride 1,000 mg PO DAILY 14 Days #14 tablet Tiotropium [place] Inhaler [Spiriva 18 Mcg/Cap Inhaler] 1 puff IH DAILY 30 Days #1 inh Fluticasone/Salmeterol 500/50* [Advair 500-50 Diskus] 1 inh IH BID 30 Days #1 inh Prednisone 20 mg [Deltasone 20 mg] 40 mg PO DAILY 5 Days #10 tablet Azithromycin 250 mg [Zithromax 250 MG TABLET] 250 mg PO ZPACK #6 tablet Albuterol 8 gm Mdi Hfa [Ventolin Hfa MDI] 8 gm IH Q6H PRN PRN #1 PRN Reason: Shortness Of Breath/Wheezing Continue Insulin Aspart [NovoLOG Insulin] 18 units SQ TIDWM Alendronate Sodium 70 mg [Fosamax 70 MG] 70 mg PO WEEKLY Levothyroxine Sodium 50 Mcg [Synthroid 50 Mcg] 50 mcg PO DAILY Pravastatin Sodium 80 mg PO DAILY Ergocalciferol (Vitamin D2) [Vitamin D] 50,000 unit PO WEEKLY Clopidogrel Bisulfate [PLAVIX Tablet] 75 mg PO HS Aspirin EC 81 mg [Ecotrin 81 mg] 81 mg PO DAILY Aripiprazole 10 mg [Abilify 10 MG] 10 mg PO DAILY Famotidine 20 mg [Pepcid 20 MG] 20 mg PO BID Lisinopril 10 mg [Zestril 10 MG] 10 mg PO DAILY Carbidopa/Levodopa [Carbidopa-Levodopa 25-250 Tab] 1 each PO TID Ferrous Sulfate [Iron] 325 mg PO DAILY Amlodipine Besylate [Norvasc] 10 mg PO DAILY Insulin Glargine,Hum.rec.anlog [Lantus Solostar] 22 unit SQ HS Discontinued Albuterol Common Canister [Ventolin Common Canister] 2 puff IH Q6HPRN PRN PRN Reason: Shortness Of Breath Albuterol/Ipratropium 3ml Neb* [DUONEB 0.5-3 MG/3 ml Neb] 3 ml IH Q6H PRN 30 Days PRN Reason: Shortness Of Breath Instructions: Exacerbation of COPD (DC), Hyponatremia (DC) Additional Instructions: Follow up with Dr. Douglas next week for appointment as scheduled for ECHO results. Follow up with: CARLO BARBOZA [CONSULTING PHYSICIAN] - 09/10/23 10:30 am KIARA SHEPARD MD [Primary Care Provider] - 09/03/23 3:30 pm DAVE JONAS [NON-STAFF PHY W/O PRIVILEGES] - 09/08/23 3:30 pm (Appointment with Dr. Douglas's [facility] EDUCATOR. Please use west entrance.) Forms: Discharge Instructions
[2023-08-27 17:56] LABS: Osmolality, Urine 273 mOsmol/kg (.)
[2023-08-29] MEDS ORDERED: Fosamax 70 MG PO SCH (06:00)
[2023-08-29] MEDS ORDERED: VITAMIN D2 PO SCH (10:00)
[2023-08-29 10:13] LABS: Osmolality-Se/Pl 264 mOsmol/kg (280-301)
== END 2023-08-26 15:56 | disposition home or self-care (01) ==
LOC: ED 11:15 → MED SURG 14:57
PROVIDERS: ADMIT Internal Medicine; ATTEND Internal Medicine
DX: J44.1 Chronic obstructive pulmonary disease with (acute) exacerbation (principal); Z86.16 Personal history of COVID-19; D72.829 Elevated white blood cell count, unspecified; E87.5 Hyperkalemia; Z86.79 Personal history of other diseases of the circulatory system; I10 Essential (primary) hypertension; E11.9 Type 2 diabetes mellitus without complications; G20.A1 Parkinson's disease without dyskinesia, without mention of fluctuations; E22.2 Syndrome of inappropriate secretion of antidiuretic hormone; E03.9 Hypothyroidism, unspecified; E66.01 Morbid (severe) obesity due to excess calories; Z79.899 Other long term (current) drug therapy; Z79.01 Long term (current) use of anticoagulants; Z20.828 Contact with and (suspected) exposure to other viral communicable diseases
CPT/HCPCS: 0241U; 36000; 36415; 71260; 80053; 82947; 83880; 83930; 83935; 84134; 84300; 84484; 84588; 85025; 85027; 85379; 87040; 93005; 93041; 93306; 94640; 94760; 94762; 96365; 96367; 99285; 93268; J0456; J0696; J1817; J1940; J2920; J7609; A9270-GY; G0378

== ENCOUNTER 2023-09-13 23:54 | Observation (INO) | payer MEDICARE ==
--- NOTE | 2023-09-14 | ERPHSYRPT ---
- History of Present Illness Time Seen by Provider: 09/14/23 00:00 Source: patient, EMS, old records Exam Limitations: no limitations Physician History: This is an obese 78-year-old white female patient of Dr. Shepard who was brought to the emergency department by the ambulance service at the daughter's request because the patient insisted on coming to the emergency department because of frequent falls. The Wednesday prior to this evaluation patient fell and she complained to her daughter that her head felt foggy. Patient denied hitting her head at that time but the daughter was concerned that she may have hit her head. Today, prior to arrival she fell twice for unknown reasons. She has not felt dizzy. She has not felt weak. She has no pain complaints. Therefore, the patient insisted on having the daughter call the paramedics to bring her to the hospital for evaluation. Upon arrival to the emergency department room she has no complaints of pain, weakness, or dizziness. She "just wants to know why she is falling". Patient denies chest pain. She denies shortness of breath. Patient is on Plavix. Patient has a history of insulin-dependent diabetes, hypothyroidism, hypertension, gastroesophageal reflux disease, Parkinson disease, migraine headaches, peripheral neuropathy, peripheral vascular disease, COPD, depression and coronary artery disease (cardiac stents). Again, the patient states she has no complaints. Daughter and paramedics each provided independent, additional medical history. Occurred: this evening, other (As well as Wednesday prior to this evaluation) Reason for Fall: unknown Injuries/Pain Location: no injury Loss of Consciousness: no loss of consciousness (Per patient report) Severity of Pain-Max: none Severity of Pain-Current: none Modifying Factors: Improves With: nothing Associated Symptoms (Fall): denies symptoms Allergies/Adverse Reactions: acetaminophen [From Lortab] Allergy (Mild, Verified 09/13/23 23:57) Nausea alprazolam [From Xanax] Allergy (Mild, Verified 09/13/23 23:57) Altered mental status-per pt hydrocodone bitartrate [From Lortab] Allergy (Mild, Verified 09/13/23 23:57) Home Medications: Alendronate Sodium 70 mg [Fosamax 70 MG] 70 mg PO WEEKLY 09/01/17 [History] Ergocalciferol (Vitamin D2) [Vitamin D] 50,000 unit PO WEEKLY 09/01/17 [History] Insulin Aspart [NovoLOG Insulin] 18 units SQ TIDWM 09/01/17 [History] Levothyroxine Sodium 50 Mcg [Synthroid 50 Mcg] 50 mcg PO DAILY 09/01/17 [History] Pravastatin Sodium 80 mg PO DAILY 09/01/17 [History] Clopidogrel Bisulfate [PLAVIX Tablet] 75 mg PO HS 10/12/18 [History] Aripiprazole 10 mg [Abilify 10 MG] 10 mg PO DAILY 11/22/20 [History] Aspirin EC 81 mg [Ecotrin 81 mg] 81 mg PO DAILY 11/22/20 [History] Famotidine 20 mg [Pepcid 20 MG] 20 mg PO BID 09/19/21 [History] Lisinopril 10 mg [Zestril 10 MG] 10 mg PO DAILY 09/19/21 [History] Carbidopa/Levodopa [Carbidopa-Levodopa 25-250 Tab] 1 each PO TID 07/21/23 [History] Amlodipine Besylate [Norvasc] 10 mg PO DAILY 08/24/23 [History] Ferrous Sulfate [Iron] 325 mg PO DAILY 08/24/23 [History] Insulin Glargine,Hum.rec.anlog [Lantus Solostar] 22 unit SQ HS 08/24/23 [History] Fluticasone/Salmeterol 500/50* [Advair 500-50 Diskus] 1 each IH BID 09/14/23 [History] Spironolactone 25 mg [Aldactone 25 MG] 25 mg PO DAILY 09/14/23 [History] Hx Tetanus, Diphtheria Vaccination/Date Given: No Hx Influenza Vaccination/Date Given: Yes Hx Pneumococcal Vaccination/Date Given: Yes Travel Risk - Vaccine Status Have you recieved a Covid-19 vaccination: No - Review of Systems Constitutional: No Symptoms Eyes: No Symptoms Ears, Nose, & Throat: No Symptoms Respiratory: No Symptoms Cardiac: No Symptoms Abdominal/Gastrointestinal: No Symptoms Genitourinary Symptoms: No Symptoms Musculoskeletal: No Symptoms Skin: No Symptoms Neurological: Gait Changes Psychological: No Symptoms Endocrine: No Symptoms Hematologic/Lymphatic: No Symptoms Immunological/Allergic: No Symptoms All Other Systems: Reviewed and Negative - Past Medical History Pertinent Past Medical History: Yes Neurological History: Migraines, Peripheral Neuropathy ENT History: Cataracts Cardiac History: Coronary Artery Disease, Hypertension, Peripheral Vascular Disease Respiratory History: COPD, Pneumonia Endocrine Medical History: Diabetes Type II, Hypothyroidism Musculoskeletal History: Arthritis GI Medical History: No Pertinent History History: No Pertinent History Psycho-Social History: Depression Female Reproductive Disorders: Fibroids Other Medical History: Parkinsons - Past Surgical History Past Surgical History: Yes Neuro Surgical History: No Pertinent History Cardiac: No Pertinent History, Cardiac Catheterization, Cardiac Stent, Vascular Surgery Respiratory: No Pertinent History Gastrointestinal: No Pertinent History Genitourinary: No Pertinent History Musculoskeletal: Joint Replacement, Orthopedic Surgery Female Surgical History: Section, Hysterectomy Other Surgical History: stent placed to l leg, priti. knee replacement, left femur fx with hdwe placed,right hip repair with hdwe placed, right shoulder joint repair - Social History Smoking Status: Former smoker How long have you smoked: 50 yrs Exposure to second hand smoke: Yes Drug Use: none Patient Lives Alone: No - Nursing Vital Signs Nursing Vital Signs: Initial Vital Signs Temperature 97.5 F 09/13/23 23:58 Pulse Rate 76 09/13/23 23:58 Respiratory Rate 18 09/13/23 23:58 Blood Pressure 142/46 09/13/23 23:58 O2 Sat by Pulse Oximetry 97 09/13/23 23:58 Pain Scale Pain Intensity 0 - Natalie Coma Score Best Eye Response (Natalie): (4) open spontaneously Best Verbal Response (Natalie): (5) oriented Best Motor Response ([place]): (6) obeys commands Natalie Total: 15 - Physical Exam General Appearance: no apparent distress, alert, obese Head Injury: no evidence of injury Eye Exam: PERRL/EOMI, eyes nml inspection ENT Exam: airway nml, nml ext.inspection, No evidence of ENT injury Neck Exam: supple, trachea midline, full range of motion, normal alignment, normal inspection Respiratory/Chest Exam: normal breath sounds, No chest tenderness, No respiratory distress, No ecchymosis, No crepitus Cardiovascular Exam: normal heart sounds, regular rate/rhythm Gastrointestinal Exam: soft, normal bowel sounds, No tenderness Rectal Exam: not done Back Exam: normal inspection, normal range of motion, No CVA tenderness, No vertebral tenderness Extremity Exam: normal inspection, normal range of motion, pelvis stable Neurologic Exam: alert, oriented x 3, cooperative, normal mood/affect, sensation nml Skin Exam: normal color, warm, dry SpO2 Interpretation: normal O2 Delivery: Room Air - Course Nursing assessment & vital signs reviewed: Yes Ordered Tests: Active Orders 24 hr Category Date Time Status Cath for Specimen-Straight STAT Care 09/14/23 01:00 Active EKG-ER Only STAT Care 09/14/23 00:56 Active Pulse Oximetry (ED) STAT Care 09/14/23 00:56 Active CERVICAL SPINE WO CONTRAST [CT] Stat Exams 09/14/23 00:59 Completed HEAD WITHOUT CONTRAST [CT] Stat Exams 09/14/23 00:59 Completed CBC W DIFF Stat Lab 09/14/23 01:15 Completed CMP Stat Lab 09/14/23 01:15 Completed CULTURE,URINE Stat Lab 09/14/23 01:46 Received MAGNESIUM Stat Lab 09/14/23 01:15 Completed POTASSIUM, URINE RANDOM Stat Lab 09/14/23 01:45 Completed Sodium, Urine Stat Lab 09/14/23 01:45 Completed TROPONIN Q4H Lab 09/14/23 01:15 Completed TROPONIN Q4H Lab 09/14/23 05:00 Ordered TROPONIN Q4H Lab 09/14/23 09:00 Ordered UA W/RFX UR CULTURE Stat Lab 09/14/23 01:46 Completed Transfer Order Routine Transfer 09/14/23 Ordered Medication Summary Generic Name Dose Route Start Last Admin Trade Name Freq PRN Reason Stop Dose Admin Sodium Chloride 1,000 mls @ 100 mls/hr 09/14/23 02:00 09/14/23 01:55 Sodium Chloride 0.9% 1000 Ml IV 10/14/23 01:59 100 mls/hr .Q10H MICHAELA Administration Lab/Rad Data: Laboratory Result Diagrams 09/14/23 01:15 09/14/23 01:15 Laboratory Results 09/14/23 09/14/23 09/14/23 Range/Units 01:46 01:45 01:15 WBC (4.0-10.5) x10^3/uL RBC (4.1-5.4) x10^6/uL Hgb (12.0-16.0) g/dL Hct (35-47) % MCV (78-100) fL MCH (26-32) pg MCHC (32-36) g/dL RDW (11.5-14.0) % Plt Count (150-450) x10^3/uL MPV (7.5-11.0) fL Gran % (36.0-66.0) % Immature Gran % (Auto) (0.00-0.4) % Nucleat RBC Rel Count (0.00-0.1) % Eos # (Auto) (0-0.5) x10^3/uL Immature Gran # (Auto) (0.00-0.03) x10^3u/L Absolute Lymphs (auto) (1.0-4.6) x10^3/uL Absolute Monos (auto) (0.0-1.3) x10^3/uL Absolute Nucleated RBC (0.00-0.01) x10^3u/L Lymphocytes % (24.0-44.0) % Monocytes % (0.0-12.0) % Eosinophils % (0.00-5.0) % Basophils % (0.0-0.4) % Absolute Granulocytes (1.4-6.9) x10^3/uL Basophils # (0-0.4) x10^3/uL Sodium (137-145) mmol/L Potassium (3.5-5.1) mmol/L Chloride (98-107) mmol/L Carbon Dioxide (22-30) mmol/L Anion Gap (5-15) MEQ/L BUN (7-17) mg/dL Creatinine (0.52-1.04) mg/dL Estimated GFR ML/MIN Glucose (74-106) mg/dL Calcium (8.4-10.2) mg/dL Magnesium 1.8 (1.6-2.3) mg/dL Total Bilirubin (0.2-1.3) mg/dL AST (14-36) U/L ALT (0-35) U/L Alkaline Phosphatase (38-126) U/L Troponin I 0.013 (0.000-0.034) ng/mL Serum Total Protein (6.3-8.2) g/dL Albumin (3.5-5.0) g/dL Urine Color Yellow (Yellow) Urine Appearance Clear (Clear) Urine pH 7.0 (4.6-8.0) Ur Specific [place] <=1.005 (1.005-1.030) Urine Protein 30 (Negative) Urine Glucose (UA) Negative (Negative) mg/dL Urine Ketones Negative (Negative) Urine Blood Negative (Negative) Urine Nitrite Negative (Negative) Urine Bilirubin Negative (Negative) Urine Urobilinogen 0.2 (0.2) mg/dL Ur Leukocyte Esterase Negative (Negative) U Hyaline Cast (Auto) NONE SEEN (0-2) /LPF Urine Microscopic RBC 0-2 (0-5) /HPF Urine Microscopic WBC 0-2 (0-5) /HPF Ur Epithelial Cells None Seen (None Seen) /HPF Urine Bacteria None Seen (None Seen) /HPF Urine Culture Reflexed ORDERED SEPARATELY (NO) Urine Sodium 29 L (30-90) mmol/L Urine Potassium 9.5 H (0.1-0.7) mmol/L 09/14/23 09/14/23 Range/Units 01:15 01:15 WBC 9.8 (4.0-10.5) x10^3/uL RBC 3.87 L (4.1-5.4) x10^6/uL Hgb 11.5 L (12.0-16.0) g/dL Hct 34.1 L (35-47) % MCV 88.1 (78-100) fL MCH 29.7 (26-32) pg MCHC 33.7 (32-36) g/dL RDW 13.9 (11.5-14.0) % Plt Count 299 (150-450) x10^3/uL MPV 9.2 (7.5-11.0) fL Gran % 82.8 H (36.0-66.0) % Immature Gran % (Auto) 0.8 H (0.00-0.4) % Nucleat RBC Rel Count 0.0 (0.00-0.1) % Eos # (Auto) 0.11 (0-0.5) x10^3/uL Immature Gran # (Auto) 0.08 H (0.00-0.03) x10^3u/L Absolute Lymphs (auto) 0.78 L (1.0-4.6) x10^3/uL Absolute Monos (auto) 0.66 (0.0-1.3) x10^3/uL Absolute Nucleated RBC 0.00 (0.00-0.01) x10^3u/L Lymphocytes % 8.0 L (24.0-44.0) % Monocytes % 6.8 (0.0-12.0) % Eosinophils % 1.1 (0.00-5.0) % Basophils % 0.5 (0.0-0.4) % Absolute Granulocytes 8.08 H (1.4-6.9) x10^3/uL Basophils # 0.05 (0-0.4) x10^3/uL Sodium 117 L* (137-145) mmol/L Potassium 4.5 (3.5-5.1) mmol/L Chloride 84 L (98-107) mmol/L Carbon Dioxide 24 (22-30) mmol/L Anion Gap 13.5 (5-15) MEQ/L BUN 18 H (7-17) mg/dL Creatinine 0.90 (0.52-1.04) mg/dL Estimated GFR 65.8 ML/MIN Glucose 107 H (74-106) mg/dL Calcium 9.4 (8.4-10.2) mg/dL Magnesium (1.6-2.3) mg/dL Total Bilirubin 1.20 (0.2-1.3) mg/dL AST 33 (14-36) U/L ALT 13 (0-35) U/L Alkaline Phosphatase 71 (38-126) U/L Troponin I (0.000-0.034) ng/mL Serum Total Protein 7.1 (6.3-8.2) g/dL Albumin 4.1 (3.5-5.0) g/dL Urine Color (Yellow) Urine Appearance (Clear) Urine pH (4.6-8.0) Ur Specific [place] (1.005-1.030) Urine Protein (Negative) Urine Glucose (UA) (Negative) mg/dL Urine Ketones (Negative) Urine Blood (Negative) Urine Nitrite (Negative) Urine Bilirubin (Negative) Urine Urobilinogen (0.2) mg/dL Ur Leukocyte Esterase (Negative) U Hyaline Cast (Auto) (0-2) /LPF Urine Microscopic RBC (0-5) /HPF Urine Microscopic WBC (0-5) /HPF Ur Epithelial Cells (None Seen) /HPF Urine Bacteria (None Seen) /HPF Urine Culture Reflexed (NO) Urine Sodium (30-90) mmol/L Urine Potassium (0.1-0.7) mmol/L - Progress Progress: unchanged Progress Note: 09/14/23 01:08 This patient's medical issue is 1 of high complexity. Level of complexity in the work-up performed is based on review of the patient's past medical history, review of the patient's medication list, review of the patient's drug allergy list, history of present illness and physical findings on examination. This patient's medical work-up includes placement of an intravenous line, obtaining a CT scan of the head and neck without contrast, urinalysis, twelve-lead EKG, CBC, CMP, magnesium level, troponin level 09/14/23 03:18 CT scan of the head without contrast shows multifocal chronic lacunar infarct in the left basal ganglia otherwise study is within normal limits. This study was interpreted by radiologist and I reviewed the impression. CT scan of the cervical spine was interpreted by the radiologist and I reviewed the impression. There are degenerative changes noted without evidence of acute fracture or acute subluxation. 09/14/23 03:19 Discussed with : Gillian Counseled pt/family regarding: lab results, diagnosis, need for follow-up, rad results Medical Desision Making - Independent Historian Additional History obtained from: Child - Discussion of managment Care discussed with:: hospitalist (Spoke with hospitalist Dr. Sousa) Reviewed:: Test results, Need for additional workup Agreed on:: place in obs Will see patient: in hospital - Diagnostic Testing Diagnostic test were ordered, analyzed, and reviewed by me: Yes Radiological Interpretation: Reviewed by me, Teleradiologist Report - Risk of complications The pt has a high risk of morbidity or mortality based on: Decision regarding hospitilization or escalation of hosp level of care - Departure Departure Disposition: Observation Clinical Impression: Hyponatremia, Frequent falls Condition: Stable Critical Care Time: No Referrals: KIARA SHEPARD MD [Primary Care Provider] - Follow up/PCP as directed
[2023-09-14 01:18] LABS: Absolute Neutrophil Ct (ANC) 8.08 x10^3/uL (1.4-6.9); BASOPHIL % 0.5 % (0.0-0.4); Basophil (Absolute #) 0.05 x10^3/uL (0-0.4); Eosinophil % 1.1 % (0.00-5.0); Eosinophil (Absolute #) 0.11 x10^3/uL (0-0.5); Hematocrit 34.1 % (35-47); Hemoglobin 11.5 g/dL (12.0-16.0); IMMATURE GRAN # 0.08 x10^3u/L (0.00-0.03); IMMATURE GRAN % 0.8 % (0.00-0.4); Lymphocyte (Absolute #) 0.78 x10^3/uL (1.0-4.6); Mean Cell Volume 88.1 fL (78-100); Mean Corpuscular Hemoglobin 29.7 pg (26-32); Mean Corpuscular Hgb Concent. 33.7 g/dL (32-36); Mean Platelet Volume 9.2 fL (7.5-11.0); Monocyte (Absolute #) 0.66 x10^3/uL (0.0-1.3); Monocytes % 6.8 % (0.0-12.0); Neutrophil % 82.8 % (36.0-66.0); Platelet Count 299 x10^3/uL (150-450); Red Blood Count 3.87 x10^6/uL (4.1-5.4); Red Cell Distribution Width 13.9 % (11.5-14.0); White Blood Count 9.8 x10^3/uL (4.0-10.5)
[2023-09-14 01:39] LABS: ALBUMIN 4.1 g/dL (3.5-5.0); ANION GAP 13.5 MEQ/L (5-15); BILIRUBIN,TOTAL 1.2 mg/dL (0.2-1.3); Calcium 9.4 mg/dL (8.4-10.2); Creatinine 1 0.9 mg/dL (0.52-1.04); EST GLOMERULAR FILTRATION RATE 65.8 ML/MIN; Potassium 4.5 mmol/L (3.5-5.1); Total Protein 7.1 g/dL (6.3-8.2)
[2023-09-14 01:50] LABS: MAGNESIUM 1.8 mg/dL (1.6-2.3); TROPONIN 0.013 ng/mL (0.000-0.034)
[2023-09-14] MEDS ORDERED: Sodium Chloride 0.9% 1000 ML 1,000 ML ONE (01:55)
[2023-09-14 01:57] LABS: Appearance Clear (Clear); Bacteria None Seen /HPF (None Seen); Bilirubin Negative (Negative); Blood Negative (Negative); Epithelial Cells None Seen /HPF (None Seen); Glucose, Urine Negative (Negative); Hyaline Casts NONE SEEN /LPF (0-2); Ketones Negative (Negative); Leukocyte Esterase Negative (Negative); Nitrite Negative (Negative); Protein,Urine Dip 30 (Negative); RBC 0-2 /HPF (0-5); Specific Gravity <=1.005 (1.005-1.030); Urobilinogen 0.2 mg/dL (0.2); WBC 0-2 /HPF (0-5)
[2023-09-14 01:58] LABS: ADD URINE CULTURE? ORDERED SEPARATELY (NO)
[2023-09-14] MEDS ORDERED: Sodium Chloride 0.9% 1000 ML 1,000 ML IV SCH ×3 (02:00→10:45)
[2023-09-14 02:01] LABS: POTASSIUM, URINE RANDOM 9.5 mmol/L (0.1-0.7)
--- NOTE | 2023-09-14 02:27 | XRAY ---
CLINICAL HISTORY:Frequent falls COMPARISON:None TECHNIQUE:Contiguous, multislice, non-enhanced CT scan of the cervical spine in the axial plane with multiplanar reconstructions. FINDINGS: Reduced cervical lordotic curvature suggestive of muscle spasm. Degenerative changes mainly at C5, C6, and C7 vertebrae as evidenced by marginal osteophytosis. No suspicious focal bony lesions. Preserved spinal canal with no retropulsed fragments. Mild decreased height of C6 vertebra noted. Mild degree of anterolisthesis of C4 over C5. Facetal arthritic changes at multiple levels, more on right side. At C2-C3, C3-C4 and C4-C5, no significant disc protrusion. At C5-C6 and C6-C7 levels, there is posterior disc bulge compressing the thecal sac and indenting lateral recess causing neuroforaminal narrowing. Unremarkable craniocervical junction. Atlantodental osteoarthritic changes seen. No paraspinal masses or collection. IMPRESSION: Reduced cervical lordotic curvature suggestive of muscle spasm. No acute osseous abnormality. Cervical spondylodegenerative changes with marginal osteophytes and degenerative disks especially at C5-C6 and C6-C7 levels as described. Rest of the findings as detailed above. Electronically Signed by: Jose Elias Perez MD. (09/14/2023 01:26:31 SOURCING ASSOCIATE)
--- NOTE | 2023-09-14 02:29 | XRAY ---
CLINICAL HISTORY:Frequent falls COMPARISON:None TECHNIQUE:Axial noncontrast CT scan of the brain was performed from the skull base to the high parietal region. Coronal and sagittal reformats are available. FINDINGS: Multifocal chronic lacunar infarcts are seen in the left basal ganglia, right insular cortex and devin. Lu-white matter differentiation is intact and there are no features to suggest acute ischemic infarction. However, correlation with MRI brain may be obtained for further evaluation if clinically indicated. No acute intracranial hemorrhage or space occupying lesion is present in brain. No extradural/subdural hematoma or collection is present. There are slightly accentuated white matter hypodensities in both the cerebral hemispheres suggestive of mild microvascular ischemic changes. Age-appropriate involutional changes are seen in the brain evident by widened extra-axial CSF spaces and deepened cortical sulci. Normal ventricular system. No midline shift seen or herniation seen. Bilateral thalami are unremarkable. Grossly normal sella and suprasellar structures. Posterior fossa structures appear unremarkable. No lesion seen in both orbital cavities and at both cerebello-pontine angles. Visualized paranasal sinuses are well pneumatized except for a small mucus retention cyst in the left maxillary sinus. No aggressive osseous lesion identified. IMPRESSION: Multifocal chronic lacunar infarcts are seen in the left basal ganglia, right insular cortex and devin. Lu-white matter differentiation is intact and there are no features to suggest acute ischemic infarction. However, correlation with MRI brain may be obtained for further evaluation if clinically indicated. Mild microvascular ischemic changes and age-appropriate involutional changes are seen in the brain. No acute intracranial hemorrhage. No space occupying lesion seen on this non-contrast study. Electronically Signed by: Jose Elias Perez MD. (09/14/2023 01:28:14 MODELING TEACHER)
[2023-09-14] MEDS ORDERED: Zofran 4 MG/2 ML VIAL IV PRN (03:41)
[2023-09-14] MEDS ORDERED: HUMULIN R SQ PRN (03:41)
[2023-09-14 05:14] LABS: Absolute Neutrophil Ct (ANC) 7.07 x10^3/uL (1.4-6.9); BASOPHIL % 0.3 % (0.0-0.4); Basophil (Absolute #) 0.03 x10^3/uL (0-0.4); Eosinophil % 0.9 % (0.00-5.0); Eosinophil (Absolute #) 0.08 x10^3/uL (0-0.5); Hematocrit 32.5 % (35-47); Hemoglobin 10.9 g/dL (12.0-16.0); IMMATURE GRAN # 0.06 x10^3u/L (0.00-0.03); IMMATURE GRAN % 0.7 % (0.00-0.4); Lymphocyte (Absolute #) 0.83 x10^3/uL (1.0-4.6); Lymphocytes % 9.6 % (24.0-44.0); Mean Cell Volume 87.1 fL (78-100); Mean Corpuscular Hemoglobin 29.2 pg (26-32); Mean Corpuscular Hgb Concent. 33.5 g/dL (32-36); Mean Platelet Volume 9.7 fL (7.5-11.0); Monocyte (Absolute #) 0.61 x10^3/uL (0.0-1.3); Neutrophil % 81.5 % (36.0-66.0); Platelet Count 284 x10^3/uL (150-450); Red Blood Count 3.73 x10^6/uL (4.1-5.4); White Blood Count 8.7 x10^3/uL (4.0-10.5)
[2023-09-14 05:27] LABS: ALBUMIN 3.9 g/dL (3.5-5.0); ANION GAP 10.7 MEQ/L (5-15); BILIRUBIN,TOTAL 1.2 mg/dL (0.2-1.3); Calcium 9.1 mg/dL (8.4-10.2); Creatinine 1 0.89 mg/dL (0.52-1.04); EST GLOMERULAR FILTRATION RATE 66.7 ML/MIN; Potassium 4.4 mmol/L (3.5-5.1); Total Protein 6.8 g/dL (6.3-8.2)
--- NOTE | 2023-09-14 06:17 | PCM.HP ---
History of Present Illness - Chief Complaint Chief Complaint: Hyponatremia History of Present Illness: is a 78 year old female. She has chronic hyponatremia and presents with recurrent falls. Her head CT did not show any pathology but her Na was 117. Denies headaches, nausea, vomiting, diarrhea, fevers, blurry vision, difficulty speaking, weakness, loss of sensation. She has been taking her salt tablets but is also taking several blood pressure medications. - Review of Systems Constitutional: No Fever, No Chills Eyes: No Symptoms Ears, Nose, & Throat: No Symptoms Respiratory: No Cough, No Short Of Breath Cardiac: No Chest Pain, No Edema, No Syncope Abdominal/Gastrointestinal: No Abdominal Pain, No Nausea, No Vomiting, No Diarrhea Genitourinary Symptoms: No Dysuria Musculoskeletal: No Back Pain, No Neck Pain Skin: No Rash Neurological: No Dizziness, No Focal Weakness, No Sensory Changes Psychological: No Symptoms Endocrine: No Symptoms Hematologic/Lymphatic: No Symptoms Immunological/Allergic: No Symptoms Medications & Allergies Home Medications: Home Medication List Alendronate Sodium 70 mg [Fosamax 70 MG] 70 mg PO WEEKLY 09/01/17 [History Confirmed 09/14/23] Ergocalciferol (Vitamin D2) [Vitamin D] 50,000 unit PO WEEKLY 09/01/17 [History Confirmed 09/14/23] Insulin Aspart [NovoLOG Insulin] 18 units SQ TIDWM 09/01/17 [History Confirmed 09/14/23] Levothyroxine Sodium 50 Mcg [Synthroid 50 Mcg] 50 mcg PO DAILY 09/01/17 [History Confirmed 09/14/23] Pravastatin Sodium 80 mg PO DAILY 09/01/17 [History Confirmed 09/14/23] Clopidogrel Bisulfate [PLAVIX Tablet] 75 mg PO HS 10/12/18 [History Confirmed 09/14/23] Aripiprazole 10 mg [Abilify 10 MG] 10 mg PO DAILY 11/22/20 [History Confirmed 09/14/23] Aspirin EC 81 mg [Ecotrin 81 mg] 81 mg PO DAILY 11/22/20 [History Confirmed 09/14/23] Famotidine 20 mg [Pepcid 20 MG] 20 mg PO BID 09/19/21 [History Confirmed 09/14/23] Lisinopril 10 mg [Zestril 10 MG] 10 mg PO DAILY 09/19/21 [History Confirmed 09/14/23] Amlodipine Besylate [Norvasc] 10 mg PO DAILY 08/24/23 [History Confirmed 09/14/23] Ferrous Sulfate [Iron] 325 mg PO DAILY 08/24/23 [History Confirmed 09/14/23] Insulin Glargine,Hum.rec.anlog [Lantus Solostar] 22 unit SQ HS 08/24/23 [History Confirmed 09/14/23] Bupropion HCl 150 mg Sr [Wellbutrin SR 150 MG] 150 mg PO BID 30 Days #60 tablet 08/26/23 [Rx Confirmed 09/14/23] Sodium Chloride 1,000 mg PO DAILY 14 Days #14 tablet 08/26/23 [Rx Confirmed 09/14/23] Albuterol 8 gm Mdi Hfa [Ventolin Hfa MDI] 1 - 2 puff IH Q4-6HPRN PRN 09/14/23 [History Confirmed 09/14/23] Carbidopa/Levodopa [Carbidopa-Levo ER 25-100 Tab] 1 each PO BID 09/14/23 [History Confirmed 09/14/23] Carvedilol 3.125 mg [Coreg 3.125 MG] 3.125 mg PO BID 09/14/23 [History Confirmed 09/14/23] Fluticasone Propion/Salmeterol [Wixela 500-50 Inhub] 1 puff IH BID 09/14/23 [History Confirmed 09/14/23] Spironolactone 25 mg [Aldactone 25 MG] 25 mg PO DAILY 09/14/23 [History Confirmed 09/14/23] Allergies/Adverse Reactions: Allergies Allergy/AdvReac Type Severity Reaction Status Date / Time acetaminophen [From Lortab] Allergy Mild Nausea Verified 09/14/23 04:08 alprazolam [From Xanax] Allergy Mild Verified 09/14/23 04:08 hydrocodone bitartrate Allergy Mild Verified 09/14/23 04:08 [From Lortab] - Past Medical History Past Medical History: Yes Neurological History: Migraines, Peripheral Neuropathy ENT History: Cataracts Cardiac History: Coronary Artery Disease, Hypertension, Peripheral Vascular Disease Respiratory History: COPD, Pneumonia Endocrine Medical History: Diabetes Type II, Hypothyroidism Musculoskelatal History: Arthritis GI Medical History: No Pertinent History History: No Pertinent History Pyscho-Social History: Depression Reproductive Disorders: Fibroids Comment: Parkinsons - Female History Are you now?: No - Past Surgical History Past Surgical History: Yes Neuro Surgical History: No Pertinent History Cardiac History: No Pertinent History, Cardiac Catheterization, Cardiac Stent, Vascular Surgery Respiratory Surgery: No Pertinent History GI Surgical History: No Pertinent History Genitourinary Surgical Hx: No Pertinent History Musculskeletal Surgical Hx: Joint Replacement, Orthopedic Surgery Female Surgical History: Section, Hysterectomy Other Surgical History: stent placed to l leg, priti. knee replacement, left femur fx with hdwe placed,right hip repair with hdwe placed, right shoulder joint repair - Social History Smoking Status: Former smoker How long have you smoked: 50 yrs Exposure to second hand smoke: Yes Alcohol: None Drug Use: none - Physical Exam Vital Signs: Vital Signs - 24 hr Temp Pulse Resp BP BP Pulse Ox 09/14/23 03:49 97.9 F 80 26 H 143/71 99 09/14/23 03:00 77 14 118/74 94 L 09/14/23 02:31 76 18 116/27 94 L 09/14/23 02:13 74 21 124/57 95 09/14/23 01:01 76 22 105/30 96 09/14/23 00:56 97 09/14/23 00:31 76 17 104/46 96 09/14/23 00:11 75 19 108/47 97 09/14/23 00:01 74 21 126/59 97 09/13/23 23:58 97.5 F 76 18 142/46 97 General Appearance: no apparent distress, alert Neurologic Exam: alert, oriented x 3, cooperative, normal mood/affect, nml cerebellar function, nml station & gait, sensation nml, No motor deficits Eye Exam: PERRL/EOMI, eyes nml inspection Ears, Nose, Throat Exam: normal ENT inspection, TMs normal, pharynx normal, moist mucous membranes Neck Exam: normal inspection, non-tender, supple, full range of motion Respiratory Exam: normal breath sounds, lungs clear, No respiratory distress Cardiovascular Exam: regular rate/rhythm, normal heart sounds, normal peripheral pulses Gastrointestinal/Abdomen Exam: soft, normal bowel sounds, No tenderness, No mass Back Exam: normal inspection, normal range of motion, No CVA tenderness, No vertebral tenderness Extremity Exam: normal inspection, normal range of motion, pelvis stable Skin Exam: normal color, warm, dry, No rash Wound Assessment: Skin/Wound Assessment Wound/Incision Assessment Start: 09/14/23 04:18 Text: Status: Active Freq: Q6H Protocol: Document 09/14/23 04:18 MP (Rec: 09/14/23 04:35 MP [id number]) Wound Photo Photo Taken No Lymphatic Exam: No adenopathy Results - Labs Lab/Micro Results: Lab Results-Last 24 Hours 09/14/23 09/14/23 09/14/23 Range/Units 01:15 01:15 01:15 WBC 9.8 (4.0-10.5) x10^3/uL RBC 3.87 L (4.1-5.4) x10^6/uL Hgb 11.5 L (12.0-16.0) g/dL Hct 34.1 L (35-47) % MCV 88.1 (78-100) fL MCH 29.7 (26-32) pg MCHC 33.7 (32-36) g/dL RDW 13.9 (11.5-14.0) % Plt Count 299 (150-450) x10^3/uL MPV 9.2 (7.5-11.0) fL Gran % 82.8 H (36.0-66.0) % Immature Gran % (Auto) 0.8 H (0.00-0.4) % Nucleat RBC Rel Count 0.0 (0.00-0.1) % Eos # (Auto) 0.11 (0-0.5) x10^3/uL Immature Gran # (Auto) 0.08 H (0.00-0.03) x10^3u/L Absolute Lymphs (auto) 0.78 L (1.0-4.6) x10^3/uL Absolute Monos (auto) 0.66 (0.0-1.3) x10^3/uL Absolute Nucleated RBC 0.00 (0.00-0.01) x10^3u/L Lymphocytes % 8.0 L (24.0-44.0) % Monocytes % 6.8 (0.0-12.0) % Eosinophils % 1.1 (0.00-5.0) % Basophils % 0.5 (0.0-0.4) % Absolute Granulocytes 8.08 H (1.4-6.9) x10^3/uL Basophils # 0.05 (0-0.4) x10^3/uL Sodium 117 L* (137-145) mmol/L Potassium 4.5 (3.5-5.1) mmol/L Chloride 84 L (98-107) mmol/L Carbon Dioxide 24 (22-30) mmol/L Anion Gap 13.5 (5-15) MEQ/L BUN 18 H (7-17) mg/dL Creatinine 0.90 (0.52-1.04) mg/dL Estimated GFR 65.8 ML/MIN Glucose 107 H (74-106) mg/dL Calcium 9.4 (8.4-10.2) mg/dL Magnesium 1.8 (1.6-2.3) mg/dL Total Bilirubin 1.20 (0.2-1.3) mg/dL AST 33 (14-36) U/L ALT 13 (0-35) U/L Alkaline Phosphatase 71 (38-126) U/L Troponin I 0.013 (0.000-0.034) ng/mL Serum Total Protein 7.1 (6.3-8.2) g/dL Albumin 4.1 (3.5-5.0) g/dL Urine Color (Yellow) Urine Appearance (Clear) Urine pH (4.6-8.0) Ur Specific Rocky (1.005-1.030) Urine Protein (Negative) Urine Glucose (UA) (Negative) mg/dL Urine Ketones (Negative) Urine Blood (Negative) Urine Nitrite (Negative) Urine Bilirubin (Negative) Urine Urobilinogen (0.2) mg/dL Ur Leukocyte Esterase (Negative) U Hyaline Cast (Auto) (0-2) /LPF Urine Microscopic RBC (0-5) /HPF Urine Microscopic WBC (0-5) /HPF Ur Epithelial Cells (None Seen) /HPF Urine Bacteria (None Seen) /HPF Urine Culture Reflexed (NO) Urine Sodium (30-90) mmol/L Urine Potassium (0.1-0.7) mmol/L 09/14/23 09/14/23 09/14/23 Range/Units 01:45 01:46 04:37 WBC 8.7 (4.0-10.5) x10^3/uL RBC 3.73 L (4.1-5.4) x10^6/uL Hgb 10.9 L (12.0-16.0) g/dL Hct 32.5 L (35-47) % MCV 87.1 (78-100) fL MCH 29.2 (26-32) pg MCHC 33.5 (32-36) g/dL RDW 14.0 (11.5-14.0) % Plt Count 284 (150-450) x10^3/uL MPV 9.7 (7.5-11.0) fL Gran % 81.5 H (36.0-66.0) % Immature Gran % (Auto) 0.7 H (0.00-0.4) % Nucleat RBC Rel Count 0.0 (0.00-0.1) % Eos # (Auto) 0.08 (0-0.5) x10^3/uL Immature Gran # (Auto) 0.06 H (0.00-0.03) x10^3u/L Absolute Lymphs (auto) 0.83 L (1.0-4.6) x10^3/uL Absolute Monos (auto) 0.61 (0.0-1.3) x10^3/uL Absolute Nucleated RBC 0.00 (0.00-0.01) x10^3u/L Lymphocytes % 9.6 L (24.0-44.0) % Monocytes % 7.0 (0.0-12.0) % Eosinophils % 0.9 (0.00-5.0) % Basophils % 0.3 (0.0-0.4) % Absolute Granulocytes 7.07 H (1.4-6.9) x10^3/uL Basophils # 0.03 (0-0.4) x10^3/uL Sodium (137-145) mmol/L Potassium (3.5-5.1) mmol/L Chloride (98-107) mmol/L Carbon Dioxide (22-30) mmol/L Anion Gap (5-15) MEQ/L BUN (7-17) mg/dL Creatinine (0.52-1.04) mg/dL Estimated GFR ML/MIN Glucose (74-106) mg/dL Calcium (8.4-10.2) mg/dL Magnesium (1.6-2.3) mg/dL Total Bilirubin (0.2-1.3) mg/dL AST (14-36) U/L ALT (0-35) U/L Alkaline Phosphatase (38-126) U/L Troponin I (0.000-0.034) ng/mL Serum Total Protein (6.3-8.2) g/dL Albumin (3.5-5.0) g/dL Urine Color Yellow (Yellow) Urine Appearance Clear (Clear) Urine pH 7.0 (4.6-8.0) Ur Specific Rocky <=1.005 (1.005-1.030) Urine Protein 30 (Negative) Urine Glucose (UA) Negative (Negative) mg/dL Urine Ketones Negative (Negative) Urine Blood Negative (Negative) Urine Nitrite Negative (Negative) Urine Bilirubin Negative (Negative) Urine Urobilinogen 0.2 (0.2) mg/dL Ur Leukocyte Esterase Negative (Negative) U Hyaline Cast (Auto) NONE SEEN (0-2) /LPF Urine Microscopic RBC 0-2 (0-5) /HPF Urine Microscopic WBC 0-2 (0-5) /HPF Ur Epithelial Cells None Seen (None Seen) /HPF Urine Bacteria None Seen (None Seen) /HPF Urine Culture Reflexed ORDERED SEPARATELY (NO) Urine Sodium 29 L (30-90) mmol/L Urine Potassium 9.5 H (0.1-0.7) mmol/L 09/14/23 Range/Units 04:37 WBC (4.0-10.5) x10^3/uL RBC (4.1-5.4) x10^6/uL Hgb (12.0-16.0) g/dL Hct (35-47) % MCV (78-100) fL MCH (26-32) pg MCHC (32-36) g/dL RDW (11.5-14.0) % Plt Count (150-450) x10^3/uL MPV (7.5-11.0) fL Gran % (36.0-66.0) % Immature Gran % (Auto) (0.00-0.4) % Nucleat RBC Rel Count (0.00-0.1) % Eos # (Auto) (0-0.5) x10^3/uL Immature Gran # (Auto) (0.00-0.03) x10^3u/L Absolute Lymphs (auto) (1.0-4.6) x10^3/uL Absolute Monos (auto) (0.0-1.3) x10^3/uL Absolute Nucleated RBC (0.00-0.01) x10^3u/L Lymphocytes % (24.0-44.0) % Monocytes % (0.0-12.0) % Eosinophils % (0.00-5.0) % Basophils % (0.0-0.4) % Absolute Granulocytes (1.4-6.9) x10^3/uL Basophils # (0-0.4) x10^3/uL Sodium 116 L* (137-145) mmol/L Potassium 4.4 (3.5-5.1) mmol/L Chloride 86 L (98-107) mmol/L Carbon Dioxide 24 (22-30) mmol/L Anion Gap 10.7 (5-15) MEQ/L BUN 16 (7-17) mg/dL Creatinine 0.89 (0.52-1.04) mg/dL Estimated GFR 66.7 ML/MIN Glucose 121 H (74-106) mg/dL Calcium 9.1 (8.4-10.2) mg/dL Magnesium (1.6-2.3) mg/dL Total Bilirubin 1.20 (0.2-1.3) mg/dL AST 27 (14-36) U/L ALT 14 (0-35) U/L Alkaline Phosphatase 73 (38-126) U/L Troponin I (0.000-0.034) ng/mL Serum Total Protein 6.8 (6.3-8.2) g/dL Albumin 3.9 (3.5-5.0) g/dL Urine Color (Yellow) Urine Appearance (Clear) Urine pH (4.6-8.0) Ur Specific Rocky (1.005-1.030) Urine Protein (Negative) Urine Glucose (UA) (Negative) mg/dL Urine Ketones (Negative) Urine Blood (Negative) Urine Nitrite (Negative) Urine Bilirubin (Negative) Urine Urobilinogen (0.2) mg/dL Ur Leukocyte Esterase (Negative) U Hyaline Cast (Auto) (0-2) /LPF Urine Microscopic RBC (0-5) /HPF Urine Microscopic WBC (0-5) /HPF Ur Epithelial Cells (None Seen) /HPF Urine Bacteria (None Seen) /HPF Urine Culture Reflexed (NO) Urine Sodium (30-90) mmol/L Urine Potassium (0.1-0.7) mmol/L - Radiology Impressions Radiology Exams & Impressions: Radiology Procedures Category Date Time Status CERVICAL SPINE WO CONTRAST [CT] Stat Exams 09/14/23 00:59 Completed HEAD WITHOUT CONTRAST [CT] Stat Exams 09/14/23 00:59 Completed Assessment/Plan (1) Hyponatremia Current Visit: Yes Status: Acute Assessment & Plan: Chronic Hyopnatremia - reviewing records her Na has been between 115-125. She is on spirinolactone and lisinopril which may be exacerbating her hyponatremia. We will discontinue these medications. She is asymptomatic with a unremarkable head CT - so there is no henson to correct her sodium. Will resume her salt tables she is taking at home. Will also stop isotonic saline started by the ED. Check Na every 2 hours. If Na drops will start hypertonic saline at 3% infusing at 15 cc/hr. Code(s): E87.1 - HYPO-OSMOLALITY AND HYPONATREMIA Telemedicine Encounter - Telemedicine Encounter Telemedicine Encounter: The entirety of this encounter was performed via Telemedicine"
[2023-09-14 06:47] VITALS: RESP 16; O2SAT 94
[2023-09-14] MEDS ORDERED: Advair Hfa 230/21 Mcg COMMON CANISTER IH SCH (07:00)
[2023-09-14] MEDS: HUMALOG SQ SCH ×2 (07:48→12:19)
[2023-09-14] MEDS ORDERED: NON-FORMULARY ITEM (Insulin Aspart** [Novolog Insulin] 100 UNITS/ML Vial) SQ SCH (08:00)
[2023-09-14] MEDS ORDERED: WIXELA 500-50 INHUB IH SCH (10:00)
[2023-09-14] MEDS ORDERED: Sinemet CR 50/200 MG PO SCH (10:00)
[2023-09-14] MEDS ORDERED: ECOTRIN 81 MG PO SCH (10:00)
[2023-09-14] MEDS ORDERED: ZOCOR 20MG PO SCH (10:00)
[2023-09-14] MEDS ORDERED: NON-FORMULARY ITEM (Carbidopa/Levodopa [Carbidopa-Levo Er 25-100 Tab] 1 EACH Tablet.Er) PO SCH (10:00)
[2023-09-14] MEDS ORDERED: NON-FORMULARY ITEM (Pravastatin Sodium [Pravastatin Sodium] 40 MG Tablet) PO SCH (10:00)
[2023-09-14] MEDS ORDERED: Coreg 3.125 MG PO SCH (10:00)
[2023-09-14] MEDS ORDERED: Pepcid 20 MG PO SCH (10:00)
[2023-09-14] MEDS ORDERED: SYNTHROID 50 MCG PO SCH (10:00)
[2023-09-14] MEDS ORDERED: FEOSOL 325 MG PO SCH (10:00)
[2023-09-14] MEDS ORDERED: SODIUM CHLORIDE PO SCH ×2 (10:00→15:00)
[2023-09-14] MEDS ORDERED: Wellbutrin SR 150 MG PO SCH (10:00)
[2023-09-14] MEDS ORDERED: NORVASC 5 MG PO SCH (10:00)
[2023-09-14] MEDS ORDERED: NON-FORMULARY ITEM (Amlodipine Besylate [Norvasc] 10 MG Tablet) PO SCH (10:00)
[2023-09-14 11:17] VITALS: BP 136/63; PULSE 82; TEMP 97.8
--- NOTE | 2023-09-14 11:53 | PCM.DS ---
Discharge Summary Date of Admission: 09/14/23 03:34 Admitting Physician: AGUILA SANTANA MD Primary Care Provider: KIARA SHEPARD Allergies Allergies acetaminophen [From Lortab] Allergy (Mild, Verified 09/14/23 04:08) Nausea alprazolam [From Xanax] Allergy (Mild, Verified 09/14/23 04:08) Altered mental status-per pt hydrocodone bitartrate [From Lortab] Allergy (Mild, Verified 09/14/23 04:08) Hospital Summary - Hospital Course Hospital Course: is a 78 year old female. She has chronic hyponatremia and presents with recurrent falls. Her head CT did not show any pathology but her Na was 117. Denies headaches, nausea, vomiting, diarrhea, fevers, blurry vision, difficulty speaking, weakness, loss of sensation. She has been taking her salt tablets but is also taking several blood pressure medications. Patient does not follow with nephrology. Spoke to Uzma Ghotra IS ANALYST for Dr. Sanchez regarding hospital consult, recs to transfer pt to higher level of care with nephrology services for complete workup for hyponatremia. Patient accepted at [facility], awaiting transfer. New Diagnosis: Hyponatremia Latest Assessment & Plan (1) Hyponatremia Current Visit: Yes Status: Acute Assessment & Plan: Chronic Hyopnatremia - reviewing records her Na has been between 115-125. She is on spirinolactone and lisinopril which may be exacerbating her hyponatremia. We will discontinue these medications. She is asymptomatic with a unremarkable head CT - Resume her salt tablets at home with TID dosing. NS at 100ml/hr. Check Na every 4 hours. If Na drops consider hypertonic saline at 3% infusing at 15 cc/hr. I spent 35 minutes [id number] with the patient on the day of discharge performing discharge exam, discussing hospital stay and discharge instructions with patient and caregivers, preparation of discharge records, prescriptions & referral forms and addressing any questions/concerns the patient had as documented above. - Vitals & Intake/Output Vital Signs: Vital Signs Temperature 97.8 F 09/14/23 11:16 Pulse Rate 82 09/14/23 11:16 Respiratory Rate 16 09/14/23 11:16 Blood Pressure 136/63 09/14/23 11:16 O2 Sat by Pulse Oximetry 94 L 09/14/23 11:16 Intake & Output: Intake & Output 09/11/23 09/12/23 09/13/23 09/14/23 11:59 11:59 11:59 11:59 Intake Total 200 Output Total 2250 Balance -2049 Weight 119.1 kg - Lab Result Diagrams: 09/14/23 04:37 09/14/23 10:18 Lab Results-Last 24 Hrs: Lab Results-Last 24 Hours 09/14/23 09/14/23 09/14/23 Range/Units 01:15 01:15 01:15 WBC 9.8 (4.0-10.5) x10^3/uL RBC 3.87 L (4.1-5.4) x10^6/uL Hgb 11.5 L (12.0-16.0) g/dL Hct 34.1 L (35-47) % MCV 88.1 (78-100) fL MCH 29.7 (26-32) pg MCHC 33.7 (32-36) g/dL RDW 13.9 (11.5-14.0) % Plt Count 299 (150-450) x10^3/uL MPV 9.2 (7.5-11.0) fL Gran % 82.8 H (36.0-66.0) % Immature Gran % (Auto) 0.8 H (0.00-0.4) % Nucleat RBC Rel Count 0.0 (0.00-0.1) % Eos # (Auto) 0.11 (0-0.5) x10^3/uL Immature Gran # (Auto) 0.08 H (0.00-0.03) x10^3u/L Absolute Lymphs (auto) 0.78 L (1.0-4.6) x10^3/uL Absolute Monos (auto) 0.66 (0.0-1.3) x10^3/uL Absolute Nucleated RBC 0.00 (0.00-0.01) x10^3u/L Lymphocytes % 8.0 L (24.0-44.0) % Monocytes % 6.8 (0.0-12.0) % Eosinophils % 1.1 (0.00-5.0) % Basophils % 0.5 (0.0-0.4) % Absolute Granulocytes 8.08 H (1.4-6.9) x10^3/uL Basophils # 0.05 (0-0.4) x10^3/uL Sodium 117 L* (137-145) mmol/L Potassium 4.5 (3.5-5.1) mmol/L Chloride 84 L (98-107) mmol/L Carbon Dioxide 24 (22-30) mmol/L Anion Gap 13.5 (5-15) MEQ/L BUN 18 H (7-17) mg/dL Creatinine 0.90 (0.52-1.04) mg/dL Estimated GFR 65.8 ML/MIN Glucose 107 H (74-106) mg/dL POC Glucometer (74 to 106) mg/dL Calcium 9.4 (8.4-10.2) mg/dL Magnesium 1.8 (1.6-2.3) mg/dL Total Bilirubin 1.20 (0.2-1.3) mg/dL AST 33 (14-36) U/L ALT 13 (0-35) U/L Alkaline Phosphatase 71 (38-126) U/L Troponin I 0.013 (0.000-0.034) ng/mL Serum Total Protein 7.1 (6.3-8.2) g/dL Albumin 4.1 (3.5-5.0) g/dL Urine Color (Yellow) Urine Appearance (Clear) Urine pH (4.6-8.0) Ur Specific [place] (1.005-1.030) Urine Protein (Negative) Urine Glucose (UA) (Negative) mg/dL Urine Ketones (Negative) Urine Blood (Negative) Urine Nitrite (Negative) Urine Bilirubin (Negative) Urine Urobilinogen (0.2) mg/dL Ur Leukocyte Esterase (Negative) U Hyaline Cast (Auto) (0-2) /LPF Urine Microscopic RBC (0-5) /HPF Urine Microscopic WBC (0-5) /HPF Ur Epithelial Cells (None Seen) /HPF Urine Bacteria (None Seen) /HPF Urine Culture Reflexed (NO) Urine Sodium (30-90) mmol/L Urine Potassium (0.1-0.7) mmol/L 09/14/23 09/14/23 09/14/23 Range/Units 01:45 01:46 04:37 WBC (4.0-10.5) x10^3/uL RBC (4.1-5.4) x10^6/uL Hgb (12.0-16.0) g/dL Hct (35-47) % MCV (78-100) fL MCH (26-32) pg MCHC (32-36) g/dL RDW (11.5-14.0) % Plt Count (150-450) x10^3/uL MPV (7.5-11.0) fL Gran % (36.0-66.0) % Immature Gran % (Auto) (0.00-0.4) % Nucleat RBC Rel Count (0.00-0.1) % Eos # (Auto) (0-0.5) x10^3/uL Immature Gran # (Auto) (0.00-0.03) x10^3u/L Absolute Lymphs (auto) (1.0-4.6) x10^3/uL Absolute Monos (auto) (0.0-1.3) x10^3/uL Absolute Nucleated RBC (0.00-0.01) x10^3u/L Lymphocytes % (24.0-44.0) % Monocytes % (0.0-12.0) % Eosinophils % (0.00-5.0) % Basophils % (0.0-0.4) % Absolute Granulocytes (1.4-6.9) x10^3/uL Basophils # (0-0.4) x10^3/uL Sodium (137-145) mmol/L Potassium (3.5-5.1) mmol/L Chloride (98-107) mmol/L Carbon Dioxide (22-30) mmol/L Anion Gap (5-15) MEQ/L BUN (7-17) mg/dL Creatinine (0.52-1.04) mg/dL Estimated GFR ML/MIN Glucose (74-106) mg/dL POC Glucometer (74 to 106) mg/dL Calcium (8.4-10.2) mg/dL Magnesium (1.6-2.3) mg/dL Total Bilirubin (0.2-1.3) mg/dL AST (14-36) U/L ALT (0-35) U/L Alkaline Phosphatase (38-126) U/L Troponin I 0.014 (0.000-0.034) ng/mL Serum Total Protein (6.3-8.2) g/dL Albumin (3.5-5.0) g/dL Urine Color Yellow (Yellow) Urine Appearance Clear (Clear) Urine pH 7.0 (4.6-8.0) Ur Specific [place] <=1.005 (1.005-1.030) Urine Protein 30 (Negative) Urine Glucose (UA) Negative (Negative) mg/dL Urine Ketones Negative (Negative) Urine Blood Negative (Negative) Urine Nitrite Negative (Negative) Urine Bilirubin Negative (Negative) Urine Urobilinogen 0.2 (0.2) mg/dL Ur Leukocyte Esterase Negative (Negative) U Hyaline Cast (Auto) NONE SEEN (0-2) /LPF Urine Microscopic RBC 0-2 (0-5) /HPF Urine Microscopic WBC 0-2 (0-5) /HPF Ur Epithelial Cells None Seen (None Seen) /HPF Urine Bacteria None Seen (None Seen) /HPF Urine Culture Reflexed ORDERED SEPARATELY (NO) Urine Sodium 29 L (30-90) mmol/L Urine Potassium 9.5 H (0.1-0.7) mmol/L 09/14/23 09/14/23 09/14/23 Range/Units 04:37 04:37 07:02 WBC 8.7 (4.0-10.5) x10^3/uL RBC 3.73 L (4.1-5.4) x10^6/uL Hgb 10.9 L (12.0-16.0) g/dL Hct 32.5 L (35-47) % MCV 87.1 (78-100) fL MCH 29.2 (26-32) pg MCHC 33.5 (32-36) g/dL RDW 14.0 (11.5-14.0) % Plt Count 284 (150-450) x10^3/uL MPV 9.7 (7.5-11.0) fL Gran % 81.5 H (36.0-66.0) % Immature Gran % (Auto) 0.7 H (0.00-0.4) % Nucleat RBC Rel Count 0.0 (0.00-0.1) % Eos # (Auto) 0.08 (0-0.5) x10^3/uL Immature Gran # (Auto) 0.06 H (0.00-0.03) x10^3u/L Absolute Lymphs (auto) 0.83 L (1.0-4.6) x10^3/uL Absolute Monos (auto) 0.61 (0.0-1.3) x10^3/uL Absolute Nucleated RBC 0.00 (0.00-0.01) x10^3u/L Lymphocytes % 9.6 L (24.0-44.0) % Monocytes % 7.0 (0.0-12.0) % Eosinophils % 0.9 (0.00-5.0) % Basophils % 0.3 (0.0-0.4) % Absolute Granulocytes 7.07 H (1.4-6.9) x10^3/uL Basophils # 0.03 (0-0.4) x10^3/uL Sodium 116 L* (137-145) mmol/L Potassium 4.4 (3.5-5.1) mmol/L Chloride 86 L (98-107) mmol/L Carbon Dioxide 24 (22-30) mmol/L Anion Gap 10.7 (5-15) MEQ/L BUN 16 (7-17) mg/dL Creatinine 0.89 (0.52-1.04) mg/dL Estimated GFR 66.7 ML/MIN Glucose 121 H (74-106) mg/dL POC Glucometer 132 H (74 to 106) mg/dL Calcium 9.1 (8.4-10.2) mg/dL Magnesium (1.6-2.3) mg/dL Total Bilirubin 1.20 (0.2-1.3) mg/dL AST 27 (14-36) U/L ALT 14 (0-35) U/L Alkaline Phosphatase 73 (38-126) U/L Troponin I (0.000-0.034) ng/mL Serum Total Protein 6.8 (6.3-8.2) g/dL Albumin 3.9 (3.5-5.0) g/dL Urine Color (Yellow) Urine Appearance (Clear) Urine pH (4.6-8.0) Ur Specific [place] (1.005-1.030) Urine Protein (Negative) Urine Glucose (UA) (Negative) mg/dL Urine Ketones (Negative) Urine Blood (Negative) Urine Nitrite (Negative) Urine Bilirubin (Negative) Urine Urobilinogen (0.2) mg/dL Ur Leukocyte Esterase (Negative) U Hyaline Cast (Auto) (0-2) /LPF Urine Microscopic RBC (0-5) /HPF Urine Microscopic WBC (0-5) /HPF Ur Epithelial Cells (None Seen) /HPF Urine Bacteria (None Seen) /HPF Urine Culture Reflexed (NO) Urine Sodium (30-90) mmol/L Urine Potassium (0.1-0.7) mmol/L 09/14/23 09/14/23 09/14/23 Range/Units 10:18 10:18 11:37 WBC (4.0-10.5) x10^3/uL RBC (4.1-5.4) x10^6/uL Hgb (12.0-16.0) g/dL Hct (35-47) % MCV (78-100) fL MCH (26-32) pg MCHC (32-36) g/dL RDW (11.5-14.0) % Plt Count (150-450) x10^3/uL MPV (7.5-11.0) fL Gran % (36.0-66.0) % Immature Gran % (Auto) (0.00-0.4) % Nucleat RBC Rel Count (0.00-0.1) % Eos # (Auto) (0-0.5) x10^3/uL Immature Gran # (Auto) (0.00-0.03) x10^3u/L Absolute Lymphs (auto) (1.0-4.6) x10^3/uL Absolute Monos (auto) (0.0-1.3) x10^3/uL Absolute Nucleated RBC (0.00-0.01) x10^3u/L Lymphocytes % (24.0-44.0) % Monocytes % (0.0-12.0) % Eosinophils % (0.00-5.0) % Basophils % (0.0-0.4) % Absolute Granulocytes (1.4-6.9) x10^3/uL Basophils # (0-0.4) x10^3/uL Sodium 121 L (137-145) mmol/L Potassium (3.5-5.1) mmol/L Chloride (98-107) mmol/L Carbon Dioxide (22-30) mmol/L Anion Gap (5-15) MEQ/L BUN (7-17) mg/dL Creatinine (0.52-1.04) mg/dL Estimated GFR ML/MIN Glucose (74-106) mg/dL POC Glucometer 107 H (74 to 106) mg/dL Calcium (8.4-10.2) mg/dL Magnesium (1.6-2.3) mg/dL Total Bilirubin (0.2-1.3) mg/dL AST (14-36) U/L ALT (0-35) U/L Alkaline Phosphatase (38-126) U/L Troponin I < 0.012 (0.000-0.034) ng/mL Serum Total Protein (6.3-8.2) g/dL Albumin (3.5-5.0) g/dL Urine Color (Yellow) Urine Appearance (Clear) Urine pH (4.6-8.0) Ur Specific [place] (1.005-1.030) Urine Protein (Negative) Urine Glucose (UA) (Negative) mg/dL Urine Ketones (Negative) Urine Blood (Negative) Urine Nitrite (Negative) Urine Bilirubin (Negative) Urine Urobilinogen (0.2) mg/dL Ur Leukocyte Esterase (Negative) U Hyaline Cast (Auto) (0-2) /LPF Urine Microscopic RBC (0-5) /HPF Urine Microscopic WBC (0-5) /HPF Ur Epithelial Cells (None Seen) /HPF Urine Bacteria (None Seen) /HPF Urine Culture Reflexed (NO) Urine Sodium (30-90) mmol/L Urine Potassium (0.1-0.7) mmol/L Micro Results-Entire Visit: Accuchecks Date 09/14/23 Time 07:31 - Radiology Exams Ordered Rad Exams-Entire Visit: Radiology Procedures Category Date Time Status CERVICAL SPINE WO CONTRAST [CT] Stat Exams 09/14/23 00:59 Completed HEAD WITHOUT CONTRAST [CT] Stat Exams 09/14/23 00:59 Completed - Procedures and Test Procedures and Tests throughout Hospitalization: Therapy Orders & Screens 09/14/23 03:41 PT Eval & Treat ( Order) ONCE Reason for Eval:: Strengthening, range of motion Diagnosis: Frequent falls Discharge Exam General Appearance: no apparent distress Neurologic Exam: alert, oriented x 3, cooperative Eye Exam: PERRL Ears, Nose, Throat Exam: normal ENT inspection Neck Exam: normal inspection Respiratory Exam: normal breath sounds, lungs clear Cardiovascular Exam: regular rate/rhythm, normal heart sounds Gastrointestinal/Abdomen Exam: soft, normal bowel sounds Pelvic Exam: deferred Rectal Exam: deferred Back Exam: normal inspection Extremity Exam: normal inspection Skin Exam: normal color Final Diagnosis/Problem List - Final Discharge Diagnosis/Problem (1) Hyponatremia Current Visit: Yes Status: Acute Code(s): E87.1 - HYPO-OSMOLALITY AND HYPONATREMIA (2) Hypothyroid Current Visit: Yes Status: Acute Code(s): E03.9 - HYPOTHYROIDISM, UNSPECIFIED (3) Frequent falls Current Visit: Yes Status: Acute Code(s): R29.6 - REPEATED FALLS (4) CAD (coronary artery disease) Current Visit: No Status: Chronic Code(s): I25.10 - ATHSCL HEART DISEASE OF [place] CORONARY ARTERY W/O ANG PCTRS - Discharge Disposition: DC TO [facility] Condition: Fair Prescriptions: New Sodium Chloride 1,000 mg PO TID tablet NaCl 0.9% 1000 ml [Sodium Chloride 0.9% 1000 ML] 100 ml IV .Q10H Ondansetron HCl 4 mg/2 ml [Zofran 4 MG/2 ML VIAL] 4 mg IV Q6H PRN PRN PRN Reason: Nausea/Vomiting Continue Insulin Aspart [NovoLOG Insulin] 18 units SQ TIDWM Alendronate Sodium 70 mg [Fosamax 70 MG] 70 mg PO WEEKLY Levothyroxine Sodium 50 Mcg [Synthroid 50 Mcg] 50 mcg PO DAILY Pravastatin Sodium 80 mg PO DAILY Ergocalciferol (Vitamin D2) [Vitamin D] 50,000 unit PO WEEKLY Clopidogrel Bisulfate [PLAVIX Tablet] 75 mg PO HS Aspirin EC 81 mg [Ecotrin 81 mg] 81 mg PO DAILY Aripiprazole 10 mg [Abilify 10 MG] 10 mg PO DAILY Famotidine 20 mg [Pepcid 20 MG] 20 mg PO BID Ferrous Sulfate [Iron] 325 mg PO DAILY Amlodipine Besylate [Norvasc] 10 mg PO DAILY Insulin Glargine,Hum.rec.anlog [Lantus Solostar] 22 unit SQ HS Bupropion HCl 150 mg Sr [Wellbutrin SR 150 MG] 150 mg PO BID 30 Days #60 tablet Spironolactone 25 mg [Aldactone 25 MG] 25 mg PO DAILY Carvedilol 3.125 mg [Coreg 3.125 MG] 3.125 mg PO BID Carbidopa/Levodopa [Carbidopa-Levo ER 25-100 Tab] 1 each PO BID Albuterol 8 gm Mdi Hfa [Ventolin Hfa MDI] 1 - 2 puff IH Q4-6HPRN PRN PRN Reason: Shortness Of Breath/Wheezing Fluticasone Propion/Salmeterol [Wixela 500-50 Inhub] 1 puff IH BID Discontinued Lisinopril 10 mg [Zestril 10 MG] 10 mg PO DAILY Sodium Chloride 1,000 mg PO DAILY 14 Days #14 tablet Follow up with: KIARA SHEPARD MD [Primary Care Provider] -
[2023-09-14] MEDS ORDERED: Lantus Insulin SQ SCH (22:00)
[2023-09-14] MEDS ORDERED: PLAVIX Tablet PO SCH (22:00)
[2023-09-14] MEDS ORDERED: NON-FORMULARY ITEM (Insulin Glargine,Hum.Rec.Anlog [Lantus Solostar] 100 UNIT/ML Ml) SQ SCH (22:00)
[2023-09-19] MEDS ORDERED: Fosamax 70 MG PO SCH (06:00)
[2023-09-19] MEDS ORDERED: VITAMIN D2 PO SCH (08:00)
== END 2023-09-14 13:44 | disposition home or self-care (01) ==
LOC: ED 23:54 → MED SURG 09-14 03:34
PROVIDERS: ADMIT Student in an Organized Health Care Education/Training Program; ATTEND Student in an Organized Health Care Education/Training Program
DX: E87.1 Hypo-osmolality and hyponatremia (principal); E03.9 Hypothyroidism, unspecified; R29.6 Repeated falls; I25.10 Atherosclerotic heart disease of native coronary artery without angina pectoris; I10 Essential (primary) hypertension; E11.9 Type 2 diabetes mellitus without complications; G20.A1 Parkinson's disease without dyskinesia, without mention of fluctuations; W19.XXXA Unspecified fall, initial encounter; Z79.01 Long term (current) use of anticoagulants; Z79.899 Other long term (current) drug therapy; Z20.828 Contact with and (suspected) exposure to other viral communicable diseases
CPT/HCPCS: 36415; 70450; 72125; 80053; 81001; 82947; 83735; 83935; 84133; 84295; 84300; 84484; 85025; 87086; 93005; 94760; 97161; P9612; Q3014; 93268; 99284; J1817; A9270-GY; G0378

== ENCOUNTER 2023-12-02 08:04 | Emergency (ER) | payer MEDICARE ==
--- NOTE | 2023-12-02 08:12 | ERPHSYRPT ---
- History of Present Illness Time Seen by Provider: 12/02/23 08:11 Source: patient Exam Limitations: no limitations Physician History: This is an obese 78-year-old white female patient of Dr. Shepard who presents to the emergency department with pain in her right shoulder and right knee anteriorly. The pain has been present for few days and was worse this morning. Patient is concerned that she has "dislocated" her right shoulder. She has had dislocations in the past. She had surgery performed in the distant past on her right shoulder. She is also complaining of right anterior knee pain. She did not suffer any fall or acute trauma. She states "I am falling apart". Patient denies chest pain. Patient denies shortness of breath. She does not have a cough and has not had fever. Patient has multiple medical problems including osteopenia, insulin-dependent diabetes, hyperlipidemia, hypothyroidism, hypertension, Parkinson's disease, coronary disease with cardiac stents and is on Plavix, peripheral neuropathy, migraine headaches and COPD as well as periph eral vascular disease Occurred: this morning Method of Injury: other (No known injury) Quality: aching Severity of Pain-Max: mild (To moderate) Severity of Pain-Current: mild Extremities Pain Location: shoulder: right, other: right (She also complains of right knee pain) Modifying Factors: Improves With: movement Associated Symptoms: none Allergies/Adverse Reactions: acetaminophen [From Lortab] Allergy (Mild, Verified 12/02/23 08:16) Nausea alprazolam [From Xanax] Allergy (Mild, Verified 12/02/23 08:16) Altered mental status-per pt hydrocodone bitartrate [From Lortab] Allergy (Mild, Verified 12/02/23 08:16) Home Medications: Alendronate Sodium 70 mg [Fosamax 70 MG] 70 mg PO WEEKLY 09/01/17 [History] Ergocalciferol (Vitamin D2) [Vitamin D] 50,000 unit PO WEEKLY 09/01/17 [History] Insulin Aspart [NovoLOG Insulin] 18 units SQ TIDWM 09/01/17 [History] Levothyroxine Sodium 50 Mcg [Synthroid 50 Mcg] 50 mcg PO DAILY 09/01/17 [History] Pravastatin Sodium 80 mg PO DAILY 09/01/17 [History] Clopidogrel Bisulfate [PLAVIX Tablet] 75 mg PO HS 10/12/18 [History] Aripiprazole 10 mg [Abilify 10 MG] 10 mg PO DAILY 11/22/20 [History] Aspirin EC 81 mg [Ecotrin 81 mg] 81 mg PO DAILY 11/22/20 [History] Famotidine 20 mg [Pepcid 20 MG] 20 mg PO BID 09/19/21 [History] Amlodipine Besylate [Norvasc] 10 mg PO DAILY 08/24/23 [History] Ferrous Sulfate [Iron] 325 mg PO DAILY 08/24/23 [History] Insulin Glargine,Hum.rec.anlog [Lantus Solostar] 22 unit SQ HS 08/24/23 [History] Albuterol 8 gm Mdi Hfa [Ventolin Hfa MDI] 1 - 2 puff IH Q4-6HPRN PRN 09/14/23 [History] Carbidopa/Levodopa [Carbidopa-Levo ER 25-100 Tab] 1 each PO BID 09/14/23 [History] Carvedilol 3.125 mg [Coreg 3.125 MG] 3.125 mg PO BID 09/14/23 [History] Fluticasone Propion/Salmeterol [Wixela 500-50 Inhub] 1 puff IH BID 09/14/23 [History] Spironolactone 25 mg [Aldactone 25 MG] 25 mg PO DAILY 09/14/23 [History] Hx Tetanus, Diphtheria Vaccination/Date Given: No Hx Influenza Vaccination/Date Given: Yes Hx Pneumococcal Vaccination/Date Given: Yes Travel Risk - International Travel Have you traveled outside of the country in past 3 weeks: No - Coronavirus Screening Are you exhibiting any of the following symptoms?: No Close contact with a COVID-19 positive Pt in past 14-21 Days: No - Vaccine Status Have you recieved a Covid-19 vaccination: No - Review of Systems Constitutional: No Symptoms Eyes: No Symptoms Ears, Nose, & Throat: No Symptoms Respiratory: No Symptoms Cardiac: No Symptoms Abdominal/Gastrointestinal: No Symptoms Genitourinary Symptoms: No Symptoms Musculoskeletal: No Symptoms Skin: No Symptoms Neurological: No Symptoms Psychological: No Symptoms Endocrine: No Symptoms Hematologic/Lymphatic: No Symptoms Immunological/Allergic: No Symptoms All Other Systems: Reviewed and Negative - Past Medical History Pertinent Past Medical History: Yes Neurological History: Migraines, Peripheral Neuropathy ENT History: Cataracts Cardiac History: Coronary Artery Disease, Hypertension, Peripheral Vascular Disease Respiratory History: COPD, Pneumonia Endocrine Medical History: Diabetes Type II, Hypothyroidism Musculoskeletal History: Arthritis GI Medical History: No Pertinent History History: No Pertinent History Psycho-Social History: Depression Female Reproductive Disorders: Fibroids Other Medical History: Parkinsons - Past Surgical History Past Surgical History: Yes Neuro Surgical History: No Pertinent History Cardiac: No Pertinent History, Cardiac Catheterization, Cardiac Stent, Vascular Surgery Respiratory: No Pertinent History Gastrointestinal: No Pertinent History Genitourinary: No Pertinent History Musculoskeletal: Joint Replacement, Orthopedic Surgery Female Surgical History: Section, Hysterectomy Other Surgical History: stent placed to l leg, priti. knee replacement, left femur fx with hdwe placed,right hip repair with hdwe placed, right shoulder joint repair - Social History Smoking Status: Former smoker How long have you smoked: 50 yrs Exposure to second hand smoke: Yes Drug Use: none Patient Lives Alone: No - Nursing Vital Signs Nursing Vital Signs: Initial Vital Signs Temperature 96.8 F 12/02/23 08:18 Pulse Rate 96 H 12/02/23 08:18 Respiratory Rate 20 12/02/23 08:18 Blood Pressure 158/66 12/02/23 08:18 O2 Sat by Pulse Oximetry 99 12/02/23 08:18 Pain Scale Pain Intensity 8 - Physical Exam General Appearance: no apparent distress, alert, obese Eyes, Ears, Nose, Throat Exam: normal ENT inspection, moist mucous membranes Neck Exam: normal inspection, non-tender, supple, full range of motion Cardiovascular/Respiratory Exam: chest non-tender, no respiratory distress Abdominal Exam: non-tender Back Exam: normal inspection, normal range of motion, No CVA tenderness, No vertebral tenderness Shoulder Exam: normal inspection, no evidence of injury, normal ROM, soft tissue tenderness, No deformity Elbow/Forearm Exam: normal inspection, non-tender, no evidence of injury, normal ROM Wrist Exam: normal inspection, non-tender, no evidence of injury, normal ROM Hand Exam: normal inspection, non-tender, no evidence of injury, normal ROM Neuro/Tendon Exam: normal sensation, normal motor functions, normal tendon functions, responds to pain, no evidence tendon injury Mental Status Exam: alert, oriented x 3, cooperative Skin Exam: normal color, warm, dry SpO2 Interpretation: normal Comments: Examination of the patient's right knee reveals tenderness without evidence of deformity. She has full range of motion. There is no evidence of cellulitis. Nose no obvious swelling. There is no evidence of trauma. - Course Nursing assessment & vital signs reviewed: Yes Ordered Tests: Active Orders 24 hr Category Date Time Status KNEE (3 VIEWS) Stat Exams 12/02/23 08:24 Completed SHOULDER Stat Exams 12/02/23 08:24 Completed - Progress Progress Note: 12/02/23 08:42 This patient's medical issue is 1 of low complexity. The level of complexity and the workup performed is based on review of the patient's past medical history, review of the patient's medication list, review of patient drug allergy list, history present illness and physical findings on examination. The workup in this patient includes x-ray of the patient's right shoulder and x-ray of the patient's right knee 12/02/23 09:37 I provided the initial interpretation of the x-ray of the patient's right shoulder and right knee. With regard to both studies I do not see an acute fracture or dislocation. Since the patient has had shoulder replacement and knee replacement both on the right side, we opted to wait for the final read from the radiologist. Final read from the radiologist for both studies reveal the hardware to be intact without evidence of acute fracture or dislocation. Counseled pt/family regarding: diagnosis, need for follow-up, rad results Medical Desision Making - Diagnostic Testing Diagnostic test were ordered, analyzed, and reviewed by me: Yes Radiological Interpretation: Interpreted by me, Reviewed by me, Teleradiologist Report - Departure Departure Disposition: Home Clinical Impression: Right shoulder pain, Right anterior knee pain Condition: Stable Critical Care Time: No Referrals: KIARA SHEPARD MD [Primary Care Provider] - Follow up/PCP as directed Additional Instructions: Ice pack to right shoulder and right knee 3 times a day for the next 48 hours. Call your primary care provider today, 12/02/2023, to make arrangements for outpatient pain control as well as arranging a follow-up appointment the next 5 to 7 days.
[2023-12-02 08:28] VITALS: RESP 20; TEMP 96.8
--- NOTE | 2023-12-02 09:27 | XRAY ---
Indication: Pain. 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 Also incompletely visualized femoral intramedullary matthieu and 2 transverse screws appearing fractured. No other bony, articular, or soft tissue abnormalities.
--- NOTE | 2023-12-02 09:29 | XRAY ---
Indication: Pain. Comparison: None 3 portable views right shoulder demonstrates osteopenia, total shoulder arthroplasty with intact bipolar prosthesis, partial resection distal right clavicle, mild multilevel thoracic degenerative spondylosis, and left neck surgical clips. No other bony, articular, or soft tissue abnormalities.
[2023-12-02 09:39] VITALS: BP 146/61; PULSE 79; O2SAT 97
[2023-12-02] MEDS ORDERED: PERCOCET TABLET 5/325MG ONE (09:51)
[2023-12-02] MEDS: PERCOCET TABLET 5/325MG PO STA (09:52)
== END 2023-12-02 10:26 | disposition home or self-care (01) ==
LOC: ED 08:04
DX: M25.511 Pain in right shoulder (principal); M25.561 Pain in right knee; Z96.611 Presence of right artificial shoulder joint; Z96.651 Presence of right artificial knee joint; E11.42 Type 2 diabetes mellitus with diabetic polyneuropathy; E78.5 Hyperlipidemia, unspecified; I10 Essential (primary) hypertension; Z79.02 Long term (current) use of antithrombotics/antiplatelets; Z79.4 Long term (current) use of insulin; Z79.899 Other long term (current) drug therapy; Z28.310 Unvaccinated for COVID-19
CPT/HCPCS: 73030; 73562; 99283; A9270-GY

== ENCOUNTER 2023-12-26 14:52 | Emergency (ER) | payer MEDICARE ==
[2023-12-26 15:14] VITALS: TEMP 97.7
[2023-12-26 16:57] LABS: Absolute Neutrophil Ct (ANC) 7.28 x10^3/uL (1.4-6.9); BASOPHIL % 0.6 % (0.0-0.4); Basophil (Absolute #) 0.06 x10^3/uL (0-0.4); Eosinophil % 1.5 % (0.00-5.0); Eosinophil (Absolute #) 0.15 x10^3/uL (0-0.5); Hematocrit 31.7 % (35-47); Hemoglobin 10.1 g/dL (12.0-16.0); IMMATURE GRAN # 0.06 x10^3u/L (0.00-0.03); IMMATURE GRAN % 0.6 % (0.00-0.4); Lymphocyte (Absolute #) 1.54 x10^3/uL (1.0-4.6); Lymphocytes % 15.9 % (24.0-44.0); Mean Cell Volume 91.4 fL (78-100); Mean Corpuscular Hemoglobin 29.1 pg (26-32); Mean Corpuscular Hgb Concent. 31.9 g/dL (32-36); Mean Platelet Volume 8.9 fL (7.5-11.0); Monocytes % 6.2 % (0.0-12.0); Neutrophil % 75.2 % (36.0-66.0); Platelet Count 319 x10^3/uL (150-450); Red Blood Count 3.47 x10^6/uL (4.1-5.4); White Blood Count 9.7 x10^3/uL (4.0-10.5)
[2023-12-26 17:11] LABS: ALBUMIN 3.4 g/dL (3.5-5.0); ANION GAP 10.3 MEQ/L (5-15); BILIRUBIN,TOTAL 0.8 mg/dL (0.2-1.3); Calcium 9.2 mg/dL (8.4-10.2); Creatinine 1 0.82 mg/dL (0.52-1.04); EST GLOMERULAR FILTRATION RATE 73.6 ML/MIN; Potassium 4.5 mmol/L (3.5-5.1); Total Protein 5.8 g/dL (6.3-8.2)
[2023-12-26 17:12] LABS: INR 0.97 (0.8-3.0); PROTIME 10.6 SECONDS (9.4-12.5); PTT 24.7 SECONDS (25.1-36.5)
[2023-12-26 17:22] LABS: TROPONIN 0.014 ng/mL (0.000-0.034)
--- NOTE | 2023-12-26 18:35 | ERPHSYRPT ---
- History of Present Illness Time Seen by Provider: 12/26/23 16:00 Source: patient, family Exam Limitations: no limitations Patient Subjective Stated Complaint: Patient c/o left lower posterior leg (behind the knee and calf area) for a couple of weeks that is worse today. Patient states this is the first day that it has made her unable to ambulate. Denies fall or injury to area of pain. Triage Nursing Assessment: Patient arrived by ambulance. She is alert and oriented. SKin tone normal but dry. BLE examined. RLE is actually more swollen than the LLE. Skin tone normal to both extermities. Pedal pulses present and weak bilaterally. Physician History: 78yo f presents for posterior fossa knee pain that reportedly started last week but significantly worsened this AM. Pt states she has been unable to ambulate since last night because the pain is so severe. Pt states the pain is worse in her left knee but is present b/l, states the pain starts in the posterior fossa and radiates all the way down to her foot. Pt reports swelling in b/l LEs, has hx of CHF. 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 Pt currently denies cp, soa, n/v/abdominal pain. Pt denies recent falls or trauma. Pt was seen in ED last week and informed she has significant arthritis. Occurred: yesterday Quality: constant, sharpness Severity of Pain-Max: moderate Severity of Pain-Current: moderate Lower Extremities Pain: knee: bilateral Modifying Factors: Improves With: nothing Associated Symptoms: unable to bear weight Allergies/Adverse Reactions: alprazolam [From Xanax] Allergy (Mild, Verified 12/26/23 14:57) Altered mental status-per pt hydrocodone bitartrate [From Lortab] Allergy (Mild, Verified 12/26/23 14:57) Home Medications: Alendronate Sodium 70 mg [Fosamax 70 MG] 70 mg PO WEEKLY 09/01/17 [History] Insulin Aspart [NovoLOG Insulin] 18 units SQ TIDWM 09/01/17 [History] Pravastatin Sodium 80 mg PO DAILY 09/01/17 [History] Clopidogrel Bisulfate [PLAVIX Tablet] 75 mg PO HS 10/12/18 [History] Aripiprazole 10 mg [Abilify 10 MG] 10 mg PO DAILY 11/22/20 [History] Aspirin EC 81 mg [Ecotrin 81 mg] 81 mg PO DAILY 11/22/20 [History] Amlodipine Besylate [Norvasc] 10 mg PO DAILY 08/24/23 [History] Insulin Glargine,Hum.rec.anlog [Lantus Solostar] 22 unit SQ HS 08/24/23 [History] Albuterol 8 gm Mdi Hfa [Ventolin Hfa MDI] 1 - 2 puff IH Q4-6HPRN PRN 1 11/14/22 [History] Carbidopa/Levodopa [Carbidopa-Levodopa 25-250 Tab] 1 tab PO TID 12/26/23 [History] Cholecalciferol (Vitamin D3) [Vitamin D3] 1 cap PO WEEKLY 12/26/23 [History] Ergocalciferol (Vitamin D2) [Vitamin D2] 1 cap PO WEEKLY 12/26/23 [History] Famotidine [Pepcid] 1 tab PO BID 12/26/23 [History] Ferrous Sulfate [Iron] 1 tab PO DAILY 12/26/23 [History] Lisinopril 10 mg [Zestril 10 MG] 1 tab PO DAILY 12/26/23 [History] Hx Tetanus, Diphtheria Vaccination/Date Given: Yes Hx Influenza Vaccination/Date Given: Yes Hx Pneumococcal Vaccination/Date Given: Yes Immunizations Up to Date: Yes Travel Risk - International Travel Have you traveled outside of the country in past 3 weeks: No - Coronavirus Screening Are you exhibiting any of the following symptoms?: No Close contact with a COVID-19 positive Pt in past 14-21 Days: No - Vaccine Status Have you recieved a Covid-19 vaccination: No - Review of Systems Constitutional: No Symptoms Respiratory: No Symptoms Cardiac: No Symptoms Abdominal/Gastrointestinal: No Symptoms Musculoskeletal: Arthralgias - Past Medical History Pertinent Past Medical History: Yes Neurological History: Migraines, Peripheral Neuropathy ENT History: Cataracts Cardiac History: Coronary Artery Disease, Hypertension, Peripheral Vascular Disease Respiratory History: COPD, Pneumonia Endocrine Medical History: Diabetes Type II, Hypothyroidism Musculoskeletal History: Arthritis GI Medical History: No Pertinent History History: No Pertinent History Psycho-Social History: Depression Female Reproductive Disorders: Fibroids Other Medical History: Parkinsons - Past Surgical History Past Surgical History: Yes Neuro Surgical History: No Pertinent History Cardiac: No Pertinent History, Cardiac Catheterization, Cardiac Stent, Vascular Surgery Respiratory: No Pertinent History Gastrointestinal: No Pertinent History Genitourinary: No Pertinent History Musculoskeletal: Joint Replacement, Orthopedic Surgery Female Surgical History: Section, Hysterectomy Other Surgical History: stent placed to l leg, priti. knee replacement, left femur fx repair, right hip repair, right shoulder joint repair - Social History Smoking Status: Former smoker How long have you smoked: 50 yrs Exposure to second hand smoke: Yes Drug Use: none Patient Lives Alone: No - Nursing Vital Signs Nursing Vital Signs: Initial Vital Signs Temperature 97.7 F 12/26/23 15:01 Pulse Rate 60 12/26/23 15:01 Respiratory Rate 18 12/26/23 15:01 Blood Pressure 131/47 12/26/23 15:01 O2 Sat by Pulse Oximetry 98 12/26/23 15:01 Pain Scale Pain Intensity 7 - Physical Exam General Appearance: no apparent distress Cardiovascular/Respiratory Exam: chest non-tender, normal breath sounds, regular rate/rhythm Gastrointestinal/Abdominal Exam: non-tender, soft Legs Exam: bilateral leg: non-tender, normal inspection, no evidence of injury, swelling (right worse than left +1) Knees Exam: bilateral knee: non-tender, normal inspection, no evidence of injury, swelling (right worse than left +1) Mental Status Exam: alert, oriented x 3 Skin Exam: normal color SpO2 Interpretation: normal SpO2: 99 O2 Delivery: Room Air Ordered Tests: Active Orders 24 hr Category Date Time Status VENOUS BILATERAL EXTREMITY [US] Stat Exams 12/26/23 15:24 Completed CBC W DIFF Stat Lab 12/26/23 16:50 Completed CK-Creatinine Phosphokinase Stat Lab 12/26/23 16:50 Completed CMP Stat Lab 12/26/23 16:50 Completed NT PRO BNPII Stat Lab 12/26/23 16:50 Completed PROTIME WITH INR Stat Lab 12/26/23 16:50 Completed PTT Stat Lab 12/26/23 16:50 Completed TROPONIN Q4H Lab 12/26/23 16:50 Completed TROPONIN Q4H Lab 12/26/23 20:00 Ordered TROPONIN Q4H Lab 12/27/23 00:00 Ordered Medication Summary Discontinued Medications Generic Name Dose Route Start Last Admin Trade Name Freq PRN Reason Stop Dose Admin Hydrocodone Bitart/Acetaminophen 2 tab 12/26/23 19:29 Hydrocodone/Apap 5/325 1 Tab Tablet PO 12/26/23 19:30 SENT HOME W/ PATIENT ONE Fentanyl Citrate 25 mcg 12/26/23 19:28 12/26/23 19:48 Fentanyl Citrate 100 Mcg/2 Ml* Vial IV 12/26/23 19:29 25 mcg STAT ONE Administration Fentanyl Citrate Confirm 12/26/23 19:45 Fentanyl Citrate 100 Mcg/2 Ml* Vial Administered 12/26/23 19:46 Dose 100 mcg .ROUTE .STK-MED ONE Lab/Rad Data: Laboratory Result Diagrams 12/26/23 16:50 12/26/23 16:50 Laboratory Results 12/26/23 12/26/23 12/26/23 Range/Units 16:50 16:50 16:50 WBC (4.0-10.5) x10^3/uL RBC (4.1-5.4) x10^6/uL Hgb (12.0-16.0) g/dL Hct (35-47) % MCV (78-100) fL MCH (26-32) pg MCHC (32-36) g/dL RDW (11.5-14.0) % Plt Count (150-450) x10^3/uL MPV (7.5-11.0) fL Gran % (36.0-66.0) % Immature Gran % (Auto) (0.00-0.4) % Nucleat RBC Rel Count (0.00-0.1) % Eos # (Auto) (0-0.5) x10^3/uL Immature Gran # (Auto) (0.00-0.03) x10^3u/L Absolute Lymphs (auto) (1.0-4.6) x10^3/uL Absolute Monos (auto) (0.0-1.3) x10^3/uL Absolute Nucleated RBC (0.00-0.01) x10^3u/L Lymphocytes % (24.0-44.0) % Monocytes % (0.0-12.0) % Eosinophils % (0.00-5.0) % Basophils % (0.0-0.4) % Absolute Granulocytes (1.4-6.9) x10^3/uL Basophils # (0-0.4) x10^3/uL PT 10.6 (9.4-12.5) SECONDS INR 0.97 (0.8-3.0) APTT 24.7 L (25.1-36.5) SECONDS Sodium 127 L (137-145) mmol/L Potassium 4.5 (3.5-5.1) mmol/L Chloride 96 L (98-107) mmol/L Carbon Dioxide 25 (22-30) mmol/L Anion Gap 10.3 (5-15) MEQ/L BUN 18 H (7-17) mg/dL Creatinine 0.82 (0.52-1.04) mg/dL Estimated GFR 73.6 ML/MIN Glucose 66 L (74-106) mg/dL Calcium 9.2 (8.4-10.2) mg/dL Total Bilirubin 0.80 (0.2-1.3) mg/dL AST 19 (14-36) U/L ALT 6 (0-35) U/L Alkaline Phosphatase 82 (38-126) U/L Creatine Kinase 62 (30-135) U/L Troponin I 0.014 (0.000-0.034) ng/mL NT-Pro-B Natriuret Pep 1680 (<300) pg/mL Serum Total Protein 5.8 L (6.3-8.2) g/dL Albumin 3.4 L (3.5-5.0) g/dL 12/26/23 Range/Units 16:50 WBC 9.7 (4.0-10.5) x10^3/uL RBC 3.47 L (4.1-5.4) x10^6/uL Hgb 10.1 L (12.0-16.0) g/dL Hct 31.7 L (35-47) % MCV 91.4 (78-100) fL MCH 29.1 (26-32) pg MCHC 31.9 L (32-36) g/dL RDW 13.0 (11.5-14.0) % Plt Count 319 (150-450) x10^3/uL MPV 8.9 (7.5-11.0) fL Gran % 75.2 H (36.0-66.0) % Immature Gran % (Auto) 0.6 H (0.00-0.4) % Nucleat RBC Rel Count 0.0 (0.00-0.1) % Eos # (Auto) 0.15 (0-0.5) x10^3/uL Immature Gran # (Auto) 0.06 H (0.00-0.03) x10^3u/L Absolute Lymphs (auto) 1.54 (1.0-4.6) x10^3/uL Absolute Monos (auto) 0.60 (0.0-1.3) x10^3/uL Absolute Nucleated RBC 0.00 (0.00-0.01) x10^3u/L Lymphocytes % 15.9 L (24.0-44.0) % Monocytes % 6.2 (0.0-12.0) % Eosinophils % 1.5 (0.00-5.0) % Basophils % 0.6 (0.0-0.4) % Absolute Granulocytes 7.28 H (1.4-6.9) x10^3/uL Basophils # 0.06 (0-0.4) x10^3/uL PT (9.4-12.5) SECONDS INR (0.8-3.0) APTT (25.1-36.5) SECONDS Sodium (137-145) mmol/L Potassium (3.5-5.1) mmol/L Chloride (98-107) mmol/L Carbon Dioxide (22-30) mmol/L Anion Gap (5-15) MEQ/L BUN (7-17) mg/dL Creatinine (0.52-1.04) mg/dL Estimated GFR ML/MIN Glucose (74-106) mg/dL Calcium (8.4-10.2) mg/dL Total Bilirubin (0.2-1.3) mg/dL AST (14-36) U/L ALT (0-35) U/L Alkaline Phosphatase (38-126) U/L Creatine Kinase (30-135) U/L Troponin I (0.000-0.034) ng/mL NT-Pro-B Natriuret Pep (<300) pg/mL Serum Total Protein (6.3-8.2) g/dL Albumin (3.5-5.0) g/dL - Progress Progress: improved Progress Note: 12/26/23 19:30 pt had pain improved by fentanyl US b/l LE pending Na 127 - reportedly runs chronically low and this is baseline Daughter requesting to take pt home, states that she is convinced that pt's pain is caused by arthritis, which I agree is likely the case based on prior imaging pt still complaining of pain in b/l knees daughter is confident she can take care of mother at home 12/26/23 19:35 venous doppler US b/l LE negative for DVT pain likely 2/2 arthritis, plan to give 25mcg fentanyl IV and dc home w/ 2 norco 5mg tablets instructed to follow up w/ Dr Shepard as soon as possible 12/26/23 20:04 - Departure Departure Disposition: Home Clinical Impression: Osteoarthritis of knees, bilateral Qualifiers: Osteoarthritis type: primary Qualified Code(s): M17.0 - Bilateral primary oste oarthritis of knee Condition: Stable Critical Care Time: No Referrals: KIARA SHEPARD MD [Primary Care Provider] - Follow up/PCP as directed Additional Instructions: dc home with daughter instructed to follow up closely w/ Dr Shepard, preferably tomorrow given 2 [place] 5mg tablets to take home US negative for DVTs b/l return to ED if legs become swollen, red, hot, exquisitely painful
--- NOTE | 2023-12-26 19:03 | XRAY ---
Indication: Bilateral pain and edema 1 month. Two-dimensional sonogram and color Doppler imaging major venous vessels left and right leg performed. Comparison: None No thrombus seen in the examined deep venous vessels left and right leg including greater saphenous vein. Veins demonstrate normal compressibility. Venous waveforms are normal with and without augmentation. Impression: Left and right leg negative for DVT. Comment: Preliminary report was given.
[2023-12-26 19:35] VITALS: O2SAT 99
[2023-12-26] MEDS ORDERED: SUBLIMAZE 100 MCG/2 ML ONE (19:45)
[2023-12-26] MEDS: SUBLIMAZE 100 MCG/2 ML IV ONE (19:48)
[2023-12-26 20:11] VITALS: BP 152/55; PULSE 67; RESP 20
[2023-12-26] MEDS ORDERED: NORCO 5/325 MG ONE ×2 (20:12→20:17)
[2023-12-26] MEDS: NORCO 5/325 MG PO ONE (20:19)
== END 2023-12-26 20:36 | disposition home or self-care (01) ==
LOC: ED 14:52
DX: M17.0 Bilateral primary osteoarthritis of knee (principal); M25.562 Pain in left knee; M25.561 Pain in right knee; I11.0 Hypertensive heart disease with heart failure; I50.9 Heart failure, unspecified; E11.42 Type 2 diabetes mellitus with diabetic polyneuropathy; Z79.4 Long term (current) use of insulin; Z79.02 Long term (current) use of antithrombotics/antiplatelets; Z79.899 Other long term (current) drug therapy; Z28.310 Unvaccinated for COVID-19; Z86.718 Personal history of other venous thrombosis and embolism
CPT/HCPCS: 36415; 80053; 82550; 83880; 84484; 85025; 85610; 85730; 93970; 96374; 99284; J3010; A9270-GY